=== PATIENT | female | born 1945 | race Caucasian/White ===

== ENCOUNTER 2019-08-29 17:40 | Inpatient (IN) | payer MEDICARE, MEDICAID ==
[2019-08-29] MEDS ORDERED: Morphine 10 MG/ML Syringe IVPUSH ONE (18:12)
[2019-08-29] MEDS ORDERED: Ondansetron 4 MG/2 ML SDV IVPUSH ONE (18:12)
--- NOTE | 2019-08-29 18:16 | EDM.PDOC ---
<EmeryPreetiashok - Last Filed: 08/29/19 19:15> ED HPI GENERAL MEDICAL PROBLEM - General Chief Complaint: Abdominal Pain Stated Complaint: SICK Time Seen by Provider: 08/29/19 18:14 Source of Information: Reports: Patient History Limitations: Reports: No Limitations - History of Present Illness INITIAL COMMENTS - FREE TEXT/NARRATIVE: Patient 73-year-old female no significant past medical history presenting with chief complaint of right lower quadrant abdominal pain. Per the patient, the pain started several days ago and was initially generalized. Pain is since localized to the right lower quadrant. The pain does not radiate. Patient has some associated chills but no fevers or vomiting. Patient denies any urinary symptoms. Nothing seems to make the pain better or worse. Patient does not take any medication prior to arrival. Pmhx: None Pshx: None Family Hx: noncontributory Smoking history? no Etoh use? none Drug use? none In addition to that documented in the HPI above, the additional ROS was obtained : Constitutional: Denies fevers or chills Eyes: Denies vision changes ENMT: Denies sore throat CV: Denies chest pain Resp: Denies SOB GI: Denies vomiting or diarrhea : Denies painful urination MSK: Denies recent trauma Skin: Denies new rashes Neuro: Denies new numbness or tingling or weakness Endocrine: Denies unexpected weight loss Heme: Denies bleeding disorders I have reviewed the triage vital signs Const: Well nourished, well developed, appears stated age Eyes: PERRL, no conjunctival injection HENT: NCAT, Neck supple without meningismus CV: RRR, Warm, well-perfused extremities RESP: CTAB, Unlabored respiratory effort GI: Tender palpation of the right lower quadrant with positive McBurney's point. Soft abdomen with no guarding, non-distended, no masses MSK: No gross deformities appreciated Skin: Warm, dry. No rashes Neuro: Alert, tar chaser II-XII grossly intact. Sensation and motor function of extremities grossly intact. Psych: Appropriate mood and affect Assessment and plan: Patient 74-year-old female presenting with a chief complaint of right lower quadrant abdominal pain. Patient is well-appearing and nontoxic. Differential diagnosis include appendicitis, colitis, urinary tract infection, kidney stone. Labs and CT scan were ordered to evaluate for each of these differentials. Patient given pain medications and antiemetics in the ER. BC demonstrated leukocytosis to 15,000. Patient had noticeable acute kidney injury with a GFR of 40. Patient given IV fluids before and after CT scan to reduce risk of further kidney damage. Patient will be signed out to overnight attending pending results for the CT scan. High concern for appendicitis at the time of signout. rlq Pain Score (Numeric/FACES): 5 - Related Data Allergies Allergy/AdvReac Type Severity Reaction Status Date / Time No Known Allergies Allergy Verified 08/29/19 18:09 ED ROS GENERAL - Review of Systems Review Of Systems: See Below ED EXAM, GI/ABD - Physical Exam Exam: See Below Course - Vital Signs Last Recorded V/S: Last Vital Signs Temp 36.6 C 08/29/19 20:45 Pulse 82 08/29/19 20:45 Resp 18 08/29/19 20:45 BP 119/54 L 08/29/19 20:45 Pulse Ox 97 08/29/19 20:45 - Orders/Labs/Meds Orders: Active Orders 24 hr Category Date Time Status Patient Status [ADT] Routine ADT 08/29/19 20:45 Active Antiembolic Devices [RC] PER UNIT ROUTINE Care 08/29/19 20:44 Active Insert Urinary Catheter [OM.PC] Timed Care 08/29/19 20:44 Ordered Oxygen Therapy [RC] ASDIRECTED Care 08/29/19 20:44 Active RT Incentive Spirometry [RC] Q1HWA Care 08/29/19 20:44 Active Skin Preparation [RC] .PREOP Care 08/29/19 20:44 Active Urinary Catheter Assessment [RC] ASDIRECTED Care 08/29/19 20:44 Active Urinary Catheter Assessment [RC] ASDIRECTED Care 08/29/19 20:44 Active Urinary Catheter Assessment [RC] ASDIRECTED Care 08/29/19 20:44 Active Vital Signs [RC] PER UNIT ROUTINE Care 08/29/19 20:44 Active Nothing Per Oral Diet [DIET] Diet 08/29/19 Dinner Active CULTURE BLOOD [BC] Stat Lab 08/29/19 19:10 Received CULTURE BLOOD [BC] Stat Lab 08/29/19 19:40 Received CULTURE URINE [RM] Stat Lab 08/29/19 18:05 Received Lactated Ringers [Ringers, Lactated] 1,000 ml Med 08/29/19 20:45 Active IV ASDIRECTED Sodium Chloride 0.9% [Saline Flush] Med 08/29/19 19:28 Active 10 ml FLUSH ASDIRECTED PRN Sodium Chloride 0.9% [Saline Flush] Med 08/29/19 19:28 Active 2.5 ml FLUSH ASDIRECTED PRN Antiembolic Hose [OM.PC] Routine Oth 08/29/19 20:44 Ordered Blood Culture x2 Reflex Set [OM.PC] Stat Oth 08/29/19 19:28 Ordered Saline Lock Insert [OM.PC] Stat Oth 08/29/19 19:28 Ordered Resuscitation Status Routine Resus Stat 08/29/19 20:44 Ordered Medication Orders Lactated Ringer's (Ringers, Lactated) 1,000 mls @ 125 mls/hr IV ASDIRECTED AURA Last Admin: 08/29/19 21:07 Dose: 125 mls/hr Sodium Chloride (Saline Flush) 10 ml FLUSH ASDIRECTED PRN PRN Reason: Keep Vein Open Sodium Chloride (Saline Flush) 2.5 ml FLUSH ASDIRECTED PRN PRN Reason: Keep Vein Open Labs: Laboratory Tests 08/29/19 08/29/19 08/29/19 Range/Units 18:05 18:10 18:10 WBC 15.25 H (4.0-11.0) K/uL RBC 4.64 (4.30-5.90) M/uL Hgb 12.5 (12.0-16.0) g/dL Hct 37.1 (36.0-46.0) % MCV 80.0 (80.0-98.0) fL MCH 26.9 L (27.0-32.0) pg MCHC 33.7 (31.0-37.0) g/dL RDW Std Deviation 44.4 (28.0-62.0) fl RDW Coeff of Gibran 15 (11.0-15.0) % Plt Count 397 (150-400) K/uL MPV 10.00 (7.40-12.00) fL Neut % (Auto) 81.4 H (48.0-80.0) % Lymph % (Auto) 9.0 L (16.0-40.0) % [place] % (Auto) 9.4 (0.0-15.0) % Eos % (Auto) 0.1 (0.0-7.0) % Baso % (Auto) 0.1 (0.0-1.5) % Neut # (Auto) 12.4 H (1.4-5.7) K/uL Lymph # (Auto) 1.4 (0.6-2.4) K/uL [place] # (Auto) 1.4 H (0.0-0.8) K/uL Eos # (Auto) 0.0 (0.0-0.7) K/uL Baso # (Auto) 0.0 (0.0-0.1) K/uL Nucleated RBC % 0.0 /100WBC Nucleated RBCs # 0 K/uL INR Lactate (0.20-2.00) mmol/L Sodium 130 L (136-145) mmol/L Potassium 3.7 (3.5-5.1) mmol/L Chloride 92 L (98-107) mmol/L Carbon Dioxide 23.5 (21.0-32.0) mmol/L BUN 58 H (7.0-18.0) mg/dL Creatinine 1.3 H (0.6-1.0) mg/dL Est Cr Clr Drug Dosing 30.48 mL/min Estimated GFR (MDRD) 40.2 ml/min Glucose 126 H (74-106) mg/dL Calcium 9.3 (8.5-10.1) mg/dL Total Bilirubin 0.6 (0.2-1.0) mg/dL AST 25 (15-37) IU/L ALT 18 (14-63) IU/L Alkaline Phosphatase 91 (46-116) U/L Troponin I (0.000-0.056) ng/mL Total Protein 8.5 H (6.4-8.2) g/dL Albumin 2.8 L (3.4-5.0) g/dL Globulin 5.7 H (2.6-4.0) g/dL Albumin/Globulin Ratio 0.5 L (0.9-1.6) Urine Color YELLOW Urine Appearance SLT CLOUDY Urine pH 6.0 (5.0-8.0) Ur Specific [place] 1.025 (1.001-1.035) Urine Protein 100 H (NEGATIVE) mg/dL Urine Glucose (UA) NEGATIVE (NEGATIVE) mg/dL Urine Ketones TRACE H (NEGATIVE) mg/dL Urine Occult Blood SMALL H (NEGATIVE) Urine Nitrite NEGATIVE (NEGATIVE) Urine Bilirubin MODERATE H (NEGATIVE) Urine Ictotest DOVETAILER Urine Urobilinogen 1.0 (<2.0) EU/dL Ur Leukocyte Esterase SMALL H (NEGATIVE) U Hyaline Cast (Auto) DOVETAILER Urine RBC 1-2 (0-2/HPF) Urine WBC 3-6 (0-5/HPF) Ur Epithelial Cells FEW (NONE-FEW) Ur Squamous Epith Cells DOVETAILER Ur Renal Epithelial Cell DOVETAILER Calcium Oxalate Crystal DOVETAILER Uric Acid Crystals DOVETAILER Triple Phos Crystals DOVETAILER Other Crystals DOVETAILER Amorphous Sediment FEW (NEGATIVE) Urine Bacteria 2+ H (NEGATIVE) Fine Granular Casts DOVETAILER Coarse Granular Casts DOVETAILER Waxy Casts DOVETAILER RBC Casts DOVETAILER WBC Casts DOVETAILER Urine Mucus FEW (NONE-MOD) Urine Other DOVETAILER Urine Trichomonas DOVETAILER Urine Yeast DOVETAILER Urine Sperm DOVETAILER Ur Oval Fat Bodies DOVETAILER Urinalysis Comment DOVETAILER SARS-CoV-2 RNA (RT-PCR) (NEGATIVE) 08/29/19 08/29/19 08/29/19 Range/Units 18:10 19:40 19:40 WBC (4.0-11.0) K/uL RBC (4.30-5.90) M/uL Hgb (12.0-16.0) g/dL Hct (36.0-46.0) % MCV (80.0-98.0) fL MCH (27.0-32.0) pg MCHC (31.0-37.0) g/dL RDW Std Deviation (28.0-62.0) fl RDW Coeff of Gibran (11.0-15.0) % Plt Count (150-400) K/uL MPV (7.40-12.00) fL Neut % (Auto) (48.0-80.0) % Lymph % (Auto) (16.0-40.0) % [place] % (Auto) (0.0-15.0) % Eos % (Auto) (0.0-7.0) % Baso % (Auto) (0.0-1.5) % Neut # (Auto) (1.4-5.7) K/uL Lymph # (Auto) (0.6-2.4) K/uL [place] # (Auto) (0.0-0.8) K/uL Eos # (Auto) (0.0-0.7) K/uL Baso # (Auto) (0.0-0.1) K/uL Nucleated RBC % /100WBC Nucleated RBCs # K/uL INR 1.04 Lactate 1.0 (0.20-2.00) mmol/L Sodium (136-145) mmol/L Potassium (3.5-5.1) mmol/L Chloride (98-107) mmol/L Carbon Dioxide (21.0-32.0) mmol/L BUN (7.0-18.0) mg/dL Creatinine (0.6-1.0) mg/dL Est Cr Clr Drug Dosing mL/min Estimated GFR (MDRD) ml/min Glucose (74-106) mg/dL Calcium (8.5-10.1) mg/dL Total Bilirubin (0.2-1.0) mg/dL AST (15-37) IU/L ALT (14-63) IU/L Alkaline Phosphatase (46-116) U/L Troponin I < 0.050 (0.000-0.056) ng/mL Total Protein (6.4-8.2) g/dL Albumin (3.4-5.0) g/dL Globulin (2.6-4.0) g/dL Albumin/Globulin Ratio (0.9-1.6) Urine Color Urine Appearance Urine pH (5.0-8.0) Ur Specific [place] (1.001-1.035) Urine Protein (NEGATIVE) mg/dL Urine Glucose (UA) (NEGATIVE) mg/dL Urine Ketones (NEGATIVE) mg/dL Urine Occult Blood (NEGATIVE) Urine Nitrite (NEGATIVE) Urine Bilirubin (NEGATIVE) Urine Ictotest Urine Urobilinogen (<2.0) EU/dL Ur Leukocyte Esterase (NEGATIVE) U Hyaline Cast (Auto) Urine RBC (0-2/HPF) Urine WBC (0-5/HPF) Ur Epithelial Cells (NONE-FEW) Ur Squamous Epith Cells Ur Renal Epithelial Cell Calcium Oxalate Crystal Uric Acid Crystals Triple Phos Crystals Other Crystals Amorphous Sediment (NEGATIVE) Urine Bacteria (NEGATIVE) Fine Granular Casts Coarse Granular Casts Waxy Casts RBC Casts WBC Casts Urine Mucus (NONE-MOD) Urine Other Urine Trichomonas Urine Yeast Urine Sperm Ur Oval Fat Bodies Urinalysis Comment SARS-CoV-2 RNA (RT-PCR) (NEGATIVE) 08/29/19 Range/Units 20:35 WBC (4.0-11.0) K/uL RBC (4.30-5.90) M/uL Hgb (12.0-16.0) g/dL Hct (36.0-46.0) % MCV (80.0-98.0) fL MCH (27.0-32.0) pg MCHC (31.0-37.0) g/dL RDW Std Deviation (28.0-62.0) fl RDW Coeff of Gibran (11.0-15.0) % Plt Count (150-400) K/uL MPV (7.40-12.00) fL Neut % (Auto) (48.0-80.0) % Lymph % (Auto) (16.0-40.0) % [place] % (Auto) (0.0-15.0) % Eos % (Auto) (0.0-7.0) % Baso % (Auto) (0.0-1.5) % Neut # (Auto) (1.4-5.7) K/uL Lymph # (Auto) (0.6-2.4) K/uL [place] # (Auto) (0.0-0.8) K/uL Eos # (Auto) (0.0-0.7) K/uL Baso # (Auto) (0.0-0.1) K/uL Nucleated RBC % /100WBC Nucleated RBCs # K/uL INR Lactate (0.20-2.00) mmol/L Sodium (136-145) mmol/L Potassium (3.5-5.1) mmol/L Chloride (98-107) mmol/L Carbon Dioxide (21.0-32.0) mmol/L BUN (7.0-18.0) mg/dL Creatinine (0.6-1.0) mg/dL Est Cr Clr Drug Dosing mL/min Estimated GFR (MDRD) ml/min Glucose (74-106) mg/dL Calcium (8.5-10.1) mg/dL Total Bilirubin (0.2-1.0) mg/dL AST (15-37) IU/L ALT (14-63) IU/L Alkaline Phosphatase (46-116) U/L Troponin I (0.000-0.056) ng/mL Total Protein (6.4-8.2) g/dL Albumin (3.4-5.0) g/dL Globulin (2.6-4.0) g/dL Albumin/Globulin Ratio (0.9-1.6) Urine Color Urine Appearance Urine pH (5.0-8.0) Ur Specific [place] (1.001-1.035) Urine Protein (NEGATIVE) mg/dL Urine Glucose (UA) (NEGATIVE) mg/dL Urine Ketones (NEGATIVE) mg/dL Urine Occult Blood (NEGATIVE) Urine Nitrite (NEGATIVE) Urine Bilirubin (NEGATIVE) Urine Ictotest Urine Urobilinogen (<2.0) EU/dL Ur Leukocyte Esterase (NEGATIVE) U Hyaline Cast (Auto) Urine RBC (0-2/HPF) Urine WBC (0-5/HPF) Ur Epithelial Cells (NONE-FEW) Ur Squamous Epith Cells Ur Renal Epithelial Cell Calcium Oxalate Crystal Uric Acid Crystals Triple Phos Crystals Other Crystals Amorphous Sediment (NEGATIVE) Urine Bacteria (NEGATIVE) Fine Granular Casts Coarse Granular Casts Waxy Casts RBC Casts WBC Casts Urine Mucus (NONE-MOD) Urine Other Urine Trichomonas Urine Yeast Urine Sperm Ur Oval Fat Bodies Urinalysis Comment SARS-CoV-2 RNA (RT-PCR) NEGATIVE (NEGATIVE) Meds: Medications Generic Name Dose Route Start Last Admin Trade Name Rashida PRN Reason Stop Dose Admin Lactated Ringer's 1,000 mls @ 125 mls/hr 08/29/19 20:45 08/29/19 21:07 Ringers, Lactated IV 125 mls/hr ASDIRECTED AURA Administration Sodium Chloride 10 ml 08/29/19 19:28 Saline Flush FLUSH ASDIRECTED PRN Keep Vein Open Sodium Chloride 2.5 ml 08/29/19 19:28 Saline Flush FLUSH ASDIRECTED PRN Keep Vein Open Discontinued Medications Generic Name Dose Route Start Last Admin Trade Name Frenayan PRN Reason Stop Dose Admin Bupivacaine HCl Confirm 08/29/19 21:10 Marcaine 0.5% Administered 08/29/19 21:11 Dose 30 ml .ROUTE .STK-MED ONE Cefazolin Sodium Confirm 08/29/19 21:10 Ancef Administered 08/29/19 21:11 Dose 1 gm .ROUTE .STK-MED ONE Fentanyl Confirm 08/29/19 21:08 Sublimaze Administered 08/29/19 21:09 Dose 250 mcg .ROUTE .STK-MED ONE Glycopyrrolate Confirm 08/29/19 21:09 Robinul Administered 08/29/19 21:10 Dose 0.2 mg .ROUTE .STK-MED ONE Sodium Chloride 1,000 mls @ 1,000 mls/hr 08/29/19 18:50 08/29/19 18:57 Normal Saline IV 08/29/19 19:49 1,000 mls/hr .Bolus ONE Administration Piperacillin Sod/Tazobactam 50 mls @ 100 mls/hr 08/29/19 18:56 08/29/19 19:04 Sod 3.375 gm/ Sodium Chloride IV 08/29/19 19:25 100 mls/hr ONETIME ONE Administration Iopamidol 100 ml 08/29/19 19:43 08/29/19 19:44 Isovue-370 (76%) IVPUSH 08/29/19 19:44 100 ml ONETIME STA Administration Ketorolac Tromethamine Confirm 08/29/19 21:09 Toradol Administered 08/29/19 21:10 Dose 30 mg .ROUTE .STK-MED ONE Lidocaine Confirm 08/29/19 21:09 Xylocaine-Mpf 2% Administered 08/29/19 21:10 Dose 5 ml .ROUTE .STK-MED ONE Midazolam HCl Confirm 08/29/19 21:08 Versed 1 Mg/Ml Administered 08/29/19 21:09 Dose 2 mg .ROUTE .STK-MED ONE Morphine Sulfate 6 mg 08/29/19 18:12 08/29/19 18:23 Morphine IVPUSH 08/29/19 18:13 6 mg ONETIME ONE Administration Ondansetron HCl 4 mg 08/29/19 18:12 08/29/19 18:21 Zofran IVPUSH 08/29/19 18:13 4 mg ONETIME ONE Administration Ondansetron HCl Confirm 08/29/19 21:09 Zofran Administered 08/29/19 21:10 Dose 4 mg .ROUTE .STK-MED ONE Propofol Confirm 08/29/19 21:08 Diprivan 20 Ml Administered 08/29/19 21:09 Dose 200 mg .ROUTE .STK-MED ONE Rocuronium [place] Confirm 08/29/19 21:09 Zemuron Administered 08/29/19 21:10 Dose 100 mg .ROUTE .STK-MED ONE Departure - Departure Disposition: Refer to Observation Clinical Impression: Acute appendicitis Qualifiers: Acute appendicitis type: unspecified acute appendicitis type Qualified Code(s) : K35.80 - Unspecified acute appendicitis - Discharge Information Sepsis Event Note - Evaluation Sepsis Screening Result: No Definite Risk - Focused Exam Vital Signs: Vital Signs Temp Pulse Resp BP Pulse Ox 08/29/19 20:45 36.6 C 82 18 119/54 L 97 08/29/19 20:00 37.1 C 88 18 107/55 L 97 08/29/19 19:45 86 18 110/49 L 08/29/19 19:00 37.4 C 88 18 110/57 L 08/29/19 18:06 36.6 C 106 H 16 120/76 94 L Date Exam was Performed: 08/29/19 Time Exam was Performed: 19:15 - My Orders Last 24 Hours: My Active Orders 08/29/19 19:10 CULTURE BLOOD [BC] Stat 08/29/19 19:28 Sodium Chloride 0.9% [Saline Flush] 10 ml FLUSH ASDIRECTED PRN Sodium Chloride 0.9% [Saline Flush] 2.5 ml FLUSH ASDIRECTED PRN Blood Culture x2 Reflex Set [OM.PC] Stat Saline Lock Insert [OM.PC] Stat 08/29/19 19:40 CULTURE BLOOD [BC] Stat - Assessment/Plan Last 24 Hours: My Active Orders 08/29/19 19:10 CULTURE BLOOD [BC] Stat 08/29/19 19:28 Sodium Chloride 0.9% [Saline Flush] 10 ml FLUSH ASDIRECTED PRN Sodium Chloride 0.9% [Saline Flush] 2.5 ml FLUSH ASDIRECTED PRN Blood Culture x2 Reflex Set [OM.PC] Stat Saline Lock Insert [OM.PC] Stat 08/29/19 19:40 CULTURE BLOOD [BC] Stat <Eduar Quiles - Last Filed: 08/29/19 21:47> Course - Vital Signs Text/Narrative:: I assumed care of this patient at [address] Tony Emery. In brief, patient is a 74-year-old female presenting with several days of abdominal pain. Found to be tachycardic and with leukocytosis on CBC, concerning for potential appendicitis or other source of intra-abdominal infection. Laboratory studies show mild hyponatremia, renal insufficiency with creatinine of 1.3. Urinalysis shows small leukocyte esterase with 2+ bacteria, reflex urine culture in progress. Patient has already received 1 L of NS along with IV Zosyn , 6 mg of IV morphine sulfate, and 4 mg of IV Zofran. Patient is currently undergoing CT imaging of the abdomen/pelvis and this is pending at time of shift change. 1930: I reevaluated the patient when she returned from CT. She is resting comfortably and does not need any additional analgesic or antiemetic medications. She continues to complain of some mild right lower quadrant abdominal pain. We have ordered 2 sets of blood cultures along with a reflex lactate. Awaiting CT read. Anticipate admission. CT abdomen/pelvis returned showing acute appendicitis with adjacent cecal ileus. Patient was made n.p.o. Blood cultures were drawn x2 and a lactate was drawn, which was within normal limits. No indication for 30 mL/kg sepsis bolus given normal lactate and lack of hypotension. Did not require vasopressor support. I paged the on-call general surgeon Dr. Lee Cavazos, who evaluated the patient in the emergency department. Will plan to admit the patient to the general surgery service where she will undergo appendectomy this evening. Her pain and nausea were well controlled and she did not require any additional symptomatic medication treatment. She was transferred to the operating room area in good condition. Departure - Departure Time of Disposition: 20:00 Condition: Good - Discharge Information *PRESCRIPTION DRUG MONITORING PROGRAM REVIEWED*: Not Applicable *COPY OF PRESCRIPTION DRUG MONITORING REPORT IN PATIENT MERLENE: Not Applicable Sepsis Event Note - Focused Exam Date Exam was Performed: 08/29/19 Time Exam was Performed: 21:45
[2019-08-29 18:45] LABS: CARBON DIOXIDE,CO2 23.5 mmol/L (21.0-32.0); POTASSIUM,K 3.7 mmol/L (3.5-5.1)
[2019-08-29] MEDS ORDERED: Sodium Chloride 0.9% 1,000 ML IV ONE (18:50)
[2019-08-29] MEDS ORDERED: Piperacillin/Tazobactam 3.375 GM in Sodium Chloride 0.9% 50 ML IV ONE (18:56)
[2019-08-29] MEDS ORDERED: Sodium Chloride 0.9% 10 ML Syringe FLUSH PRN (19:28)
[2019-08-29] MEDS ORDERED: Sodium Chloride 0.9% 2.5 ML Syringe FLUSH PRN (19:28)
[2019-08-29] MEDS ORDERED: Iopamidol 755 Mg/ML 100 ML Bottle IVPUSH STA (19:43)
--- NOTE | 2019-08-29 19:55 | CT ---
CT abdomen and pelvis Technique: Multiple axial sections were obtained from above the dome of the diaphragm inferiorly through the pubic symphysis. Intravenous contrast was utilized. No oral contrast has been given. Appendicolith Findings: Appendicolith is identified at the base of the appendix. Several additional appendicoliths are seen within the appendix. Appendix is mildly increased in size with mild surrounding inflammatory change. Findings are compatible with appendicitis. Fluid filled structure is seen next to the appendix which is most likely due to a fluid-filled cecum rather than appendiceal abscess. Other findings: Visualized lung bases show nothing acute. Low density lesion is noted within the right lobe of the liver which has indeterminate Hounsfield unit measurements but most likely represents a cyst measuring approximately 1.1 cm in size. No additional abnormality is appreciated within the liver. Spleen appears within normal limits. Moderate to large hiatal hernia is present. Adrenal glands show no nodule. Gallbladder contains no calcified gallstones. Kidneys show symmetric contrast enhancement without hydronephrosis or mass. Pancreas is within normal limits. Aorta shows atherosclerotic change without aneurysm. Atherosclerotic change continues into the iliac vessels. No free fluid is seen. Scoliosis noted within the spine with diffuse degenerative change within the lumbar spine. Several slightly prominent loops of air and fluid filled small bowel are noted within the left abdomen and mid abdomen which most likely represents an ileus. Impression: 1. Enlarged appendix containing appendicolith. Mild surrounding inflammatory change. Findings are felt compatible with appendicitis. 2. Fluid-filled structure next to the appendix most likely relating to fluid within a mildly distended cecum most likely on an ileus basis. Probable small bowel ileus also noted. 3. Other findings as noted above believed to be incidental and nonacute. Diagnostic code #5 This report was dictated in MDT
[2019-08-29] MEDS ORDERED: Lactated Ringers 1,000 ML IV SCH (20:45)
--- NOTE | 2019-08-29 20:52 | PCM.CONS ---
H&P History of Present Illness - General Date of Service: 08/29/19 Admit Problem/Dx: Admission Diagnosis/Problem Admission Diagnosis/Problem Acute appendicitis Source of Information: Patient History Limitations: Reports: No Limitations - History of Present Illness Initial Comments - Free Text/Narative: Patient is a 74-year-old female who presented to the emergency room this evening with complaints of abdominal pain that began this past Wednesday. She denies any fever or chills. No nausea or vomiting. Says her appetite has been poor. She has had some diarrhea. Doesn't remember when she last passed gas. She is quite thirsty. Has been keeping liquids down, as well as eating watermelon. No other significant oral intake. No prior history of abdominal pain. Symptom Onset Date: 08/25/19 Duration of Symptoms: Reports: Day(s):, Getting Worse Location: Reports: Abdomen Quality: Reports: Ache, Pressure, Throbbing Severity: Moderate Improves with: Reports: Rest Worsens with: Reports: Movement Associated Symptoms: Reports: Loss of Appetite. 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 Denies: Fever, Chills , Fatigue, Night Sweats, Diaphoresis, Weight Loss HEENT: Reports: No Symptoms Pulmonary: Denies: Shortness of Breath, Wheezing, Cough Cardiovascular: Denies: Chest Pain, Palpitations, Lightheadedness, Syncope Gastrointestinal: Reports: Abdominal Pain, Anorexia, Diarrhea, Decreased Appetite, Flatus. Denies: Black Stool, Bloody Stool, Constipation, Difficulty Swallowing, Distension, Hematemesis, Hematochezia, Melena, Nausea, Vomiting Genitourinary: Reports: No Symptoms Musculoskeletal: Reports: No Symptoms Skin: Denies: Cyanosis, Jaundice, Mottled, Pallor, Diaphoresis, Dryness, Bruising, Pruritis, Rash Psychiatric: Denies: Confusion, Depression, Anxiety Neurological: Reports: No Symptoms Hematologic/Lymphatic: Denies: Anemia, Easy Bleeding, Easy Bruising Immunologic: Reports: No Symptoms Exam - Exam Exam: See Below - Vital Signs Vital Signs: Last Vital Signs Temp 98.7 F 08/29/19 20:00 Pulse 88 08/29/19 20:00 Resp 18 08/29/19 20:00 BP 107/55 L 08/29/19 20:00 Pulse Ox 97 08/29/19 20:00 Weight: 220 lb - Exam Quality Assessment: No: Supplemental Oxygen, Central Line/PICC, Urinary Catheter General: Alert, Oriented, Cooperative, Moderate Distress HEENT: Conjunctiva Clear, EACs Clear, EOMI, Hearing Intact, Mucosa Moist & [place] , PERRLA. No: Scleral Icterus Neck: Supple, Trachea Midline, +2 Carotid Pulse wo Bruit Lungs: Clear to Auscultation, Normal Respiratory Effort. No: Decreased Breath Sounds, Crackles, Rales, Wheezing Cardiovascular: Regular Rate, Regular Rhythm, Normal S1, Normal S2. No: Tachycardia, Systolic Murmur, Diastolic Murmur GI/Abdominal Exam: Soft, No Mass, Tender, Abnormal Bowel Sounds (hypoactive). No: Guarding, Rigid, Rebound, Hernia (Female) Exam: Deferred Rectal (Female) Exam: Deferred Back Exam: Normal Inspection Extremities: Normal Inspection, Normal Range of Motion. No: Joint Swelling Peripheral Pulses: 4+: Posterior Tibial (L), Posterior Tibial (R), Dorsalis Pedis (L), Dorsalis Pedis (R) Skin: Warm, Dry, Intact Neurological: Cranial Nerves Intact Neuro Extensive - Mental Status: Alert, Oriented x3, Normal Mood/Affect, Normal Cognition Psychiatric: Alert, Normal Affect, Normal Mood - Patient Data Lab Results Last 24 hrs: Laboratory Results - last 24 hr 08/29/19 08/29/19 08/29/19 Range/Units 18:05 18:10 18:10 WBC 15.25 H (4.0-11.0) K/uL RBC 4.64 (4.30-5.90) M/uL Hgb 12.5 (12.0-16.0) g/dL Hct 37.1 (36.0-46.0) % MCV 80.0 (80.0-98.0) fL MCH 26.9 L (27.0-32.0) pg MCHC 33.7 (31.0-37.0) g/dL RDW Std Deviation 44.4 (28.0-62.0) fl RDW Coeff of Gibran 15 (11.0-15.0) % Plt Count 397 (150-400) K/uL MPV 10.00 (7.40-12.00) fL Neut % (Auto) 81.4 H (48.0-80.0) % Lymph % (Auto) 9.0 L (16.0-40.0) % Carver % (Auto) 9.4 (0.0-15.0) % Eos % (Auto) 0.1 (0.0-7.0) % Baso % (Auto) 0.1 (0.0-1.5) % Neut # (Auto) 12.4 H (1.4-5.7) K/uL Lymph # (Auto) 1.4 (0.6-2.4) K/uL Carver # (Auto) 1.4 H (0.0-0.8) K/uL Eos # (Auto) 0.0 (0.0-0.7) K/uL Baso # (Auto) 0.0 (0.0-0.1) K/uL Nucleated RBC % 0.0 /100WBC Nucleated RBCs # 0 K/uL INR Lactate (0.20-2.00) mmol/L Sodium 130 L (136-145) mmol/L Potassium 3.7 (3.5-5.1) mmol/L Chloride 92 L (98-107) mmol/L Carbon Dioxide 23.5 (21.0-32.0) mmol/L BUN 58 H (7.0-18.0) mg/dL Creatinine 1.3 H (0.6-1.0) mg/dL Est Cr Clr Drug Dosing 30.48 mL/min Estimated GFR (MDRD) 40.2 ml/min Glucose 126 H (74-106) mg/dL Calcium 9.3 (8.5-10.1) mg/dL Total Bilirubin 0.6 (0.2-1.0) mg/dL AST 25 (15-37) IU/L ALT 18 (14-63) IU/L Alkaline Phosphatase 91 (46-116) U/L Troponin I (0.000-0.056) ng/mL Total Protein 8.5 H (6.4-8.2) g/dL Albumin 2.8 L (3.4-5.0) g/dL Globulin 5.7 H (2.6-4.0) g/dL Albumin/Globulin Ratio 0.5 L (0.9-1.6) Urine Color YELLOW Urine Appearance SLT CLOUDY Urine pH 6.0 (5.0-8.0) Ur Specific Mallory 1.025 (1.001-1.035) Urine Protein 100 H (NEGATIVE) mg/dL Urine Glucose (UA) NEGATIVE (NEGATIVE) mg/dL Urine Ketones TRACE H (NEGATIVE) mg/dL Urine Occult Blood SMALL H (NEGATIVE) Urine Nitrite NEGATIVE (NEGATIVE) Urine Bilirubin MODERATE H (NEGATIVE) Urine Ictotest FAMILY SERVICE COUNSELOR Urine Urobilinogen 1.0 (<2.0) EU/dL Ur Leukocyte Esterase SMALL H (NEGATIVE) U Hyaline Cast (Auto) FAMILY SERVICE COUNSELOR Urine RBC 1-2 (0-2/HPF) Urine WBC 3-6 (0-5/HPF) Ur Epithelial Cells FEW (NONE-FEW) Ur Squamous Epith Cells FAMILY SERVICE COUNSELOR Ur Renal Epithelial Cell FAMILY SERVICE COUNSELOR Calcium Oxalate Crystal FAMILY SERVICE COUNSELOR Uric Acid Crystals FAMILY SERVICE COUNSELOR Triple Phos Crystals FAMILY SERVICE COUNSELOR Other Crystals FAMILY SERVICE COUNSELOR Amorphous Sediment FEW (NEGATIVE) Urine Bacteria 2+ H (NEGATIVE) Fine Granular Casts FAMILY SERVICE COUNSELOR Coarse Granular Casts FAMILY SERVICE COUNSELOR Waxy Casts FAMILY SERVICE COUNSELOR RBC Casts FAMILY SERVICE COUNSELOR WBC Casts FAMILY SERVICE COUNSELOR Urine Mucus FEW (NONE-MOD) Urine Other FAMILY SERVICE COUNSELOR Urine Trichomonas FAMILY SERVICE COUNSELOR Urine Yeast FAMILY SERVICE COUNSELOR Urine Sperm FAMILY SERVICE COUNSELOR Ur Oval Fat Bodies FAMILY SERVICE COUNSELOR Urinalysis Comment FAMILY SERVICE COUNSELOR 08/29/19 08/29/19 08/29/19 Range/Units 18:10 19:40 19:40 WBC (4.0-11.0) K/uL RBC (4.30-5.90) M/uL Hgb (12.0-16.0) g/dL Hct (36.0-46.0) % MCV (80.0-98.0) fL MCH (27.0-32.0) pg MCHC (31.0-37.0) g/dL RDW Std Deviation (28.0-62.0) fl RDW Coeff of Gibran (11.0-15.0) % Plt Count (150-400) K/uL MPV (7.40-12.00) fL Neut % (Auto) (48.0-80.0) % Lymph % (Auto) (16.0-40.0) % Carver % (Auto) (0.0-15.0) % Eos % (Auto) (0.0-7.0) % Baso % (Auto) (0.0-1.5) % Neut # (Auto) (1.4-5.7) K/uL Lymph # (Auto) (0.6-2.4) K/uL Carver # (Auto) (0.0-0.8) K/uL Eos # (Auto) (0.0-0.7) K/uL Baso # (Auto) (0.0-0.1) K/uL Nucleated RBC % /100WBC Nucleated RBCs # K/uL INR 1.04 Lactate 1.0 (0.20-2.00) mmol/L Sodium (136-145) mmol/L Potassium (3.5-5.1) mmol/L Chloride (98-107) mmol/L Carbon Dioxide (21.0-32.0) mmol/L BUN (7.0-18.0) mg/dL Creatinine (0.6-1.0) mg/dL Est Cr Clr Drug Dosing mL/min Estimated GFR (MDRD) ml/min Glucose (74-106) mg/dL Calcium (8.5-10.1) mg/dL Total Bilirubin (0.2-1.0) mg/dL AST (15-37) IU/L ALT (14-63) IU/L Alkaline Phosphatase (46-116) U/L Troponin I < 0.050 (0.000-0.056) ng/mL Total Protein (6.4-8.2) g/dL Albumin (3.4-5.0) g/dL Globulin (2.6-4.0) g/dL Albumin/Globulin Ratio (0.9-1.6) Urine Color Urine Appearance Urine pH (5.0-8.0) Ur Specific Mallory (1.001-1.035) Urine Protein (NEGATIVE) mg/dL Urine Glucose (UA) (NEGATIVE) mg/dL Urine Ketones (NEGATIVE) mg/dL Urine Occult Blood (NEGATIVE) Urine Nitrite (NEGATIVE) Urine Bilirubin (NEGATIVE) Urine Ictotest Urine Urobilinogen (<2.0) EU/dL Ur Leukocyte Esterase (NEGATIVE) U Hyaline Cast (Auto) Urine RBC (0-2/HPF) Urine WBC (0-5/HPF) Ur Epithelial Cells (NONE-FEW) Ur Squamous Epith Cells Ur Renal Epithelial Cell Calcium Oxalate Crystal Uric Acid Crystals Triple Phos Crystals Other Crystals Amorphous Sediment (NEGATIVE) Urine Bacteria (NEGATIVE) Fine Granular Casts Coarse Granular Casts Waxy Casts RBC Casts WBC Casts Urine Mucus (NONE-MOD) Urine Other Urine Trichomonas Urine Yeast Urine Sperm Ur Oval Fat Bodies Urinalysis Comment Result Diagrams: 08/29/19 18:10 08/29/19 18:10 Sepsis Event Note - Evaluation Sepsis Screening Result: No Definite Risk - Focused Exam Vital Signs: Vital Signs Temp Pulse Resp BP Pulse Ox 08/29/19 20:00 98.7 F 88 18 107/55 L 97 08/29/19 19:45 86 18 110/49 L 08/29/19 19:00 99.4 F 88 18 110/57 L 08/29/19 18:06 97.8 F 106 H 16 120/76 94 L Date Exam was Performed: 08/29/19 Time Exam was Performed: 20:54 Consult PN Assessment/Plan Procedures: Procedures ASSAY OF FREE THYROXINE (02/21/16) ASSAY THYROID STIM HORMONE (02/21/16) COMPLETE CBC W/AUTO DIFF WBC (02/21/16) COMPREHEN METABOLIC PANEL (02/21/16) IMMUNIZATION ADMIN (05/24/17) LIPID PANEL (02/21/16) OFFICE/OUTPATIENT VISIT NEW (05/24/17) ROUTINE VENIPUNCTURE (02/21/16) TD VACC NO PRESV 7 YRS+ IM (05/24/17) (1) Right lower quadrant abdominal pain SNOMED Code(s): 886733549 Code(s): R10.31 - RIGHT LOWER QUADRANT PAIN Priority: High Current Visit : Yes (2) Loss of appetite SNOMED Code(s): 71617458 Code(s): R63.0 - ANOREXIA Priority: High Current Visit: Yes (3) Appendicitis SNOMED Code(s): 16194368 Code(s): K37 - UNSPECIFIED APPENDICITIS Priority: High Current Visit: Yes Qualifiers: Appendicitis type: acute appendicitis Acute appendicitis type: unspecified acute appendicitis type Qualified Code(s): K35.80 - Unspecified acute appendicitis (4) Hypothyroidism SNOMED Code(s): 16689605 Code(s): E03.9 - HYPOTHYROIDISM, UNSPECIFIED Priority: Low Current Visit : Yes Qualifiers: Hypothyroidism type: unspecified Qualified Code(s): E03.9 - Hypothyroidism , unspecified (5) Depression SNOMED Code(s): 28214123 Code(s): F32.9 - MAJOR DEPRESSIVE DISORDER, SINGLE EPISODE, UNSPECIFIED Priority: Low Current Visit: Yes Qualifiers: Major depression recurrence: unspecified whether recurrent Active/ Remission status: remission status unspecified Problem List Initiated/Reviewed/Updated: Yes My Orders Last 24 Hours: My Active Orders 08/29/19 20:44 Antiembolic Devices [RC] PER UNIT ROUTINE Insert Urinary Catheter [OM.PC] Timed Oxygen Therapy [RC] ASDIRECTED RT Incentive Spirometry [RC] Q1HWA Skin Preparation [RC] .PREOP Urinary Catheter Assessment [RC] ASDIRECTED Urinary Catheter Assessment [RC] ASDIRECTED Urinary Catheter Assessment [RC] ASDIRECTED Vital Signs [RC] PER UNIT ROUTINE Antiembolic Hose [OM.PC] Routine Resuscitation Status Routine 08/29/19 20:45 Patient Status [ADT] Routine Lactated Ringers @ 125 MLS/HR(1000ml) Lactated Ringers [Ringers, Lactated] 1, 000 ml IV ASDIRECTED 08/29/19 Dinner Nothing Per Oral Diet [DIET] Plan: Laparoscopic appendectomy, possible open appendectomy, possible laparotomy. The operative procedures, along with the risks, including, but not limited to, bleeding, infection, pneumonia, deep venous thrombosis, pulmonary emboli, myocardial infarction, and adjacent organ injury have been reviewed with the patient who voices understanding, offers no questions and agrees to proceed.
[2019-08-29] MEDS ORDERED: Midazolam 1 MG/ML 2 ML SDV ONE (21:08)
[2019-08-29] MEDS ORDERED: fentaNYL 250 MCG/5 ML SDV ONE ×2 (21:08→22:52)
[2019-08-29] MEDS ORDERED: Propofol 200 MG/20 ML SDV ONE (21:08)
[2019-08-29] MEDS ORDERED: Lidocaine 2% 5 ML SDV ONE (21:09)
[2019-08-29] MEDS ORDERED: Ketorolac 30 MG/ML SDV ONE (21:09)
[2019-08-29] MEDS ORDERED: Glycopyrrolate 0.2 MG/ML SDV ONE (21:09)
[2019-08-29] MEDS ORDERED: Rocuronium 100 MG/10 ML Syringe ONE (21:09)
[2019-08-29] MEDS ORDERED: Ondansetron 4 MG/2 ML SDV ONE (21:09)
[2019-08-29] MEDS ORDERED: ceFAZolin 1 GM Vial ONE ×2 (21:10→22:46)
[2019-08-29] MEDS ORDERED: Bupivacaine 0.5% 30 ML SDV ONE (21:10)
[2019-08-29] MEDS ORDERED: fentaNYL 100 MCG/2 ML SDV IVPUSH PRN (22:09)
--- NOTE | 2019-08-29 22:09 | PCM.PREANE ---
Preanesthetic Assessment - Anesthesia/Transfusion/Family Hx Anesthesia History: Prior Anesthesia Without Reaction - Review of Systems Gastrointestinal: Abdominal Pain - Physical Assessment NPO Status Date: 08/29/19 NPO Status Time: 00:05 Vital Signs: Last Vital Signs Temp 36.6 C 08/29/19 20:45 Pulse 82 08/29/19 20:45 Resp 18 08/29/19 20:45 BP 119/54 L 08/29/19 20:45 Pulse Ox 97 08/29/19 20:45 Height: 1.57 m Weight: 99.79 kg ASA Class: 2E - Lab Values: Laboratory Last Values WBC 15.25 K/uL (4.0-11.0) H 08/29/19 18:10 RBC 4.64 M/uL (4.30-5.90) 08/29/19 18:10 Hgb 12.5 g/dL (12.0-16.0) 08/29/19 18:10 Hct 37.1 % (36.0-46.0) 08/29/19 18:10 MCV 80.0 fL (80.0-98.0) 08/29/19 18:10 MCH 26.9 pg (27.0-32.0) L 08/29/19 18:10 MCHC 33.7 g/dL (31.0-37.0) 08/29/19 18:10 RDW Std Deviation 44.4 fl (28.0-62.0) 08/29/19 18:10 RDW Coeff of Gibran 15 % (11.0-15.0) 08/29/19 18:10 Plt Count 397 K/uL (150-400) 08/29/19 18:10 MPV 10.00 fL (7.40-12.00) 08/29/19 18:10 Neut % (Auto) 81.4 % (48.0-80.0) H 08/29/19 18:10 Lymph % (Auto) 9.0 % (16.0-40.0) L 08/29/19 18:10 [place] % (Auto) 9.4 % (0.0-15.0) 08/29/19 18:10 Eos % (Auto) 0.1 % (0.0-7.0) 08/29/19 18:10 Baso % (Auto) 0.1 % (0.0-1.5) 08/29/19 18:10 Neut # (Auto) 12.4 K/uL (1.4-5.7) H 08/29/19 18:10 Lymph # (Auto) 1.4 K/uL (0.6-2.4) 08/29/19 18:10 [place] # (Auto) 1.4 K/uL (0.0-0.8) H 08/29/19 18:10 Eos # (Auto) 0.0 K/uL (0.0-0.7) 08/29/19 18:10 Baso # (Auto) 0.0 K/uL (0.0-0.1) 08/29/19 18:10 Nucleated RBC % 0.0 /100WBC 08/29/19 18:10 Nucleated RBCs # 0 K/uL 08/29/19 18:10 INR 1.04 08/29/19 18:10 Lactate 1.0 mmol/L (0.20-2.00) 08/29/19 19:40 Sodium 130 mmol/L (136-145) L 08/29/19 18:10 Potassium 3.7 mmol/L (3.5-5.1) 08/29/19 18:10 Chloride 92 mmol/L (98-107) L 08/29/19 18:10 Carbon Dioxide 23.5 mmol/L (21.0-32.0) 08/29/19 18:10 BUN 58 mg/dL (7.0-18.0) H 08/29/19 18:10 Creatinine 1.3 mg/dL (0.6-1.0) H 08/29/19 18:10 Est Cr Clr Drug Dosing 30.48 mL/min 08/29/19 18:10 Estimated GFR (MDRD) 40.2 ml/min 08/29/19 18:10 Glucose 126 mg/dL (74-106) H 08/29/19 18:10 Calcium 9.3 mg/dL (8.5-10.1) 08/29/19 18:10 Total Bilirubin 0.6 mg/dL (0.2-1.0) 08/29/19 18:10 AST 25 IU/L (15-37) 08/29/19 18:10 ALT 18 IU/L (14-63) 08/29/19 18:10 Alkaline Phosphatase 91 U/L (46-116) 08/29/19 18:10 Troponin I < 0.050 ng/mL (0.000-0.056) 08/29/19 19:40 Total Protein 8.5 g/dL (6.4-8.2) H 08/29/19 18:10 Albumin 2.8 g/dL (3.4-5.0) L 08/29/19 18:10 Globulin 5.7 g/dL (2.6-4.0) H 08/29/19 18:10 Albumin/Globulin Ratio 0.5 (0.9-1.6) L 08/29/19 18:10 Urine Color YELLOW 08/29/19 18:05 Urine Appearance SLT CLOUDY 08/29/19 18:05 Urine pH 6.0 (5.0-8.0) 08/29/19 18:05 Ur Specific Pease 1.025 (1.001-1.035) 08/29/19 18:05 Urine Protein 100 mg/dL (NEGATIVE) H 08/29/19 18:05 Urine Glucose (UA) NEGATIVE mg/dL (NEGATIVE) 08/29/19 18:05 Urine Ketones TRACE mg/dL (NEGATIVE) H 08/29/19 18:05 Urine Occult Blood SMALL (NEGATIVE) H 08/29/19 18:05 Urine Nitrite NEGATIVE (NEGATIVE) 08/29/19 18:05 Urine Bilirubin MODERATE (NEGATIVE) H 08/29/19 18:05 Urine Ictotest TRANSPORTATION ECONOMICS TEACHER 08/29/19 18:05 Urine Urobilinogen 1.0 EU/dL (<2.0) 08/29/19 18:05 Ur Leukocyte Esterase SMALL (NEGATIVE) H 08/29/19 18:05 U Hyaline Cast (Auto) TRANSPORTATION ECONOMICS TEACHER 08/29/19 18:05 Urine RBC 1-2 (0-2/HPF) 08/29/19 18:05 Urine WBC 3-6 (0-5/HPF) 08/29/19 18:05 Ur Epithelial Cells FEW (NONE-FEW) 08/29/19 18:05 Ur Squamous Epith Cells TRANSPORTATION ECONOMICS TEACHER 08/29/19 18:05 Ur Renal Epithelial Cell TRANSPORTATION ECONOMICS TEACHER 08/29/19 18:05 Calcium Oxalate Crystal TRANSPORTATION ECONOMICS TEACHER 08/29/19 18:05 Uric Acid Crystals TRANSPORTATION ECONOMICS TEACHER 08/29/19 18:05 Triple Phos Crystals TRANSPORTATION ECONOMICS TEACHER 08/29/19 18:05 Other Crystals TRANSPORTATION ECONOMICS TEACHER 08/29/19 18:05 Amorphous Sediment FEW (NEGATIVE) 08/29/19 18:05 Urine Bacteria 2+ (NEGATIVE) H 08/29/19 18:05 Fine Granular Casts TRANSPORTATION ECONOMICS TEACHER 08/29/19 18:05 Coarse Granular Casts TRANSPORTATION ECONOMICS TEACHER 08/29/19 18:05 Waxy Casts TRANSPORTATION ECONOMICS TEACHER 08/29/19 18:05 RBC Casts TRANSPORTATION ECONOMICS TEACHER 08/29/19 18:05 WBC Casts TRANSPORTATION ECONOMICS TEACHER 08/29/19 18:05 Urine Mucus FEW (NONE-MOD) 08/29/19 18:05 Urine Other TRANSPORTATION ECONOMICS TEACHER 08/29/19 18:05 Urine Trichomonas TRANSPORTATION ECONOMICS TEACHER 08/29/19 18:05 Urine Yeast TRANSPORTATION ECONOMICS TEACHER 08/29/19 18:05 Urine Sperm TRANSPORTATION ECONOMICS TEACHER 08/29/19 18:05 Ur Oval Fat Bodies TRANSPORTATION ECONOMICS TEACHER 08/29/19 18:05 Urinalysis Comment TRANSPORTATION ECONOMICS TEACHER 08/29/19 18:05 SARS-CoV-2 RNA (RT-PCR) NEGATIVE (NEGATIVE) 08/29/19 20:35 - Allergies Allergies/Adverse Reactions: Allergies Allergy/AdvReac Type Severity Reaction Status Date / Time No Known Allergies Allergy Verified 08/29/19 18:09 - Acknowledgements Anesthesia Type Planned: General Anesthesia Pt an Appropriate Candidate for the Planned Anesthesia: Yes Alternatives and Risks of Anesthesia Discussed w Pt/Guardian: Yes Pt/Guardian Understands and Agrees with Anesthesia Plan: Yes PreAnesthesia Questionnaire Gastrointestinal History: Reports: GERD Genitourinary History: Reports: Other (See Below) Other Genitourinary History: MULTIPLE BLADDER SURGERIES WITH SLING PLACEMENT 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: Endocrine/Metabolic History: Reports: Hypothyroidism - SUBSTANCE USE Smoking Status *Q: Unknown Ever Smoked - CURRENT (IN HOUSE) MEDS Current Meds: Current Medications Lactated Ringer's (Ringers, Lactated) 1,000 mls @ 125 mls/hr IV ASDIRECTED [facility] Last Admin: 08/29/19 21:07 Dose: 125 mls/hr Sodium Chloride (Saline Flush) 10 ml FLUSH ASDIRECTED PRN PRN Reason: Keep Vein Open Sodium Chloride (Saline Flush) 2.5 ml FLUSH ASDIRECTED PRN PRN Reason: Keep Vein Open Discontinued Medications Bupivacaine HCl (Marcaine 0.5%) Confirm Administered Dose 30 ml .ROUTE .STK-MED ONE Stop: 08/29/19 21:11 Cefazolin Sodium (Ancef) Confirm Administered Dose 1 gm .ROUTE .STK-MED ONE Stop: 08/29/19 21:11 Fentanyl (Sublimaze) Confirm Administered Dose 250 mcg .ROUTE .STK-MED ONE Stop: 08/29/19 21:09 Glycopyrrolate (Robinul) Confirm Administered Dose 0.2 mg .ROUTE .STK-MED ONE Stop: 08/29/19 21:10 Sodium Chloride (Normal Saline) 1,000 mls @ 1,000 mls/hr IV .Bolus ONE Stop: 08/29/19 19:49 Last Admin: 08/29/19 18:57 Dose: 1,000 mls/hr Piperacillin Sod/Tazobactam (Sod 3.375 gm/ Sodium Chloride) 50 mls @ 100 mls/ hr IV ONETIME ONE Stop: 08/29/19 19:25 Last Admin: 08/29/19 19:04 Dose: 100 mls/hr Iopamidol (Isovue-370 (76%)) 100 ml IVPUSH ONETIME STA Stop: 08/29/19 19:44 Last Admin: 08/29/19 19:44 Dose: 100 ml Ketorolac Tromethamine (Toradol) Confirm Administered Dose 30 mg .ROUTE .STK- MED ONE Stop: 08/29/19 21:10 Lidocaine (Xylocaine-Mpf 2%) Confirm Administered Dose 5 ml .ROUTE .STK-MED ONE Stop: 08/29/19 21:10 Midazolam HCl (Versed 1 Mg/Ml) Confirm Administered Dose 2 mg .ROUTE .STK-MED ONE Stop: 08/29/19 21:09 Morphine Sulfate (Morphine) 6 mg IVPUSH ONETIME ONE Stop: 08/29/19 18:13 Last Admin: 08/29/19 18:23 Dose: 6 mg Ondansetron HCl (Zofran) 4 mg IVPUSH ONETIME ONE Stop: 08/29/19 18:13 Last Admin: 08/29/19 18:21 Dose: 4 mg Ondansetron HCl (Zofran) Confirm Administered Dose 4 mg .ROUTE .STK-MED ONE Stop: 08/29/19 21:10 Propofol (Diprivan 20 Ml) Confirm Administered Dose 200 mg .ROUTE .STK-MED ONE Stop: 08/29/19 21:09 Rocuronium [place] (Zemuron) Confirm Administered Dose 100 mg .ROUTE .STK-MED ONE Stop: 08/29/19 21:10
[2019-08-29] MEDS ORDERED: Acetaminophen 1,000 MG in Premix Bag 1 BAG IV PRN (22:10)
[2019-08-29] MEDS ORDERED: Sugammadex Sodium 200 MG/2 ML VIAL ONE (22:11)
[2019-08-29] MEDS ORDERED: metroNIDAZOLE/Normal Saline 500 MG in Premix Bag 1 BAG IV ONE ×2 (23:22→23:25)
[2019-08-29] MEDS ORDERED: metroNIDAZOLE/Normal Saline 200 ML ONE (23:25)
[2019-08-30] MEDS ORDERED: Ondansetron 4 MG/2 ML SDV IVPUSH PRN ×2 (00:09→00:11)
[2019-08-30] MEDS ORDERED: Acetaminophen 325 MG Tab PO PRN (00:09)
[2019-08-30] MEDS ORDERED: Naloxone 0.4 MG/ML Syringe IVPUSH PRN (00:11)
[2019-08-30] MEDS ORDERED: diphenhydrAMINE 50 MG/ML SDV IVPUSH PRN (00:11)
[2019-08-30] MEDS ORDERED: diphenhydrAMINE 25 MG Cap PO PRN (00:11)
[2019-08-30] MEDS ORDERED: Morphine PF 30 MG/30 ML PCA Vial IV SCH (00:15)
--- NOTE | 2019-08-30 00:20 | PCM.OPNOTE ---
- General Post-Op/Procedure Note Date of Surgery/Procedure: 08/29/19 Operative Procedure(s): Attempted laparoscopic appendectomy with conversion to open appendectomy Pre Op Diagnosis: Acute appendicitis Post-Op Diagnosis: Acute ruptured appendicitis with intra-abdominal abscess and generalized peritonitis Anesthesia Technique: General ET Tube (ASA IIE) Primary Surgeon: Lee Cavazos Plant Operations Engineer: Tabatha Mackenzie Reason Plant Operations Engineer Was Necessary: Exposure and manipulation of cecum Fluid Replacement, Intraop: 1,500 Output, Urine Amount: 350 EBL in mLs: 50 Surgical Drain/Tube Type: Scott Drain Drain/Tube Comments:: Drain is placed along the right paracolic gutter Condition: Fair Free Text/Narrative:: DICTATION [id number] CPT CODE 99011
--- NOTE | 2019-08-30 00:35 | PCM.POSTAN ---
POST ANESTHESIA ASSESSMENT - MENTAL STATUS Mental Status: Alert - VITAL SIGNS Vital Signs: Last Vital Signs Temp 36.6 C 08/29/19 20:45 Pulse 82 08/29/19 20:45 Resp 18 08/29/19 20:45 BP 119/54 L 08/29/19 20:45 Pulse Ox 97 08/29/19 20:45 - RESPIRATORY Respiratory Status: Respiratory Rate WNL - CARDIOVASCULAR CV Status: Pulse Rate WNL - GASTROINTESTINAL GI Status: No Symptoms - POST OP HYDRATION Hydration Status: Adequate & Stable
[2019-08-30] MEDS: Metoclopramide 10 MG/2 ML SDV IV SCH ×5 (01:38→23:57)
[2019-08-30] MEDS: Lactated Ringers 1,000 ML IV SCH ×6 (01:40→19:38)
[2019-08-30] MEDS: Piperacillin/Tazobactam 3.375 GM in Sodium Chloride 0.9% 50 ML IV SCH ×4 (01:56→18:39)
--- NOTE | 2019-08-30 02:55 | OR ---
SURGEON: Lee Cavazos M.D. DATE OF PROCEDURE: 08/29/2019 OPERATION PERFORMED: Attempted laparoscopic appendectomy with conversion to open appendectomy. PRIMARY SURGEON: Lee Cavazos M.D.. REFUND CLERK: public services assistant: Dr. Mackenzie. ANESTHESIA: General endotracheal. ASA CLASSIFICATION: II. PREOPERATIVE DIAGNOSIS: Acute appendicitis. POSTOPERATIVE DIAGNOSIS: Acute ruptured appendicitis with intraabdominal abscess. ESTIMATED BLOOD LOSS: 50 mL. INTRAOPERATIVE FLUID REPLACEMENT: 1500 mL of crystalloid. INTRAOPERATIVE URINE OUTPUT: 350 mL. DESCRIPTION OF PROCEDURE: The patient was taken to the operating room and placed on the operating table in the supine position. A time-out was called for appropriate identification of the patient and procedure. Sequential compression boots were placed. Following satisfactory attainment of general endotracheal anesthesia, a Santiago catheter was placed in the patient's urinary bladder. The abdomen was then prepped with Betadine solution and sterile drapes were applied. The skin just above the umbilicus was infiltrated with 0.5% Marcaine solution. A skin incision was made and deepened through the subcutaneous tissue obtaining hemostasis with the use of electrocautery. A Veress needle was introduced into the peritoneal cavity. Saline drop test was positive. Carbon dioxide pneumoperitoneum was established with the release set at 13 cm of water. Once a satisfactory pneumoperitoneum was established, 5 mm camera and port were placed through the supraumbilical incision. The patient was now positioned with her head down and rolled to the left. Under camera vision, 12 mm suprapubic and 5 mm left lower quadrant ports were placed. It should be noted that prior to prepping the abdomen, a mass could be palpated in the right lower quadrant. Nevertheless, with all our ports in, we did attempt to mobilize the small bowel with multiple adhesions. An abscess cavity was entered and all fluid was aspirated. Dissection was continued, however, we were never able to adequately visualize the appendix, and it was felt that an open procedure was safest with the patient. With that in mind, the laparoscopic instruments were removed and the open instruments brought to the operating table. Dr. Mackenzie was able to join me in the operating room to assist with the open portion. A right lower quadrant McBurney incision was made. The incision was carried out laterally and deepened through generous subcutaneous tissue. The external oblique fascia was divided. The rectus muscle was divided. The peritoneum was grasped between hemostats and incised, and the peritoneal cavity was entered. Again, a large phlegmonous mass was noted in the right lower quadrant. With blunt dissection, we were eventually able to mobilize the cecum. It was apparent that the appendix had perforated approximately 1 to 1.5 cm distal to the cecum, and the distal portion of the appendix did contain what appeared to be a mucocele. The base of the appendix was stapled with the ILS stapler, and the residual appendix removed. The distal appendix and mesoappendix were taken down with the Harmonic Scalpel and removed. There did appear to be a mucocele in the distal portion of the appendix, and care was taken not to disturb this or open it. The specimen was then removed and the wound inspected for hemostasis. No significant bleeding was noted. The abdominal cavity was irrigated with a total of 4 L of 1% Ancef solution. No bleeding was noted. There was a tremendous amount of raw surface and rind present, and it was not possible to remove this. A 24-German Scott drain was placed through the suprapubic incision and placed along the right pericolic gutter. This was secured to the skin with a 2-0 silk suture. Once that was accomplished, the attention was again turned to the McBurney incision. The peritoneum was closed with interrupted 0 Vicryl. The muscle layers were anatomically reapproximated with interrupted 0 Vicryl. The subcutaneous tissues were packed open with 3 inch Michelle. The suprapubic, left lower quadrant, and supraumbilical incisions were reapproximated with skin clips. Sterile dressings were applied and taped securely in place. Sponge, needle, and instrument counts were all correct. The patient tolerated the procedure well and was taken to recovery room in stable condition. She will be maintained in the intensive care unit tonight. The Santiago catheter will remain in place tonight. KRYSTIN / LLUVIA /[id number]
--- NOTE | 2019-08-30 05:43 | PN ---
THC Physician - Brief Progress [id number]/20/2020 05:32[facility] Aide [place], [place] - [facility] - ADELE CERDADate of Service 08/30/2019 05:32HPI/Events of Note Case discussed with RN. 74 year old F admitted with acute appendicitis. Went for ex-lap/appene dectomy/washout/GERMAN, wound is open. Treated with fluids and abx. Extubated and hypotensive and with active pain treated with morphine WIRE BENDER HAND. Surgey notified of hypotension and has given fluids. 8 6 99%wound open and GERMAN with minimal drainagealb 2.8Recs include: hemodynamic monitoring, consider e cho when available, trial of albumin, may need pressors if becomes hypotensive, supplemental O2 PRN, GI and DVT prophylaxis, abx, follow cultures, monitor wound and GERMAN, surgery following, follow CBC an d coags, trend LA and Cr, follow I+Os, replace lytes as needed, glycemic monitoring, pain control.Int erventions Minor-Communication with other healthcare providers and/or family
[2019-08-30] MEDS ORDERED: Albumin 5% 250 ML IV SCH (05:45)
[2019-08-30] MEDS: metroNIDAZOLE/Normal Saline 500 MG in Premix Bag 1 BAG IV SCH ×4 (05:54→23:59)
[2019-08-30] MEDS ORDERED: Albumin 5% 250 ML IV ONE (06:15)
--- NOTE | 2019-08-30 07:38 | PCM.SN.2 ---
- Free Text/Narrative Note: Increasing hypotension through the night. Albumin and Levophed started within the last two hours via eICU. Pt lethargic, pain moderately controlled. CXR., CMP, Mag, and Phos pending. Will re-evaluate later this AM. Arterial Line and CVL may be helpful.
--- NOTE | 2019-08-30 07:43 | PN ---
THC Physician - Brief Progress [id number]/20/2020 06:38[facility] [place], [place] - [facility] - ADELE CERDADate of Service 08/30/2019 06:38HPI/Events of Note Discussed with RN: Pt hypotensive to the 70s despite crystalloid/colloid fluids.Will add levo f or improved hemodynamic support.Interventions Minor-Communication with other healthcare providers and /or family
[2019-08-30 07:51] LABS: CARBON DIOXIDE,CO2 23.3 mmol/L (21.0-32.0); POTASSIUM,K 3.5 mmol/L (3.5-5.1)
--- NOTE | 2019-08-30 08:09 | CR ---
Chest: Portable view of the chest was obtained. Comparison: No prior chest imaging is available. Increased density is identified within the right and left lung bases which are most likely due to atelectasis. Hiatal hernia is noted behind the left side of the heart. Lungs otherwise are clear. Heart size and mediastinum are within normal limits for portable technique. Impression: 1. Mild bibasilar atelectasis. Hiatal hernia is noted. 2. Nothing acute is otherwise is seen on portable chest x-ray. Diagnostic code #2 This report was dictated in MDT
--- NOTE | 2019-08-30 08:49 | PCM.SURGPN ---
- General Info Date of Service: 08/30/19 Date of Surgery/Procedure: 08/29/19 POD#: 1 Post-Op Diagnosis: Ruptured appendicitis w/ abscess Admission Diagnosis/Problem: Acute appendicitis with appendiceal abscess Functional Status: Reports: Pain Controlled, Tolerating Diet, Ambulating, Urinating (russell catheter), Incentive Spirometry. Denies: New Symptoms - Review of Systems General: Reports: Weakness, Fatigue, Malaise, Appetite. Denies: Fever, Chills, Night Sweats HEENT: Reports: No Symptoms Pulmonary: Denies: Shortness of Breath, Pleuritic Chest Pain, Cough Cardiovascular: Denies: Chest Pain, Palpitations Gastrointestinal: Reports: Abdominal Pain (incisional), Flatus. Denies: Diarrhea, Difficulty Swallowing, Nausea, Vomiting Genitourinary: Reports: Other (Russell) Musculoskeletal: Reports: No Symptoms Skin: Denies: Cyanosis, Jaundice, Mottled, Pallor, Diaphoresis Neurological: Denies: Confusion, Dizziness, Headache Psychiatric: Denies: Confusion, Depression, Mood Lability, Anxiety - Patient Data Vitals - Most Recent: Last Vital Signs Temp 97.6 F 08/30/19 08:00 Pulse 90 08/30/19 07:00 Resp 20 08/30/19 08:00 BP 89/38 L 08/30/19 08:00 Pulse Ox 93 L 08/30/19 08:00 Weight - Most Recent: 192 lb 10.944 oz I&O - Last 24 Hours: Intake & Output 08/29/19 08/30/19 08/30/19 19:59 03:59 11:59 Intake Total 1500 Output Total 350 210 Balance 1150 -210 Lab Results Last 24 Hrs: Laboratory Results - last 24 hr 08/29/19 08/29/19 08/29/19 Range/Units 18:05 18:10 18:10 WBC 15.25 H (4.0-11.0) K/uL RBC 4.64 (4.30-5.90) M/uL Hgb 12.5 (12.0-16.0) g/dL Hct 37.1 (36.0-46.0) % MCV 80.0 (80.0-98.0) fL MCH 26.9 L (27.0-32.0) pg MCHC 33.7 (31.0-37.0) g/dL RDW Std Deviation 44.4 (28.0-62.0) fl RDW Coeff of Gibran 15 (11.0-15.0) % Plt Count 397 (150-400) K/uL MPV 10.00 (7.40-12.00) fL Neut % (Auto) 81.4 H (48.0-80.0) % Lymph % (Auto) 9.0 L (16.0-40.0) % [place] % (Auto) 9.4 (0.0-15.0) % Eos % (Auto) 0.1 (0.0-7.0) % Baso % (Auto) 0.1 (0.0-1.5) % Neut # (Auto) 12.4 H (1.4-5.7) K/uL Lymph # (Auto) 1.4 (0.6-2.4) K/uL [place] # (Auto) 1.4 H (0.0-0.8) K/uL Eos # (Auto) 0.0 (0.0-0.7) K/uL Baso # (Auto) 0.0 (0.0-0.1) K/uL Neutrophils % (Manual) (48.0-80.0) % Band Neutrophils % % Lymphocytes % (Manual) (16.0-40.0) % Monocytes % (Manual) (0.0-15.0) % Metamyelocytes % % Nucleated RBC % 0.0 /100WBC Absolute Seg Neuts (1.4-5.7) Band Neutrophils # Lymphocytes # (Manual) (0.6-2.4) Monocytes # (Manual) (0.0-0.8) Absolute Metamyelocyte Nucleated RBCs # 0 K/uL INR Lactate (0.20-2.00) mmol/L Sodium 130 L (136-145) mmol/L Potassium 3.7 (3.5-5.1) mmol/L Chloride 92 L (98-107) mmol/L Carbon Dioxide 23.5 (21.0-32.0) mmol/L BUN 58 H (7.0-18.0) mg/dL Creatinine 1.3 H (0.6-1.0) mg/dL Est Cr Clr Drug Dosing 30.48 mL/min Estimated GFR (MDRD) 40.2 ml/min Glucose 126 H (74-106) mg/dL Calcium 9.3 (8.5-10.1) mg/dL Phosphorus (2.6-4.7) mg/dL Magnesium (1.8-2.4) mg/dL Total Bilirubin 0.6 (0.2-1.0) mg/dL AST 25 (15-37) IU/L ALT 18 (14-63) IU/L Alkaline Phosphatase 91 (46-116) U/L Troponin I (0.000-0.056) ng/mL Total Protein 8.5 H (6.4-8.2) g/dL Albumin 2.8 L (3.4-5.0) g/dL Globulin 5.7 H (2.6-4.0) g/dL Albumin/Globulin Ratio 0.5 L (0.9-1.6) Urine Color YELLOW Urine Appearance SLT CLOUDY Urine pH 6.0 (5.0-8.0) Ur Specific [place] 1.025 (1.001-1.035) Urine Protein 100 H (NEGATIVE) mg/dL Urine Glucose (UA) NEGATIVE (NEGATIVE) mg/dL Urine Ketones TRACE H (NEGATIVE) mg/dL Urine Occult Blood SMALL H (NEGATIVE) Urine Nitrite NEGATIVE (NEGATIVE) Urine Bilirubin MODERATE H (NEGATIVE) Urine Ictotest [employer] Urine Urobilinogen 1.0 (<2.0) EU/dL Ur Leukocyte Esterase SMALL H (NEGATIVE) U Hyaline Cast (Auto) [employer] Urine RBC 1-2 (0-2/HPF) Urine WBC 3-6 (0-5/HPF) Ur Epithelial Cells FEW (NONE-FEW) Ur Squamous Epith Cells [employer] Ur Renal Epithelial Cell [employer] Calcium Oxalate Crystal [employer] Uric Acid Crystals [employer] Triple Phos Crystals [employer] Other Crystals [employer] Amorphous Sediment FEW (NEGATIVE) Urine Bacteria 2+ H (NEGATIVE) Fine Granular Casts [employer] Coarse Granular Casts [employer] Waxy Casts [employer] RBC Casts [employer] WBC Casts [employer] Urine Mucus FEW (NONE-MOD) Urine Other [employer] Urine Trichomonas [employer] Urine Yeast [employer] Urine Sperm [employer] Ur Oval Fat Bodies [employer] Urinalysis Comment [employer] SARS-CoV-2 RNA (RT-PCR) (NEGATIVE) 08/29/19 08/29/19 08/29/19 Range/Units 18:10 19:40 19:40 WBC (4.0-11.0) K/uL RBC (4.30-5.90) M/uL Hgb (12.0-16.0) g/dL Hct (36.0-46.0) % MCV (80.0-98.0) fL MCH (27.0-32.0) pg MCHC (31.0-37.0) g/dL RDW Std Deviation (28.0-62.0) fl RDW Coeff of Gibran (11.0-15.0) % Plt Count (150-400) K/uL MPV (7.40-12.00) fL Neut % (Auto) (48.0-80.0) % Lymph % (Auto) (16.0-40.0) % [place] % (Auto) (0.0-15.0) % Eos % (Auto) (0.0-7.0) % Baso % (Auto) (0.0-1.5) % Neut # (Auto) (1.4-5.7) K/uL Lymph # (Auto) (0.6-2.4) K/uL [place] # (Auto) (0.0-0.8) K/uL Eos # (Auto) (0.0-0.7) K/uL Baso # (Auto) (0.0-0.1) K/uL Neutrophils % (Manual) (48.0-80.0) % Band Neutrophils % % Lymphocytes % (Manual) (16.0-40.0) % Monocytes % (Manual) (0.0-15.0) % Metamyelocytes % % Nucleated RBC % /100WBC Absolute Seg Neuts (1.4-5.7) Band Neutrophils # Lymphocytes # (Manual) (0.6-2.4) Monocytes # (Manual) (0.0-0.8) Absolute Metamyelocyte Nucleated RBCs # K/uL INR 1.04 Lactate 1.0 (0.20-2.00) mmol/L Sodium (136-145) mmol/L Potassium (3.5-5.1) mmol/L Chloride (98-107) mmol/L Carbon Dioxide (21.0-32.0) mmol/L BUN (7.0-18.0) mg/dL Creatinine (0.6-1.0) mg/dL Est Cr Clr Drug Dosing mL/min Estimated GFR (MDRD) ml/min Glucose (74-106) mg/dL Calcium (8.5-10.1) mg/dL Phosphorus (2.6-4.7) mg/dL Magnesium (1.8-2.4) mg/dL Total Bilirubin (0.2-1.0) mg/dL AST (15-37) IU/L ALT (14-63) IU/L Alkaline Phosphatase (46-116) U/L Troponin I < 0.050 (0.000-0.056) ng/mL Total Protein (6.4-8.2) g/dL Albumin (3.4-5.0) g/dL Globulin (2.6-4.0) g/dL Albumin/Globulin Ratio (0.9-1.6) Urine Color Urine Appearance Urine pH (5.0-8.0) Ur Specific [place] (1.001-1.035) Urine Protein (NEGATIVE) mg/dL Urine Glucose (UA) (NEGATIVE) mg/dL Urine Ketones (NEGATIVE) mg/dL Urine Occult Blood (NEGATIVE) Urine Nitrite (NEGATIVE) Urine Bilirubin (NEGATIVE) Urine Ictotest Urine Urobilinogen (<2.0) EU/dL Ur Leukocyte Esterase (NEGATIVE) U Hyaline Cast (Auto) Urine RBC (0-2/HPF) Urine WBC (0-5/HPF) Ur Epithelial Cells (NONE-FEW) Ur Squamous Epith Cells Ur Renal Epithelial Cell Calcium Oxalate Crystal Uric Acid Crystals Triple Phos Crystals Other Crystals Amorphous Sediment (NEGATIVE) Urine Bacteria (NEGATIVE) Fine Granular Casts Coarse Granular Casts Waxy Casts RBC Casts WBC Casts Urine Mucus (NONE-MOD) Urine Other Urine Trichomonas Urine Yeast Urine Sperm Ur Oval Fat Bodies Urinalysis Comment SARS-CoV-2 RNA (RT-PCR) (NEGATIVE) 08/29/19 08/30/19 08/30/19 Range/Units 20:35 05:22 06:28 WBC 3.31 L (4.0-11.0) K/uL RBC 3.83 L (4.30-5.90) M/uL Hgb 10.4 L (12.0-16.0) g/dL Hct 31.2 L (36.0-46.0) % MCV 81.5 (80.0-98.0) fL MCH 27.2 (27.0-32.0) pg MCHC 33.3 (31.0-37.0) g/dL RDW Std Deviation 45.6 (28.0-62.0) fl RDW Coeff of [place] 15 (11.0-15.0) % Plt Count 293 (150-400) K/uL MPV 9.60 (7.40-12.00) fL Neut % (Auto) (48.0-80.0) % Lymph % (Auto) (16.0-40.0) % [place] % (Auto) (0.0-15.0) % Eos % (Auto) (0.0-7.0) % Baso % (Auto) (0.0-1.5) % Neut # (Auto) (1.4-5.7) K/uL Lymph # (Auto) (0.6-2.4) K/uL [place] # (Auto) (0.0-0.8) K/uL Eos # (Auto) (0.0-0.7) K/uL Baso # (Auto) (0.0-0.1) K/uL Neutrophils % (Manual) 40 L (48.0-80.0) % Band Neutrophils % 21 % Lymphocytes % (Manual) 26 (16.0-40.0) % Monocytes % (Manual) 10 (0.0-15.0) % Metamyelocytes % 3 % Nucleated RBC % 0.0 /100WBC Absolute Seg Neuts 1.3 L (1.4-5.7) Band Neutrophils # 0.7 Lymphocytes # (Manual) 0.9 (0.6-2.4) Monocytes # (Manual) 0.3 (0.0-0.8) Absolute Metamyelocyte 0.1 Nucleated RBCs # K/uL INR Lactate 1.4 (0.20-2.00) mmol/L Sodium (136-145) mmol/L Potassium (3.5-5.1) mmol/L Chloride (98-107) mmol/L Carbon Dioxide (21.0-32.0) mmol/L BUN (7.0-18.0) mg/dL Creatinine (0.6-1.0) mg/dL Est Cr Clr Drug Dosing mL/min Estimated GFR (MDRD) ml/min Glucose (74-106) mg/dL Calcium (8.5-10.1) mg/dL Phosphorus (2.6-4.7) mg/dL Magnesium (1.8-2.4) mg/dL Total Bilirubin (0.2-1.0) mg/dL AST (15-37) IU/L ALT (14-63) IU/L Alkaline Phosphatase (46-116) U/L Troponin I (0.000-0.056) ng/mL Total Protein (6.4-8.2) g/dL Albumin (3.4-5.0) g/dL Globulin (2.6-4.0) g/dL Albumin/Globulin Ratio (0.9-1.6) Urine Color Urine Appearance Urine pH (5.0-8.0) Ur Specific [place] (1.001-1.035) Urine Protein (NEGATIVE) mg/dL Urine Glucose (UA) (NEGATIVE) mg/dL Urine Ketones (NEGATIVE) mg/dL Urine Occult Blood (NEGATIVE) Urine Nitrite (NEGATIVE) Urine Bilirubin (NEGATIVE) Urine Ictotest Urine Urobilinogen (<2.0) EU/dL Ur Leukocyte Esterase (NEGATIVE) U Hyaline Cast (Auto) Urine RBC (0-2/HPF) Urine WBC (0-5/HPF) Ur Epithelial Cells (NONE-FEW) Ur Squamous Epith Cells Ur Renal Epithelial Cell Calcium Oxalate Crystal Uric Acid Crystals Triple Phos Crystals Other Crystals Amorphous Sediment (NEGATIVE) Urine Bacteria (NEGATIVE) Fine Granular Casts Coarse Granular Casts Waxy Casts RBC Casts WBC Casts Urine Mucus (NONE-MOD) Urine Other Urine Trichomonas Urine Yeast Urine Sperm Ur Oval Fat Bodies Urinalysis Comment SARS-CoV-2 RNA (RT-PCR) NEGATIVE (NEGATIVE) 08/30/19 Range/Units 06:28 WBC (4.0-11.0) K/uL RBC (4.30-5.90) M/uL Hgb (12.0-16.0) g/dL Hct (36.0-46.0) % MCV (80.0-98.0) fL MCH (27.0-32.0) pg MCHC (31.0-37.0) g/dL RDW Std Deviation (28.0-62.0) fl RDW Coeff of Gibran (11.0-15.0) % Plt Count (150-400) K/uL MPV (7.40-12.00) fL Neut % (Auto) (48.0-80.0) % Lymph % (Auto) (16.0-40.0) % [place] % (Auto) (0.0-15.0) % Eos % (Auto) (0.0-7.0) % Baso % (Auto) (0.0-1.5) % Neut # (Auto) (1.4-5.7) K/uL Lymph # (Auto) (0.6-2.4) K/uL [place] # (Auto) (0.0-0.8) K/uL Eos # (Auto) (0.0-0.7) K/uL Baso # (Auto) (0.0-0.1) K/uL Neutrophils % (Manual) (48.0-80.0) % Band Neutrophils % % Lymphocytes % (Manual) (16.0-40.0) % Monocytes % (Manual) (0.0-15.0) % Metamyelocytes % % Nucleated RBC % /100WBC Absolute Seg Neuts (1.4-5.7) Band Neutrophils # Lymphocytes # (Manual) (0.6-2.4) Monocytes # (Manual) (0.0-0.8) Absolute Metamyelocyte Nucleated RBCs # K/uL INR Lactate (0.20-2.00) mmol/L Sodium 135 L (136-145) mmol/L Potassium 3.5 (3.5-5.1) mmol/L Chloride 102 (98-107) mmol/L Carbon Dioxide 23.3 (21.0-32.0) mmol/L BUN 40 H (7.0-18.0) mg/dL Creatinine 1.3 H (0.6-1.0) mg/dL Est Cr Clr Drug Dosing 30.48 mL/min Estimated GFR (MDRD) 40.2 ml/min Glucose 127 H (74-106) mg/dL Calcium 7.6 L (8.5-10.1) mg/dL Phosphorus 5.2 H (2.6-4.7) mg/dL Magnesium 1.6 L (1.8-2.4) mg/dL Total Bilirubin 1.0 (0.2-1.0) mg/dL AST 26 (15-37) IU/L ALT 18 (14-63) IU/L Alkaline Phosphatase 53 (46-116) U/L Troponin I (0.000-0.056) ng/mL Total Protein 5.5 L (6.4-8.2) g/dL Albumin 1.7 L (3.4-5.0) g/dL Globulin 3.8 (2.6-4.0) g/dL Albumin/Globulin Ratio 0.5 L (0.9-1.6) Urine Color Urine Appearance Urine pH (5.0-8.0) Ur Specific [place] (1.001-1.035) Urine Protein (NEGATIVE) mg/dL Urine Glucose (UA) (NEGATIVE) mg/dL Urine Ketones (NEGATIVE) mg/dL Urine Occult Blood (NEGATIVE) Urine Nitrite (NEGATIVE) Urine Bilirubin (NEGATIVE) Urine Ictotest Urine Urobilinogen (<2.0) EU/dL Ur Leukocyte Esterase (NEGATIVE) U Hyaline Cast (Auto) Urine RBC (0-2/HPF) Urine WBC (0-5/HPF) Ur Epithelial Cells (NONE-FEW) Ur Squamous Epith Cells Ur Renal Epithelial Cell Calcium Oxalate Crystal Uric Acid Crystals Triple Phos Crystals Other Crystals Amorphous Sediment (NEGATIVE) Urine Bacteria (NEGATIVE) Fine Granular Casts Coarse Granular Casts Waxy Casts RBC Casts WBC Casts Urine Mucus (NONE-MOD) Urine Other Urine Trichomonas Urine Yeast Urine Sperm Ur Oval Fat Bodies Urinalysis Comment SARS-CoV-2 RNA (RT-PCR) (NEGATIVE) Med Orders - Current: Current Medications Acetaminophen (Tylenol) 325 mg PO Q4H PRN PRN Reason: Fever Greater Than 101 Hydrocodone Bitart/Acetaminophen ([place] 325-5 Mg) 1 - 2 tab PO Q4H PRN PRN Reason: Pain (moderate 4-6) Diphenhydramine HCl (Benadryl) 25 mg IVPUSH Q6H PRN PRN Reason: Itching Diphenhydramine HCl (Benadryl) 25 mg PO Q6H PRN PRN Reason: Itching Enoxaparin Sodium (Lovenox) 85 mg 1 mg/kg (85 mg) SUBCUT DAILY [facility] Fentanyl (Sublimaze) 50 mcg IVPUSH Q5M PRN PRN Reason: Pain Lactated Ringer's (Ringers, Lactated) 1,000 mls @ 125 mls/hr IV ASDIRECTED [facility] Last Admin: 08/30/19 08:33 Dose: 175 mls/hr Piperacillin Sod/Tazobactam (Sod 3.375 gm/ Sodium Chloride) 50 mls @ 100 mls/ hr IV Q6H [facility] Last Admin: 08/30/19 07:09 Dose: 100 mls/hr Metronidazole 500 mg/ Premix 100 mls @ 100 mls/hr IV QID [facility] Last Admin: 08/30/19 05:54 Dose: 100 mls/hr Lactated Ringer's (Ringers, Lactated) 1,000 mls @ 999 mls/hr IV BOLUS [facility] Last Admin: 08/30/19 04:06 Dose: 999 mls/hr Norepinephrine Bitartrate (Norepinephr-0.9% Nacl 4 Mg/250) 4 mg in 250 mls @ 7.5 mls/hr IV TITRATE [facility]; Protocol Last Titration: 08/30/19 08:14 Dose: 3 mcg/min, 11.25 mls/hr Levothyroxine Sodium (Synthroid) 88 mcg PO ACBREAKFAST [facility] Metoclopramide HCl (Reglan) 10 mg IV Q6H [facility] Last Admin: 08/30/19 06:02 Dose: 10 mg Morphine Sulfate (Morphine Arm Rest Builder 30 Mg In 30 Ml) 0 mg IV ASDIRECTED [facility]; Protocol Last Admin: 08/30/19 01:35 Dose: 30 mg Naloxone HCl (Narcan) 0.04 mg IVPUSH Q3M PRN PRN Reason: Respiratory Depression Ondansetron HCl (Zofran) 4 mg IVPUSH Q6H PRN PRN Reason: Nausea/Vomiting Sertraline HCl (Zoloft) 100 mg PO DAILY [facility] Sodium Chloride (Saline Flush) 10 ml FLUSH ASDIRECTED PRN PRN Reason: Keep Vein Open Sodium Chloride (Saline Flush) 2.5 ml FLUSH ASDIRECTED PRN PRN Reason: Keep Vein Open Discontinued Medications Bupivacaine HCl (Marcaine 0.5%) Confirm Administered Dose 30 ml .ROUTE .STK-MED ONE Stop: 08/29/19 21:11 Cefazolin Sodium (Ancef) Confirm Administered Dose 1 gm .ROUTE .STK-MED ONE Stop: 08/29/19 21:11 Cefazolin Sodium (Ancef) Confirm Administered Dose 1 gm .ROUTE .STK-MED ONE Stop: 08/29/19 22:47 Fentanyl (Sublimaze) Confirm Administered Dose 250 mcg .ROUTE .STK-MED ONE Stop: 08/29/19 21:09 Fentanyl (Sublimaze) Confirm Administered Dose 250 mcg .ROUTE .STK-MED ONE Stop: 08/29/19 22:53 Glycopyrrolate (Robinul) Confirm Administered Dose 0.2 mg .ROUTE .STK-MED ONE Stop: 08/29/19 21:10 Sodium Chloride (Normal Saline) 1,000 mls @ 1,000 mls/hr IV .Bolus ONE Stop: 08/29/19 19:49 Last Admin: 08/29/19 18:57 Dose: 1,000 mls/hr Piperacillin Sod/Tazobactam (Sod 3.375 gm/ Sodium Chloride) 50 mls @ 100 mls/ hr IV ONETIME ONE Stop: 08/29/19 19:25 Last Admin: 08/29/19 19:04 Dose: 100 mls/hr Lactated Ringer's (Ringers, Lactated) 1,000 mls @ 125 mls/hr IV ASDIRECTED [facility] Last Admin: 08/29/19 21:07 Dose: 125 mls/hr Acetaminophen 1,000 mg/ Premix 100 mls @ 400 mls/hr IV Q6H PRN PRN Reason: Pain Metronidazole 500 mg/ Premix 100 mls @ 100 mls/hr IV ONETIME ONE Stop: 08/30/19 00:21 Last Admin: 08/30/19 01:08 Dose: Not Given Metronidazole 500 mg/ Premix 100 mls @ 100 mls/hr IV ONETIME ONE Stop: 08/30/19 00:24 Metronidazole (Flagyl 500 Mg In Ns 100 Ml) Confirm Administered Dose 200 mls @ as directed .ROUTE .STK-MED ONE Stop: 08/29/19 23:26 Last Admin: 08/30/19 01:08 Dose: Not Given Acetaminophen (Ofirmev) Confirm Administered Dose 100 mls @ as directed .ROUTE .STK-MED ONE Stop: 08/30/19 00:25 Albumin Human (Buminate 5%) 250 mls @ 500 mls/hr IV ASDIRECTED [facility] Albumin Human (Buminate 5%) 250 mls @ 500 mls/hr IV ONETIME ONE Stop: 08/30/19 06:44 Last Admin: 08/30/19 06:18 Dose: 500 mls/hr Iopamidol (Isovue-370 (76%)) 100 ml IVPUSH ONETIME STA Stop: 08/29/19 19:44 Last Admin: 08/29/19 19:44 Dose: 100 ml Ketorolac Tromethamine (Toradol) Confirm Administered Dose 30 mg .ROUTE .STK- MED ONE Stop: 08/29/19 21:10 Lidocaine (Xylocaine-Mpf 2%) Confirm Administered Dose 5 ml .ROUTE .STK-MED ONE Stop: 08/29/19 21:10 Midazolam HCl (Versed 1 Mg/Ml) Confirm Administered Dose 2 mg .ROUTE .STK-MED ONE Stop: 08/29/19 21:09 Morphine Sulfate (Morphine) 6 mg IVPUSH ONETIME ONE Stop: 08/29/19 18:13 Last Admin: 08/29/19 18:23 Dose: 6 mg Ondansetron HCl (Zofran) 4 mg IVPUSH ONETIME ONE Stop: 08/29/19 18:13 Last Admin: 08/29/19 18:21 Dose: 4 mg Ondansetron HCl (Zofran) Confirm Administered Dose 4 mg .ROUTE .STK-MED ONE Stop: 08/29/19 21:10 Ondansetron HCl (Zofran) 4 mg IVPUSH Q6H PRN PRN Reason: Nausea/Vomiting Propofol (Diprivan 20 Ml) Confirm Administered Dose 200 mg .ROUTE .STK-MED ONE Stop: 08/29/19 21:09 Rocuronium [place] (Zemuron) Confirm Administered Dose 100 mg .ROUTE .STK-MED ONE Stop: 08/29/19 21:10 Sugammadex Sodium ([place]) Confirm Administered Dose 200 mg .ROUTE .STK-MED ONE Stop: 08/29/19 22:12 - Exam Wound/Incisions: Drainage (wound packed open, Scott drain) Quality Assessment: Supplemental Oxygen, Urine Catheter, DVT Prophylaxis General: Alert, Oriented, Cooperative, Mild Distress HEENT: Pupils Equal, Pupils Reactive. No: Scleral Icterus Neck: Supple Lungs: Clear to Auscultation, Normal Respiratory Effort. No: Rales, Wheezing Cardiovascular: Regular Rate, Regular Rhythm. No: Tachycardia, Murmurs GI/Abdominal Exam: Soft, No Distention, Tender, Abnormal Bowel Sounds ( hypoactive). No: Guarding, Rigid, Rebound Extremities: Normal Inspection, Non-Tender. No: Gustavo's Sign Skin: Warm, Dry, Intact Neurological: No New Focal Deficit Psy/Mental Status: Alert, Normal Affect, Normal Mood Sepsis Event Note - Evaluation Sepsis Screening Result: Sepsis Risk - Focused Exam Vital Signs: Vital Signs Temp Pulse Resp BP Pulse Ox 08/30/19 08:00 97.6 F 20 89/38 L 93 L 08/30/19 07:00 96.9 F 90 16 80/36 L 94 L 08/30/19 06:00 96.9 F 89 18 80/35 L 96 08/30/19 05:00 97 F 84 18 76/42 L 94 L 08/30/19 04:40 97 F 88 25 H 80/35 L 93 L 08/30/19 04:22 96.9 F 88 21 H 83/39 L 95 08/30/19 04:00 97.2 F 92 25 H 83/39 L 96 08/30/19 03:42 97 F 90 16 90/42 L 96 08/30/19 03:00 97 F 87 19 79/41 L 95 08/30/19 02:53 94 L 08/30/19 02:30 97.8 F 91 21 H 91/35 L 93 L 08/30/19 02:00 97.8 F 93 29 H 88/34 L 95 08/30/19 01:45 96 24 H 97/31 L 92 L 08/30/19 01:30 97 20 101/36 L 93 L 08/30/19 01:15 97.2 F 97 29 H 95/39 L 92 L 08/30/19 01:00 97.2 F 105 H 26 H 109/48 L 92 L 08/29/19 20:45 98 F 82 18 119/54 L 97 Date Exam was Performed: 08/30/19 Time Exam was Performed: 08:42 - Problem List & Annotations (1) Right lower quadrant abdominal pain SNOMED Code(s): 333201338 Code(s): R10.31 - RIGHT LOWER QUADRANT PAIN Status: Acute Priority: High Current Visit: Yes (2) Loss of appetite SNOMED Code(s): 16228311 Code(s): R63.0 - ANOREXIA Status: Acute Priority: High Current Visit: Yes (3) Appendicitis SNOMED Code(s): 87006032 Code(s): K37 - UNSPECIFIED APPENDICITIS Status: Acute Priority: High Current Visit: Yes Qualifiers: Appendicitis type: acute appendicitis Acute appendicitis type: with generalized peritonitis Appendicitis gangrene presence: without gangrene Appendicitis perforation presence: with perforation Appendicitis abscess presence: with abscess Qualified Code(s): K35.21 - Acute appendicitis with generalized peritonitis, with abscess (4) Hypothyroidism SNOMED Code(s): 84670445 Code(s): E03.9 - HYPOTHYROIDISM, UNSPECIFIED Status: Acute Priority: Low Current Visit: Yes Qualifiers: Hypothyroidism type: unspecified Qualified Code(s): E03.9 - Hypothyroidism , unspecified (5) Depression SNOMED Code(s): 99370639 Code(s): F32.9 - MAJOR DEPRESSIVE DISORDER, SINGLE EPISODE, UNSPECIFIED Status: Acute Priority: Low Current Visit: Yes Qualifiers: Major depression recurrence: unspecified whether recurrent Active/ Remission status: remission status unspecified - Problem List Review Problem List Initiated/Reviewed/Updated: Yes - My Orders Last 24 Hours: Active Orders 24 hr Category Date Time Status Patient Status [ADT] Routine ADT 08/29/19 20:45 Active Patient Status [ADT] Routine ADT 08/30/19 00:21 Active Antiembolic Devices [RC] PER UNIT ROUTINE Care 08/29/19 20:44 Active Communication Order [RC] Q12H Care 08/30/19 00:11 Active Insert Urinary Catheter [OM.PC] Timed Care 08/29/19 20:44 Ordered Notify Provider Consults [RC] ASDIRECTED Care 08/30/19 08:40 Ordered Oxygen Therapy [RC] PRN Care 08/30/19 00:09 Active HOSPITAL CNA Record [RC] Q4H Care 08/30/19 00:11 Active Pulse Oximetry [RC] ASDIRECTED Care 08/30/19 00:09 Active RT Incentive Spirometry [RC] Q1HWA Care 08/30/19 00:09 Active Up ad Mickei [RC] ASDIRECTED Care 08/30/19 08:26 Ordered Up ad Mickie [RC] PER UNIT ROUTINE Care 08/30/19 00:09 Active Urinary Catheter Assessment [RC] Q6H Care 08/29/19 20:44 Active Vital Signs [RC] Q1H Care 08/30/19 00:11 Active Consult to Physician [CONS] Routine Cons 08/30/19 08:39 Ordered Advance Diet Instructions [DIET] Diet 08/31/19 Breakfast Active Nothing Per Oral Diet [DIET] Diet 08/29/19 Dinner Active BASIC METABOLIC PANEL,BMP [CHEM] AM Lab 08/31/19 05:11 Ordered CBC WITH MANUAL DIFF [HEME] AM Lab 08/31/19 05:11 Ordered CULTURE BLOOD [BC] Stat Lab 08/29/19 19:10 Received CULTURE BLOOD [BC] Stat Lab 08/29/19 19:40 Received CULTURE URINE [RM] Stat Lab 08/29/19 18:05 Received Acetaminophen [Tylenol] Med 08/30/19 00:09 Active 325 mg PO Q4H PRN Acetaminophen/HYDROcodone [[place] 325-5 MG] Med 08/30/19 08:27 Ordered 1 - 2 tab PO Q4H PRN Enoxaparin [Lovenox] Med 08/30/19 09:00 Ordered 85 mg SUBCUT DAILY Lactated Ringers [Ringers, Lactated] 1,000 ml Med 08/30/19 00:15 Active IV ASDIRECTED Lactated Ringers [Ringers, Lactated] 1,000 ml Med 08/30/19 03:15 Active IV BOLUS Levothyroxine [Synthroid] Med 08/31/19 07:30 Ordered 88 mcg PO ACBREAKFAST Metoclopramide [Reglan] Med 08/30/19 00:15 Active 10 mg IV Q6H Morphine PF [Morphine HOSPITAL CNA 30 MG in 30 ML] Med 08/30/19 00:15 Active See Protocol IV ASDIRECTED Naloxone [Narcan] Med 08/30/19 00:11 Active 0.04 mg IVPUSH Q3M PRN Norepinephrine Bit/0.9 % NaCl [Norepinephr-0.9% NaCl 4 Med 08/30/19 06:45 Active mg/250] 4 mg in 250 ml IV TITRATE Ondansetron [Zofran] Med 08/30/19 00:09 Active 4 mg IVPUSH Q6H PRN Piperacillin/Tazobactam [Piperacil-Tazobact] 3.375 gm Med 08/30/19 00:15 Active Sodium Chloride 0.9% [Normal Saline] 50 ml IV Q6H Sertraline [Zoloft] Med 08/30/19 09:00 Ordered 100 mg PO DAILY Sodium Chloride 0.9% [Saline Flush] Med 08/29/19 19:28 Active 10 ml FLUSH ASDIRECTED PRN Sodium Chloride 0.9% [Saline Flush] Med 08/29/19 19:28 Active 2.5 ml FLUSH ASDIRECTED PRN diphenhydrAMINE [Benadryl] Med 08/30/19 00:11 Active 25 mg IVPUSH Q6H PRN diphenhydrAMINE [Benadryl] Med 08/30/19 00:11 Active 25 mg PO Q6H PRN fentaNYL [Sublimaze] Med 08/29/19 22:09 Active 50 mcg IVPUSH Q5M PRN metroNIDAZOLE/Normal Saline [Flagyl 500 MG in NS 100 ML Med 08/30/19 06:00 Active ] 500 mg Premix Bag 1 bag IV QID Antiembolic Hose [OM.PC] Routine Oth 08/29/19 20:44 Ordered Blood Culture x2 Reflex Set [OM.PC] Stat Oth 08/29/19 19:28 Ordered Pulse Oximetry Continuous Monitoring [OM.PC] Routine Oth 08/30/19 00:11 Ordered Saline Lock Insert [OM.PC] Stat Oth 08/29/19 19:28 Ordered Resuscitation Status Routine Resus Stat 08/29/19 20:44 Ordered Medication Orders Acetaminophen (Tylenol) 325 mg PO Q4H PRN PRN Reason: Fever Greater Than 101 Hydrocodone Bitart/Acetaminophen ([place] 325-5 Mg) 1 - 2 tab PO Q4H PRN PRN Reason: Pain (moderate 4-6) Diphenhydramine HCl (Benadryl) 25 mg IVPUSH Q6H PRN PRN Reason: Itching Diphenhydramine HCl (Benadryl) 25 mg PO Q6H PRN PRN Reason: Itching Enoxaparin Sodium (Lovenox) 85 mg 1 mg/kg (85 mg) SUBCUT DAILY [facility] Fentanyl (Sublimaze) 50 mcg IVPUSH Q5M PRN PRN Reason: Pain Lactated Ringer's (Ringers, Lactated) 1,000 mls @ 125 mls/hr IV ASDIRECTED [facility] Last Admin: 08/30/19 08:33 Dose: 175 mls/hr Infusion: 08/30/19 08:18 Dose: 175 mls/hr Infusion: 08/30/19 04:50 Dose: 175 mls/hr Admin: 08/30/19 01:40 Dose: 125 mls/hr Piperacillin Sod/Tazobactam (Sod 3.375 gm/ Sodium Chloride) 50 mls @ 100 mls/ hr IV Q6H [facility] Last Admin: 08/30/19 07:09 Dose: 100 mls/hr Infusion: 08/30/19 02:26 Dose: 100 mls/hr Admin: 08/30/19 01:56 Dose: 100 mls/hr Metronidazole 500 mg/ Premix 100 mls @ 100 mls/hr IV QID [facility] Last Admin: 08/30/19 05:54 Dose: 100 mls/hr Lactated Ringer's (Ringers, Lactated) 1,000 mls @ 999 mls/hr IV BOLUS [facility] Last Admin: 08/30/19 04:06 Dose: 999 mls/hr Infusion: 08/30/19 04:06 Dose: 999 mls/hr Admin: 08/30/19 03:39 Dose: 999 mls/hr Norepinephrine Bitartrate (Norepinephr-0.9% Nacl 4 Mg/250) 4 mg in 250 mls @ 7.5 mls/hr IV TITRATE [facility]; Protocol Last Titration: 08/30/19 08:14 Dose: 3 mcg/min, 11.25 mls/hr Admin: 08/30/19 06:57 Dose: 2 mcg/min, 7.5 mls/hr Levothyroxine Sodium (Synthroid) 88 mcg PO ACBREAKFAST [facility] Metoclopramide HCl (Reglan) 10 mg IV Q6H [facility] Last Admin: 08/30/19 06:02 Dose: 10 mg Admin: 08/30/19 01:38 Dose: 10 mg Morphine Sulfate (Morphine Arm Rest Builder 30 Mg In 30 Ml) 0 mg IV ASDIRECTED [facility]; Protocol Last Admin: 08/30/19 01:35 Dose: 30 mg Naloxone HCl (Narcan) 0.04 mg IVPUSH Q3M PRN PRN Reason: Respiratory Depression Ondansetron HCl (Zofran) 4 mg IVPUSH Q6H PRN PRN Reason: Nausea/Vomiting Sertraline HCl (Zoloft) 100 mg PO DAILY [facility] Sodium Chloride (Saline Flush) 10 ml FLUSH ASDIRECTED PRN PRN Reason: Keep Vein Open Sodium Chloride (Saline Flush) 2.5 ml FLUSH ASDIRECTED PRN PRN Reason: Keep Vein Open - Assessment Assessment (Free Text/Narrative):: Patient is stable today. BP is in the high 80's which she says is normal for her. She is on a Levophed drip to help support hemodynamics. UO improving. Note WBC 3K with 21% bands. Plt normal. Hb 10Gms--dilutional. Blade drain showing serosanguineous drainage, no purulence. - Plan Plan (Free Text/Narrative):: Continue Levophed. Hospitalist Consult. Start Enoxeparin. Up in chair and ambulate. Clear liquid diet. Labs in am.
--- NOTE | 2019-08-30 08:58 | PCM.CONS ---
H&P History of Present Illness - General Date of Service: 08/30/19 Admit Problem/Dx: Admission Diagnosis/Problem Admission Diagnosis/Problem Acute appendicitis Source of Information: Patient, Old Records History Limitations: Reports: No Limitations - History of Present Illness Initial Comments - Free Text/Narative: This 74 year old female with pmh of hypothyroidism presented to the ED last evening with complaints of RLQ pain, which had been there for several days. She was taken to the OR by Dr Cavazos for appendicitis and subsequently found to have ruptured appendix with intra-abdominal abscess. She was transitioned to ICU on Levophed drip due to sepsis. Hospitalist service consulted for medical management. Kayley is alert and oriented this morning, reports abdominal pain. No chest pain or SOB. Sleepy from pain medications. Otherwise she feels ok. Reports her BP are normally runs lower. Though review of records show BP usualy 120-130/80. No history of heart disease, COPD or DM. rlq Pain Score (Numeric/FACES): 5 - Related Data Allergies/Adverse Reactions: Allergies Allergy/AdvReac Type Severity Reaction Status Date / Time No Known Allergies Allergy Verified 08/29/19 18:09 Home Medications: Home Meds Levothyroxine [Synthroid] 08/30/19 [History] Omeprazole 08/30/19 [History] Oxybutynin 08/30/19 [History] Sertraline HCl 08/30/19 [History] Past Medical History Cardiovascular History: Reports: None. Denies: Afib, Blood Clots/VTE/DVT, CAD, High Cholesterol, [place] Respiratory History: Reports: None. 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 Denies: Fever, Chills HEENT: Reports: No Symptoms. Denies: Headaches, Sinus Congestion Pulmonary: Reports: No Symptoms. Denies: Shortness of Breath Cardiovascular: Reports: No Symptoms. Denies: Chest Pain, Orthopnea, Edema Gastrointestinal: Reports: Abdominal Pain, Nausea. Denies: Black Stool, Bloody Stool, Vomiting Genitourinary: Reports: No Symptoms. Denies: Dysuria, Frequency, Burning Musculoskeletal: Reports: No Symptoms. Denies: Back Pain Skin: Reports: No Symptoms Neurological: Reports: No Symptoms Hematologic/Lymphatic: Reports: No Symptoms Immunologic: Reports: No Symptoms Exam - Exam Exam: See Below - Vital Signs Vital Signs: Last Vital Signs Temp 97.6 F 08/30/19 08:00 Pulse 90 08/30/19 07:00 Resp 20 08/30/19 08:00 BP 89/38 L 08/30/19 08:00 Pulse Ox 93 L 08/30/19 08:00 Weight: 87.4 kg - Exam General: Alert, Oriented, Cooperative Neck: Supple, Trachea Midline Lungs: Clear to Auscultation, Normal Respiratory Effort Cardiovascular: Regular Rate, Regular Rhythm, Normal S1, Normal S2 GI/Abdominal Exam: Soft, Tender. No: Normal Bowel Sounds (hypoactive) Extremities: Normal Inspection, Normal Range of Motion, Non-Tender, No Pedal Edema Skin: Warm, Dry, Incision (abdominal with GERMAN drain) Neuro Extensive - Mental Status: Alert, Oriented x3 Neuro Extensive - Motor, Sensory, Reflexes: CN II-XII Intact Psychiatric: Alert, Normal Affect, Normal Mood - Patient Data Lab Results Last 24 hrs: Laboratory Results - last 24 hr 08/29/19 08/29/19 08/29/19 Range/Units 18:05 18:10 18:10 WBC 15.25 H (4.0-11.0) K/uL RBC 4.64 (4.30-5.90) M/uL Hgb 12.5 (12.0-16.0) g/dL Hct 37.1 (36.0-46.0) % MCV 80.0 (80.0-98.0) fL MCH 26.9 L (27.0-32.0) pg MCHC 33.7 (31.0-37.0) g/dL RDW Std Deviation 44.4 (28.0-62.0) fl RDW Coeff of Gibran 15 (11.0-15.0) % Plt Count 397 (150-400) K/uL MPV 10.00 (7.40-12.00) fL Neut % (Auto) 81.4 H (48.0-80.0) % Lymph % (Auto) 9.0 L (16.0-40.0) % [place] % (Auto) 9.4 (0.0-15.0) % Eos % (Auto) 0.1 (0.0-7.0) % Baso % (Auto) 0.1 (0.0-1.5) % Neut # (Auto) 12.4 H (1.4-5.7) K/uL Lymph # (Auto) 1.4 (0.6-2.4) K/uL [place] # (Auto) 1.4 H (0.0-0.8) K/uL Eos # (Auto) 0.0 (0.0-0.7) K/uL Baso # (Auto) 0.0 (0.0-0.1) K/uL Neutrophils % (Manual) (48.0-80.0) % Band Neutrophils % % Lymphocytes % (Manual) (16.0-40.0) % Monocytes % (Manual) (0.0-15.0) % Metamyelocytes % % Nucleated RBC % 0.0 /100WBC Absolute Seg Neuts (1.4-5.7) Band Neutrophils # Lymphocytes # (Manual) (0.6-2.4) Monocytes # (Manual) (0.0-0.8) Absolute Metamyelocyte Nucleated RBCs # 0 K/uL INR Lactate (0.20-2.00) mmol/L Sodium 130 L (136-145) mmol/L Potassium 3.7 (3.5-5.1) mmol/L Chloride 92 L (98-107) mmol/L Carbon Dioxide 23.5 (21.0-32.0) mmol/L BUN 58 H (7.0-18.0) mg/dL Creatinine 1.3 H (0.6-1.0) mg/dL Est Cr Clr Drug Dosing 30.48 mL/min Estimated GFR (MDRD) 40.2 ml/min Glucose 126 H (74-106) mg/dL Calcium 9.3 (8.5-10.1) mg/dL Phosphorus (2.6-4.7) mg/dL Magnesium (1.8-2.4) mg/dL Total Bilirubin 0.6 (0.2-1.0) mg/dL AST 25 (15-37) IU/L ALT 18 (14-63) IU/L Alkaline Phosphatase 91 (46-116) U/L Troponin I (0.000-0.056) ng/mL Total Protein 8.5 H (6.4-8.2) g/dL Albumin 2.8 L (3.4-5.0) g/dL Globulin 5.7 H (2.6-4.0) g/dL Albumin/Globulin Ratio 0.5 L (0.9-1.6) Urine Color YELLOW Urine Appearance SLT CLOUDY Urine pH 6.0 (5.0-8.0) Ur Specific Reading 1.025 (1.001-1.035) Urine Protein 100 H (NEGATIVE) mg/dL Urine Glucose (UA) NEGATIVE (NEGATIVE) mg/dL Urine Ketones TRACE H (NEGATIVE) mg/dL Urine Occult Blood SMALL H (NEGATIVE) Urine Nitrite NEGATIVE (NEGATIVE) Urine Bilirubin MODERATE H (NEGATIVE) Urine Ictotest DRIVER EXAMINER Urine Urobilinogen 1.0 (<2.0) EU/dL Ur Leukocyte Esterase SMALL H (NEGATIVE) U Hyaline Cast (Auto) DRIVER EXAMINER Urine RBC 1-2 (0-2/HPF) Urine WBC 3-6 (0-5/HPF) Ur Epithelial Cells FEW (NONE-FEW) Ur Squamous Epith Cells DRIVER EXAMINER Ur Renal Epithelial Cell DRIVER EXAMINER Calcium Oxalate Crystal DRIVER EXAMINER Uric Acid Crystals DRIVER EXAMINER Triple Phos Crystals DRIVER EXAMINER Other Crystals DRIVER EXAMINER Amorphous Sediment FEW (NEGATIVE) Urine Bacteria 2+ H (NEGATIVE) Fine Granular Casts DRIVER EXAMINER Coarse Granular Casts DRIVER EXAMINER Waxy Casts DRIVER EXAMINER RBC Casts DRIVER EXAMINER WBC Casts DRIVER EXAMINER Urine Mucus FEW (NONE-MOD) Urine Other DRIVER EXAMINER Urine Trichomonas DRIVER EXAMINER Urine Yeast DRIVER EXAMINER Urine Sperm DRIVER EXAMINER Ur Oval Fat Bodies DRIVER EXAMINER Urinalysis Comment DRIVER EXAMINER SARS-CoV-2 RNA (RT-PCR) (NEGATIVE) 08/29/19 08/29/19 08/29/19 Range/Units 18:10 19:40 19:40 WBC (4.0-11.0) K/uL RBC (4.30-5.90) M/uL Hgb (12.0-16.0) g/dL Hct (36.0-46.0) % MCV (80.0-98.0) fL MCH (27.0-32.0) pg MCHC (31.0-37.0) g/dL RDW Std Deviation (28.0-62.0) fl RDW Coeff of Gibran (11.0-15.0) % Plt Count (150-400) K/uL MPV (7.40-12.00) fL Neut % (Auto) (48.0-80.0) % Lymph % (Auto) (16.0-40.0) % [place] % (Auto) (0.0-15.0) % Eos % (Auto) (0.0-7.0) % Baso % (Auto) (0.0-1.5) % Neut # (Auto) (1.4-5.7) K/uL Lymph # (Auto) (0.6-2.4) K/uL [place] # (Auto) (0.0-0.8) K/uL Eos # (Auto) (0.0-0.7) K/uL Baso # (Auto) (0.0-0.1) K/uL Neutrophils % (Manual) (48.0-80.0) % Band Neutrophils % % Lymphocytes % (Manual) (16.0-40.0) % Monocytes % (Manual) (0.0-15.0) % Metamyelocytes % % Nucleated RBC % /100WBC Absolute Seg Neuts (1.4-5.7) Band Neutrophils # Lymphocytes # (Manual) (0.6-2.4) Monocytes # (Manual) (0.0-0.8) Absolute Metamyelocyte Nucleated RBCs # K/uL INR 1.04 Lactate 1.0 (0.20-2.00) mmol/L Sodium (136-145) mmol/L Potassium (3.5-5.1) mmol/L Chloride (98-107) mmol/L Carbon Dioxide (21.0-32.0) mmol/L BUN (7.0-18.0) mg/dL Creatinine (0.6-1.0) mg/dL Est Cr Clr Drug Dosing mL/min Estimated GFR (MDRD) ml/min Glucose (74-106) mg/dL Calcium (8.5-10.1) mg/dL Phosphorus (2.6-4.7) mg/dL Magnesium (1.8-2.4) mg/dL Total Bilirubin (0.2-1.0) mg/dL AST (15-37) IU/L ALT (14-63) IU/L Alkaline Phosphatase (46-116) U/L Troponin I < 0.050 (0.000-0.056) ng/mL Total Protein (6.4-8.2) g/dL Albumin (3.4-5.0) g/dL Globulin (2.6-4.0) g/dL Albumin/Globulin Ratio (0.9-1.6) Urine Color Urine Appearance Urine pH (5.0-8.0) Ur Specific Reading (1.001-1.035) Urine Protein (NEGATIVE) mg/dL Urine Glucose (UA) (NEGATIVE) mg/dL Urine Ketones (NEGATIVE) mg/dL Urine Occult Blood (NEGATIVE) Urine Nitrite (NEGATIVE) Urine Bilirubin (NEGATIVE) Urine Ictotest Urine Urobilinogen (<2.0) EU/dL Ur Leukocyte Esterase (NEGATIVE) U Hyaline Cast (Auto) Urine RBC (0-2/HPF) Urine WBC (0-5/HPF) Ur Epithelial Cells (NONE-FEW) Ur Squamous Epith Cells Ur Renal Epithelial Cell Calcium Oxalate Crystal Uric Acid Crystals Triple Phos Crystals Other Crystals Amorphous Sediment (NEGATIVE) Urine Bacteria (NEGATIVE) Fine Granular Casts Coarse Granular Casts Waxy Casts RBC Casts WBC Casts Urine Mucus (NONE-MOD) Urine Other Urine Trichomonas Urine Yeast Urine Sperm Ur Oval Fat Bodies Urinalysis Comment SARS-CoV-2 RNA (RT-PCR) (NEGATIVE) 08/29/19 08/30/19 08/30/19 Range/Units 20:35 05:22 06:28 WBC 3.31 L (4.0-11.0) K/uL RBC 3.83 L (4.30-5.90) M/uL Hgb 10.4 L (12.0-16.0) g/dL Hct 31.2 L (36.0-46.0) % MCV 81.5 (80.0-98.0) fL MCH 27.2 (27.0-32.0) pg MCHC 33.3 (31.0-37.0) g/dL RDW Std Deviation 45.6 (28.0-62.0) fl RDW Coeff of Gibran 15 (11.0-15.0) % Plt Count 293 (150-400) K/uL MPV 9.60 (7.40-12.00) fL Neut % (Auto) (48.0-80.0) % Lymph % (Auto) (16.0-40.0) % [place] % (Auto) (0.0-15.0) % Eos % (Auto) (0.0-7.0) % Baso % (Auto) (0.0-1.5) % Neut # (Auto) (1.4-5.7) K/uL Lymph # (Auto) (0.6-2.4) K/uL [place] # (Auto) (0.0-0.8) K/uL Eos # (Auto) (0.0-0.7) K/uL Baso # (Auto) (0.0-0.1) K/uL Neutrophils % (Manual) 40 L (48.0-80.0) % Band Neutrophils % 21 % Lymphocytes % (Manual) 26 (16.0-40.0) % Monocytes % (Manual) 10 (0.0-15.0) % Metamyelocytes % 3 % Nucleated RBC % 0.0 /100WBC Absolute Seg Neuts 1.3 L (1.4-5.7) Band Neutrophils # 0.7 Lymphocytes # (Manual) 0.9 (0.6-2.4) Monocytes # (Manual) 0.3 (0.0-0.8) Absolute Metamyelocyte 0.1 Nucleated RBCs # K/uL INR Lactate 1.4 (0.20-2.00) mmol/L Sodium (136-145) mmol/L Potassium (3.5-5.1) mmol/L Chloride (98-107) mmol/L Carbon Dioxide (21.0-32.0) mmol/L BUN (7.0-18.0) mg/dL Creatinine (0.6-1.0) mg/dL Est Cr Clr Drug Dosing mL/min Estimated GFR (MDRD) ml/min Glucose (74-106) mg/dL Calcium (8.5-10.1) mg/dL Phosphorus (2.6-4.7) mg/dL Magnesium (1.8-2.4) mg/dL Total Bilirubin (0.2-1.0) mg/dL AST (15-37) IU/L ALT (14-63) IU/L Alkaline Phosphatase (46-116) U/L Troponin I (0.000-0.056) ng/mL Total Protein (6.4-8.2) g/dL Albumin (3.4-5.0) g/dL Globulin (2.6-4.0) g/dL Albumin/Globulin Ratio (0.9-1.6) Urine Color Urine Appearance Urine pH (5.0-8.0) Ur Specific Reading (1.001-1.035) Urine Protein (NEGATIVE) mg/dL Urine Glucose (UA) (NEGATIVE) mg/dL Urine Ketones (NEGATIVE) mg/dL Urine Occult Blood (NEGATIVE) Urine Nitrite (NEGATIVE) Urine Bilirubin (NEGATIVE) Urine Ictotest Urine Urobilinogen (<2.0) EU/dL Ur Leukocyte Esterase (NEGATIVE) U Hyaline Cast (Auto) Urine RBC (0-2/HPF) Urine WBC (0-5/HPF) Ur Epithelial Cells (NONE-FEW) Ur Squamous Epith Cells Ur Renal Epithelial Cell Calcium Oxalate Crystal Uric Acid Crystals Triple Phos Crystals Other Crystals Amorphous Sediment (NEGATIVE) Urine Bacteria (NEGATIVE) Fine Granular Casts Coarse Granular Casts Waxy Casts RBC Casts WBC Casts Urine Mucus (NONE-MOD) Urine Other Urine Trichomonas Urine Yeast Urine Sperm Ur Oval Fat Bodies Urinalysis Comment SARS-CoV-2 RNA (RT-PCR) NEGATIVE (NEGATIVE) 08/30/19 Range/Units 06:28 WBC (4.0-11.0) K/uL RBC (4.30-5.90) M/uL Hgb (12.0-16.0) g/dL Hct (36.0-46.0) % MCV (80.0-98.0) fL MCH (27.0-32.0) pg MCHC (31.0-37.0) g/dL RDW Std Deviation (28.0-62.0) fl RDW Coeff of Gibran (11.0-15.0) % Plt Count (150-400) K/uL MPV (7.40-12.00) fL Neut % (Auto) (48.0-80.0) % Lymph % (Auto) (16.0-40.0) % [place] % (Auto) (0.0-15.0) % Eos % (Auto) (0.0-7.0) % Baso % (Auto) (0.0-1.5) % Neut # (Auto) (1.4-5.7) K/uL Lymph # (Auto) (0.6-2.4) K/uL [place] # (Auto) (0.0-0.8) K/uL Eos # (Auto) (0.0-0.7) K/uL Baso # (Auto) (0.0-0.1) K/uL Neutrophils % (Manual) (48.0-80.0) % Band Neutrophils % % Lymphocytes % (Manual) (16.0-40.0) % Monocytes % (Manual) (0.0-15.0) % Metamyelocytes % % Nucleated RBC % /100WBC Absolute Seg Neuts (1.4-5.7) Band Neutrophils # Lymphocytes # (Manual) (0.6-2.4) Monocytes # (Manual) (0.0-0.8) Absolute Metamyelocyte Nucleated RBCs # K/uL INR Lactate (0.20-2.00) mmol/L Sodium 135 L (136-145) mmol/L Potassium 3.5 (3.5-5.1) mmol/L Chloride 102 (98-107) mmol/L Carbon Dioxide 23.3 (21.0-32.0) mmol/L BUN 40 H (7.0-18.0) mg/dL Creatinine 1.3 H (0.6-1.0) mg/dL Est Cr Clr Drug Dosing 30.48 mL/min Estimated GFR (MDRD) 40.2 ml/min Glucose 127 H (74-106) mg/dL Calcium 7.6 L (8.5-10.1) mg/dL Phosphorus 5.2 H (2.6-4.7) mg/dL Magnesium 1.6 L (1.8-2.4) mg/dL Total Bilirubin 1.0 (0.2-1.0) mg/dL AST 26 (15-37) IU/L ALT 18 (14-63) IU/L Alkaline Phosphatase 53 (46-116) U/L Troponin I (0.000-0.056) ng/mL Total Protein 5.5 L (6.4-8.2) g/dL Albumin 1.7 L (3.4-5.0) g/dL Globulin 3.8 (2.6-4.0) g/dL Albumin/Globulin Ratio 0.5 L (0.9-1.6) Urine Color Urine Appearance Urine pH (5.0-8.0) Ur Specific Reading (1.001-1.035) Urine Protein (NEGATIVE) mg/dL Urine Glucose (UA) (NEGATIVE) mg/dL Urine Ketones (NEGATIVE) mg/dL Urine Occult Blood (NEGATIVE) Urine Nitrite (NEGATIVE) Urine Bilirubin (NEGATIVE) Urine Ictotest Urine Urobilinogen (<2.0) EU/dL Ur Leukocyte Esterase (NEGATIVE) U Hyaline Cast (Auto) Urine RBC (0-2/HPF) Urine WBC (0-5/HPF) Ur Epithelial Cells (NONE-FEW) Ur Squamous Epith Cells Ur Renal Epithelial Cell Calcium Oxalate Crystal Uric Acid Crystals Triple Phos Crystals Other Crystals Amorphous Sediment (NEGATIVE) Urine Bacteria (NEGATIVE) Fine Granular Casts Coarse Granular Casts Waxy Casts RBC Casts WBC Casts Urine Mucus (NONE-MOD) Urine Other Urine Trichomonas Urine Yeast Urine Sperm Ur Oval Fat Bodies Urinalysis Comment SARS-CoV-2 RNA (RT-PCR) (NEGATIVE) Result Diagrams: 08/30/19 05:22 08/30/19 06:28 Sepsis Event Note - Evaluation Sepsis Screening Result: Sepsis Risk - Focused Exam Vital Signs: Vital Signs Temp Pulse Resp BP Pulse Ox 08/30/19 08:00 97.6 F 20 89/38 L 93 L 08/30/19 07:00 96.9 F 90 16 80/36 L 94 L 08/30/19 06:00 96.9 F 89 18 80/35 L 96 08/30/19 05:00 97 F 84 18 76/42 L 94 L 08/30/19 04:40 97 F 88 25 H 80/35 L 93 L 08/30/19 04:22 96.9 F 88 21 H 83/39 L 95 08/30/19 04:00 97.2 F 92 25 H 83/39 L 96 08/30/19 03:42 97 F 90 16 90/42 L 96 08/30/19 03:00 97 F 87 19 79/41 L 95 08/30/19 02:53 94 L 08/30/19 02:30 97.8 F 91 21 H 91/35 L 93 L 08/30/19 02:00 97.8 F 93 29 H 88/34 L 95 08/30/19 01:45 96 24 H 97/31 L 92 L 08/30/19 01:30 97 20 101/36 L 93 L 08/30/19 01:15 97.2 F 97 29 H 95/39 L 92 L 08/30/19 01:00 97.2 F 105 H 26 H 109/48 L 92 L Date Exam was Performed: 08/30/19 Time Exam was Performed: 13:25 Consult PN Assessment/Plan POD#: 0 Procedures: Procedures ASSAY OF FREE THYROXINE (02/21/16) ASSAY THYROID STIM HORMONE (02/21/16) COMPLETE CBC W/AUTO DIFF WBC (02/21/16) COMPREHEN METABOLIC PANEL (02/21/16) IMMUNIZATION ADMIN (05/24/17) LIPID PANEL (02/21/16) OFFICE/OUTPATIENT VISIT NEW (05/24/17) ROUTINE VENIPUNCTURE (02/21/16) TD VACC NO PRESV 7 YRS+ IM (05/24/17) Problem List Initiated/Reviewed/Updated: Yes Plan: This 74 year old admitted with sepsis, rupture appendicitis with intraabdominal abscess 1. Sepsis, rupture appendicitis with intraabdominal abscess - Continue Norepinephrine gtt, BP stable keep maps 65 or greater. If needing for longer period of time, may need to consider central line. - Continue LR at 175 for now, monitor urine outpatient. - Continue Zosyn and Flagyl, could consider discontinuing Flagyl - BC pending - Monitor closely in ICU, cardiac monitoring - Pain control per surgery, CAPTION WRITER in place currently. pain controlled. 2. CARLOS A - Likely secondary to sepsis, monitor in am - Continue Fluids - Avoid nephrotoxic medications. 3. Hypomagnesemia: - replace and monitor in am. 4. Hypothyroidism - Continue Synthroid VTE prophylaxis: Heparin subcut Treatment plan discussed with Dr Mckay and she is in agreement.
[2019-08-30] MEDS ORDERED: Enoxaparin 100 MG/1 ML Syringe SUBCUT SCH (09:00)
[2019-08-30] MEDS: Heparin Sodium 5,000 Units/ML Vial SUBCUT SCH ×2 (09:42→17:38)
[2019-08-30] MEDS: Sertraline 100 MG Tab PO SCH (09:43)
[2019-08-30] MEDS ORDERED: Sodium Chloride 0.9% 1,000 ML IV ONE (13:14)
[2019-08-30] MEDS ORDERED: Magnesium Sulfate/Water 2 GM in Premix Bag 1 BAG IV ONE (13:43)
[2019-08-31] MEDS: Piperacillin/Tazobactam 3.375 GM in Sodium Chloride 0.9% 50 ML IV SCH ×4 (01:03→17:49)
[2019-08-31] MEDS: Heparin Sodium 5,000 Units/ML Vial SUBCUT SCH ×3 (01:13→17:07)
[2019-08-31] MEDS: Lactated Ringers 1,000 ML IV SCH ×3 (01:46→21:52)
[2019-08-31] MEDS ORDERED: Lactated Ringers 1,000 ML IV SCH (05:30)
[2019-08-31] MEDS: Metoclopramide 10 MG/2 ML SDV IV SCH ×3 (05:48→17:50)
[2019-08-31] MEDS: metroNIDAZOLE/Normal Saline 500 MG in Premix Bag 1 BAG IV SCH ×3 (05:48→17:49)
[2019-08-31] MEDS: Levothyroxine 88 MCG Tab PO SCH (06:29)
[2019-08-31 07:25] LABS: BLOOD UREA NITROGEN,BUN 22 mg/dL (7.0-18.0); CARBON DIOXIDE,CO2 25.1 mmol/L (21.0-32.0); CHLORIDE,CL 101 mmol/L (98-107); GLUCOSE RANDOM 125 mg/dL (74-106); POTASSIUM,K 3.8 mmol/L (3.5-5.1); SODIUM,NA 135 mmol/L (136-145)
--- NOTE | 2019-08-31 08:06 | PCM.CONS ---
H&P History of Present Illness - General Date of Service: 08/31/19 Admit Problem/Dx: Admission Diagnosis/Problem Admission Diagnosis/Problem Acute appendicitis Source of Information: Patient History Limitations: Reports: No Limitations - History of Present Illness Initial Comments - Free Text/Narative: Feeling improved today, abdominal pain continues. Passing gas. No chest pain or SOB. No concerns this morning. Very sleepy from narcotics still, but easily arousable. rlq Pain Score (Numeric/FACES): 5 - Related Data Allergies/Adverse Reactions: Allergies Allergy/AdvReac Type Severity Reaction Status Date / Time No Known Allergies Allergy Verified 08/29/19 18:09 Home Medications: Home Meds Levothyroxine [Synthroid] 08/30/19 [History] Omeprazole 08/30/19 [History] Oxybutynin 08/30/19 [History] Sertraline HCl 08/30/19 [History] Past Medical History Cardiovascular History: Reports: None. Denies: Afib, Blood Clots/VTE/DVT, CAD, High Cholesterol, HI Respiratory History: Reports: None. 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 Denies: Fever, Chills HEENT: Reports: No Symptoms. Denies: Headaches, Sinus Congestion, Sore Throat Pulmonary: Reports: No Symptoms. Denies: Shortness of Breath, Cough Cardiovascular: Reports: No Symptoms. Denies: Chest Pain, Edema Gastrointestinal: Reports: Abdominal Pain, Flatus. Denies: Black Stool, Bloody Stool, Constipation, Diarrhea, Nausea Genitourinary: Reports: No Symptoms. Denies: Dysuria, Frequency, Burning Psychiatric: Reports: No Symptoms, Confusion, Depression Neurological: Reports: No Symptoms, Confusion, Dizziness Hematologic/Lymphatic: Reports: No Symptoms Immunologic: Reports: No Symptoms Exam - Exam Exam: See Below - Vital Signs Vital Signs: Last Vital Signs Temp 96.8 F L 08/31/19 04:00 Pulse 89 08/30/19 10:00 Resp 22 H 08/31/19 07:00 BP 101/41 L 08/31/19 07:00 Pulse Ox 93 L 08/31/19 07:00 Weight: 93.894 kg - Exam General: Alert, Oriented, Cooperative HEENT: Conjunctiva Clear, Mucosa Moist & [place], Posterior Pharynx Clear Lungs: Clear to Auscultation, Normal Respiratory Effort Cardiovascular: Regular Rate, Regular Rhythm GI/Abdominal Exam: Soft, Tender. No: Normal Bowel Sounds (hypoactive) Extremities: Normal Inspection, Normal Range of Motion, Pedal Edema (+1 edema, non pitting) Skin: Incision (abdominal with packing and GERMAN drain) Neuro Extensive - Mental Status: Alert, Oriented x3 Neuro Extensive - Motor, Sensory, Reflexes: CN II-XII Intact Psychiatric: Alert, Normal Affect, Normal Mood - Patient Data Lab Results Last 24 hrs: Laboratory Results - last 24 hr 08/31/19 08/31/19 Range/Units 06:41 06:41 WBC 8.38 (4.0-11.0) K/uL RBC 3.77 L (4.30-5.90) M/uL Hgb 9.9 L (12.0-16.0) g/dL Hct 30.8 L (36.0-46.0) % MCV 81.7 (80.0-98.0) fL MCH 26.3 L (27.0-32.0) pg MCHC 32.1 (31.0-37.0) g/dL RDW Std Deviation 47.4 (28.0-62.0) fl RDW Coeff of Gibran 16 H (11.0-15.0) % Plt Count 342 (150-400) K/uL MPV 9.50 (7.40-12.00) fL Neutrophils % (Manual) 51 (48.0-80.0) % Band Neutrophils % 26 % Lymphocytes % (Manual) 17 (16.0-40.0) % Monocytes % (Manual) 5 (0.0-15.0) % Eosinophils % (Manual) 1 (0.0-7.0) % Nucleated RBC % 0.0 /100WBC Absolute Seg Neuts 4.3 (1.4-5.7) Band Neutrophils # 2.2 Lymphocytes # (Manual) 1.4 (0.6-2.4) Monocytes # (Manual) 0.4 (0.0-0.8) Eosinophils # (Manual) 0.1 (0.0-0.7) Sodium 135 L (136-145) mmol/L Potassium 3.8 (3.5-5.1) mmol/L Chloride 101 (98-107) mmol/L Carbon Dioxide 25.1 (21.0-32.0) mmol/L BUN 22 H (7.0-18.0) mg/dL Creatinine 1.0 (0.6-1.0) mg/dL Est Cr Clr Drug Dosing TNP Estimated GFR (MDRD) 54.3 ml/min Glucose 125 H (74-106) mg/dL Calcium 8.0 L (8.5-10.1) mg/dL Magnesium 2.3 (1.8-2.4) mg/dL Result Diagrams: 08/31/19 06:41 08/31/19 06:41 Gianfranco Results Last 24 hrs: Microbiology 08/29/19 18:05 Urine Culture - Final Urine, Clean Catch Escherichia Coli 08/29/19 19:10 Aerobic Blood Culture - Preliminary Blood - Venous - Lab Draw NO GROWTH AFTER 1 DAY Anaerobic Blood Culture - Preliminary NO GROWTH AFTER 1 DAY 08/29/19 19:40 Aerobic Blood Culture - Preliminary Blood - Venous NO GROWTH AFTER 1 DAY Anaerobic Blood Culture - Preliminary NO GROWTH AFTER 1 DAY Sepsis Event Note - Evaluation Sepsis Screening Result: Sepsis Risk - Focused Exam Vital Signs: Vital Signs Temp Resp BP Pulse Ox 08/31/19 07:00 22 H 101/41 L 93 L 08/31/19 06:00 19 131/59 L 93 L 08/31/19 05:00 20 125/63 93 L 08/31/19 04:00 96.8 F L 23 H 122/54 L 93 L 08/31/19 03:00 17 114/58 L 93 L 08/31/19 02:00 17 104/56 L 91 L 08/31/19 01:00 16 106/57 L 92 L 08/31/19 00:00 97 F 22 H 113/72 92 L 08/30/19 23:00 16 92/59 L 95 08/30/19 22:00 96.3 F L 25 H 97/52 L 94 L 08/30/19 21:00 21 H 94/60 94 L Date Exam was Performed: 08/31/19 Time Exam was Performed: 13:01 Consult PN Assessment/Plan POD#: 2 Procedures: Procedures ASSAY OF FREE THYROXINE (02/21/16) ASSAY THYROID STIM HORMONE (02/21/16) COMPLETE CBC W/AUTO DIFF WBC (02/21/16) COMPREHEN METABOLIC PANEL (02/21/16) IMMUNIZATION ADMIN (05/24/17) LIPID PANEL (02/21/16) OFFICE/OUTPATIENT VISIT NEW (05/24/17) ROUTINE VENIPUNCTURE (02/21/16) TD VACC NO PRESV 7 YRS+ IM (05/24/17) (1) Acute appendicitis SNOMED Code(s): 54484970 Code(s): K35.80 - UNSPECIFIED ACUTE APPENDICITIS Current Visit: Yes Qualifiers: Acute appendicitis type: unspecified acute appendicitis type Qualified Code (s): K35.80 - Unspecified acute appendicitis (2) Hypothyroidism SNOMED Code(s): 26094230 Code(s): E03.9 - HYPOTHYROIDISM, UNSPECIFIED Priority: Low Current Visit : Yes Qualifiers: Hypothyroidism type: unspecified Qualified Code(s): E03.9 - Hypothyroidism , unspecified Problem List Initiated/Reviewed/Updated: Yes My Orders Last 24 Hours: My Active Orders 09/01/19 05:11 MAGNESIUM [CHEM] AM 09/02/19 05:11 MAGNESIUM [CHEM] AM Plan: This 74 year old admitted with sepsis, rupture appendicitis with intraabdominal abscess 1. Sepsis, rupture appendicitis with intraabdominal abscess - Norepinephrine gtt, weaned off this am. BP still softer, restart Norepi if MAP drops below 65. - Continue LR at 100 for now, monitor urine outpatient. 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 pain controlled. - UC returns E coli, merrill sensitive, Zosyn covers well. 2. CARLOS A - Improved. - Continue Fluids - Avoid nephrotoxic medications. 3. Hypomagnesemia: - Resolved. Monitor daily. 4. Hypothyroidism - Continue Synthroid VTE prophylaxis: Heparin subcut Treatment plan discussed with Dr Mckay and she is in agreement.
[2019-08-31] MEDS ORDERED: Lactated Ringers 1,000 ML IV ONE ×2 (08:22→14:52)
[2019-08-31] MEDS: Sertraline 100 MG Tab PO SCH (08:46)
--- NOTE | 2019-08-31 11:24 | PN ---
TH[facility] Physician - Brief Progress [id number]/21/2020 11:23[facility] Aide Lea, PABLO - [facility] - MWN LUISADELE BritDate of Service 08/31/2019 11:23HPI/Events of Note eICU Progress [id number] admitted for appendicitis and septic shock. History obtained primarily fr om review of EMR.Camera exam: Patient sitting up in chair. Vitals monitor reviewed.Labs: reviewedRadi ology: reviewedeICU Impression and Recommendations:Septic shock differential including appendicitis, E. coli UTIAgree with use of norepinephrine for vasopressor support as needed to maintain MAP target of >65mmHgContinue antibiotic therapySuggest intermittent determination of volume status/fluid respon sive state (ie bedside ultrasound of IVC, NICOM, ETCO2 monitoring with passive leg raise, CVP monitor ing, VBG from central line for calculation of ScVO2) if relevant modalities availableDVT and GI proph ylaxis as appropriate.We are available to assist in further clarification, or implementation of any o f the above recommendations if desired by primary service.Thank you for allowing us to participate in the care of this patient.The above note transcribed with the assistance of dictation software. Pleas e excuse any errors.Interventions Major-Sepsis - evaluation and management, Shock - evaluation and ma nagement
[2019-08-31] MEDS: Acetaminophen/HYDROcodone 325-5 MG Tab PO PRN ×2 (11:55→17:50)
--- NOTE | 2019-08-31 12:07 | PCM.SURGPN ---
- General Info Date of Service: 08/31/19 POD#: 2 Post-Op Diagnosis: Ruptured appendicitis with abscess Functional Status: Reports: Pain Controlled, Tolerating Diet, Incentive Spirometry. Denies: New Symptoms - Review of Systems General: Reports: Weakness, Fatigue, Appetite. Denies: Fever, Malaise, Chills, Night Sweats HEENT: Reports: No Symptoms Pulmonary: Denies: Shortness of Breath, Pleuritic Chest Pain, Cough Cardiovascular: Denies: Chest Pain Gastrointestinal: Reports: Abdominal Pain (Incisional), Flatus. Denies: Nausea , Vomiting Genitourinary: Denies: Dysuria, Frequency, Burning, Pain, Urgency, Incontinence Musculoskeletal: Reports: No Symptoms Skin: Denies: Cyanosis, Jaundice, Mottled Neurological: Denies: Confusion, Dizziness, Headache Psychiatric: Denies: Confusion, Depression, Mood Lability, Anxiety - Patient Data Vitals - Most Recent: Last Vital Signs Temp 98.7 F 08/31/19 08:00 Pulse 89 08/30/19 10:00 Resp 24 H 08/31/19 11:00 BP 108/51 L 08/31/19 11:00 Pulse Ox 89 L 08/31/19 11:00 Weight - Most Recent: 207 lb I&O - Last 24 Hours: Intake & Output 08/31/19 08/31/19 08/31/19 03:59 11:59 19:59 Intake Total 4563 Output Total 755 Balance 3808 Lab Results Last 24 Hrs: Laboratory Results - last 24 hr 08/31/19 08/31/19 Range/Units 06:41 06:41 WBC 8.38 (4.0-11.0) K/uL RBC 3.77 L (4.30-5.90) M/uL Hgb 9.9 L (12.0-16.0) g/dL Hct 30.8 L (36.0-46.0) % MCV 81.7 (80.0-98.0) fL MCH 26.3 L (27.0-32.0) pg MCHC 32.1 (31.0-37.0) g/dL RDW Std Deviation 47.4 (28.0-62.0) fl RDW Coeff of Gibran 16 H (11.0-15.0) % Plt Count 342 (150-400) K/uL MPV 9.50 (7.40-12.00) fL Neutrophils % (Manual) 51 (48.0-80.0) % Band Neutrophils % 26 % Lymphocytes % (Manual) 17 (16.0-40.0) % Monocytes % (Manual) 5 (0.0-15.0) % Eosinophils % (Manual) 1 (0.0-7.0) % Nucleated RBC % 0.0 /100WBC Absolute Seg Neuts 4.3 (1.4-5.7) Band Neutrophils # 2.2 Lymphocytes # (Manual) 1.4 (0.6-2.4) Monocytes # (Manual) 0.4 (0.0-0.8) Eosinophils # (Manual) 0.1 (0.0-0.7) Sodium 135 L (136-145) mmol/L Potassium 3.8 (3.5-5.1) mmol/L Chloride 101 (98-107) mmol/L Carbon Dioxide 25.1 (21.0-32.0) mmol/L BUN 22 H (7.0-18.0) mg/dL Creatinine 1.0 (0.6-1.0) mg/dL Est Cr Clr Drug Dosing TNP Estimated GFR (MDRD) 54.3 ml/min Glucose 125 H (74-106) mg/dL Calcium 8.0 L (8.5-10.1) mg/dL Magnesium 2.3 (1.8-2.4) mg/dL Gianfranco Results Last 24 Hrs: Microbiology 08/29/19 18:05 Urine Culture - Final Urine, Clean Catch Escherichia Coli 08/29/19 19:10 Aerobic Blood Culture - Preliminary Blood - Venous - Lab Draw NO GROWTH AFTER 1 DAY Anaerobic Blood Culture - Preliminary NO GROWTH AFTER 1 DAY 08/29/19 19:40 Aerobic Blood Culture - Preliminary Blood - Venous NO GROWTH AFTER 1 DAY Anaerobic Blood Culture - Preliminary NO GROWTH AFTER 1 DAY Med Orders - Current: Current Medications Acetaminophen (Tylenol) 325 mg PO Q4H PRN PRN Reason: Fever Greater Than 101 Hydrocodone Bitart/Acetaminophen (Percy 325-5 Mg) 1 - 2 tab PO Q4H PRN PRN Reason: Pain (moderate 4-6) Last Admin: 08/31/19 11:55 Dose: 1 tab Diphenhydramine HCl (Benadryl) 25 mg IVPUSH Q6H PRN PRN Reason: Itching Diphenhydramine HCl (Benadryl) 25 mg PO Q6H PRN PRN Reason: Itching Fentanyl (Sublimaze) 50 mcg IVPUSH Q5M PRN PRN Reason: Pain Heparin Sodium (Porcine) (Heparin Sodium) 5,000 units SUBCUT Q8H [facility] Last Admin: 08/31/19 08:46 Dose: 5,000 units Piperacillin Sod/Tazobactam (Sod 3.375 gm/ Sodium Chloride) 50 mls @ 100 mls/ hr IV Q6H [facility] Last Admin: 08/31/19 05:49 Dose: 100 mls/hr Metronidazole 500 mg/ Premix 100 mls @ 100 mls/hr IV QID [facility] Last Admin: 08/31/19 05:48 Dose: 100 mls/hr Lactated Ringer's (Ringers, Lactated) 1,000 mls @ 999 mls/hr IV BOLUS [facility] Last Admin: 08/30/19 04:06 Dose: 999 mls/hr Norepinephrine Bitartrate (Norepinephr-0.9% Nacl 4 Mg/250) 4 mg in 250 mls @ 7.5 mls/hr IV TITRATE [facility]; Protocol Last Titration: 08/31/19 04:00 Dose: 0 mcg/min, 0 mls/hr Lactated Ringer's (Ringers, Lactated) 1,000 mls @ 100 mls/hr IV ASDIRECTED [facility] Last Admin: 08/31/19 11:44 Dose: 100 mls/hr Levothyroxine Sodium (Synthroid) 88 mcg PO ACBREAKFAST [facility] Last Admin: 08/31/19 06:29 Dose: 88 mcg Metoclopramide HCl (Reglan) 10 mg IV Q6H [facility] Last Admin: 08/31/19 05:48 Dose: 10 mg Morphine Sulfate (Morphine [employer] Adviser 30 Mg In 30 Ml) 0 mg IV ASDIRECTED [facility]; Protocol Last Admin: 08/30/19 01:35 Dose: 30 mg Naloxone HCl (Narcan) 0.04 mg IVPUSH Q3M PRN PRN Reason: Respiratory Depression Ondansetron HCl (Zofran) 4 mg IVPUSH Q6H PRN PRN Reason: Nausea/Vomiting Sertraline HCl (Zoloft) 100 mg PO DAILY [facility] Last Admin: 08/31/19 08:46 Dose: 100 mg Sodium Chloride (Saline Flush) 10 ml FLUSH ASDIRECTED PRN PRN Reason: Keep Vein Open Sodium Chloride (Saline Flush) 2.5 ml FLUSH ASDIRECTED PRN PRN Reason: Keep Vein Open Discontinued Medications Bupivacaine HCl (Marcaine 0.5%) Confirm Administered Dose 30 ml .ROUTE .STK-MED ONE Stop: 08/29/19 21:11 Cefazolin Sodium (Ancef) Confirm Administered Dose 1 gm .ROUTE .STK-MED ONE Stop: 08/29/19 21:11 Cefazolin Sodium (Ancef) Confirm Administered Dose 1 gm .ROUTE .STK-MED ONE Stop: 08/29/19 22:47 Enoxaparin Sodium (Lovenox) 85 mg 1 mg/kg (85 mg) SUBCUT DAILY [facility] Fentanyl (Sublimaze) Confirm Administered Dose 250 mcg .ROUTE .STK-MED ONE Stop: 08/29/19 21:09 Fentanyl (Sublimaze) Confirm Administered Dose 250 mcg .ROUTE .STK-MED ONE Stop: 08/29/19 22:53 Glycopyrrolate (Robinul) Confirm Administered Dose 0.2 mg .ROUTE .STK-MED ONE Stop: 08/29/19 21:10 Sodium Chloride (Normal Saline) 1,000 mls @ 1,000 mls/hr IV .Bolus ONE Stop: 08/29/19 19:49 Last Admin: 08/29/19 18:57 Dose: 1,000 mls/hr Piperacillin Sod/Tazobactam (Sod 3.375 gm/ Sodium Chloride) 50 mls @ 100 mls/ hr IV ONETIME ONE Stop: 08/29/19 19:25 Last Admin: 08/29/19 19:04 Dose: 100 mls/hr Lactated Ringer's (Ringers, Lactated) 1,000 mls @ 125 mls/hr IV ASDIRECTED [facility] Last Admin: 08/29/19 21:07 Dose: 125 mls/hr Acetaminophen 1,000 mg/ Premix 100 mls @ 400 mls/hr IV Q6H PRN PRN Reason: Pain Metronidazole 500 mg/ Premix 100 mls @ 100 mls/hr IV ONETIME ONE Stop: 08/30/19 00:21 Last Admin: 08/30/19 01:08 Dose: Not Given Metronidazole 500 mg/ Premix 100 mls @ 100 mls/hr IV ONETIME ONE Stop: 08/30/19 00:24 Last Admin: 08/30/19 12:38 Dose: Not Given Metronidazole (Flagyl 500 Mg In Ns 100 Ml) Confirm Administered Dose 200 mls @ as directed .ROUTE .STK-MED ONE Stop: 08/29/19 23:26 Last Admin: 08/30/19 01:08 Dose: Not Given Lactated Ringer's (Ringers, Lactated) 1,000 mls @ 125 mls/hr IV ASDIRECTED [facility] Last Admin: 08/31/19 01:46 Dose: 175 mls/hr Acetaminophen (Ofirmev) Confirm Administered Dose 100 mls @ as directed .ROUTE .STK-MED ONE Stop: 08/30/19 00:25 Albumin Human (Buminate 5%) 250 mls @ 500 mls/hr IV ASDIRECTED [facility] Albumin Human (Buminate 5%) 250 mls @ 500 mls/hr IV ONETIME ONE Stop: 08/30/19 06:44 Last Admin: 08/30/19 06:18 Dose: 500 mls/hr Sodium Chloride (Normal Saline) 1,000 mls @ 999 mls/hr IV .Bolus ONE Stop: 08/30/19 14:14 Last Admin: 08/30/19 13:27 Dose: 999 mls/hr Magnesium Sulfate 2 gm/ Premix 50 mls @ 50 mls/hr IV ONETIME ONE Stop: 08/30/19 14:42 Last Admin: 08/30/19 13:59 Dose: 50 mls/hr Lactated Ringer's (Ringers, Lactated) 1,000 mls @ 999 mls/hr IV ONETIME ONE Stop: 08/31/19 09:22 Last Admin: 08/31/19 08:29 Dose: 999 mls/hr Iopamidol (Isovue-370 (76%)) 100 ml IVPUSH ONETIME STA Stop: 08/29/19 19:44 Last Admin: 08/29/19 19:44 Dose: 100 ml Ketorolac Tromethamine (Toradol) Confirm Administered Dose 30 mg .ROUTE .STK- MED ONE Stop: 08/29/19 21:10 Lidocaine (Xylocaine-Mpf 2%) Confirm Administered Dose 5 ml .ROUTE .STK-MED ONE Stop: 08/29/19 21:10 Midazolam HCl (Versed 1 Mg/Ml) Confirm Administered Dose 2 mg .ROUTE .STK-MED ONE Stop: 08/29/19 21:09 Morphine Sulfate (Morphine) 6 mg IVPUSH ONETIME ONE Stop: 08/29/19 18:13 Last Admin: 08/29/19 18:23 Dose: 6 mg Ondansetron HCl (Zofran) 4 mg IVPUSH ONETIME ONE Stop: 08/29/19 18:13 Last Admin: 08/29/19 18:21 Dose: 4 mg Ondansetron HCl (Zofran) Confirm Administered Dose 4 mg .ROUTE .STK-MED ONE Stop: 08/29/19 21:10 Ondansetron HCl (Zofran) 4 mg IVPUSH Q6H PRN PRN Reason: Nausea/Vomiting Propofol (Diprivan 20 Ml) Confirm Administered Dose 200 mg .ROUTE .STK-MED ONE Stop: 08/29/19 21:09 Rocuronium [place] (Zemuron) Confirm Administered Dose 100 mg .ROUTE .STK-MED ONE Stop: 08/29/19 21:10 Sugammadex Sodium (Bridion) Confirm Administered Dose 200 mg .ROUTE .STK-MED ONE Stop: 08/29/19 22:12 - Exam Wound/Incisions: Dressing Dry and Intact, Drainage (Scott drain is draining serous fluid.) Quality Assessment: Supplemental Oxygen, DVT Prophylaxis. No: Urine Catheter, Skin Breakdown General: Alert, Oriented, Cooperative, No Acute Distress HEENT: Pupils Equal, Pupils Reactive Neck: Supple, Trachea Midline Lungs: Clear to Auscultation, Normal Respiratory Effort Cardiovascular: Regular Rate, Regular Rhythm, No Murmurs GI/Abdominal Exam: Soft, Non-Tender, No Distention, Abnormal Bowel Sounds ( Hypoactive). No: Guarding, Rigid, Rebound Extremities: Normal Inspection Skin: Warm, Dry, Intact Neurological: No New Focal Deficit Psy/Mental Status: Alert, Normal Affect Sepsis Event Note - Evaluation Sepsis Screening Result: Sepsis Risk - Focused Exam Vital Signs: Vital Signs Temp Resp BP Pulse Ox 08/31/19 11:00 24 H 108/51 L 89 L 08/31/19 10:44 18 98/49 L 92 L 08/31/19 08:33 12 96/45 L 94 L 08/31/19 08:00 98.7 F 20 89/42 L 92 L 08/31/19 07:00 22 H 101/41 L 93 L 08/31/19 06:00 19 131/59 L 93 L 08/31/19 05:00 20 125/63 93 L 08/31/19 04:00 96.8 F L 23 H 122/54 L 93 L 08/31/19 03:00 17 114/58 L 93 L 08/31/19 02:00 17 104/56 L 91 L 08/31/19 01:00 16 106/57 L 92 L Date Exam was Performed: 08/31/19 Time Exam was Performed: 12:02 - Problem List & Annotations (1) Right lower quadrant abdominal pain SNOMED Code(s): 267078167 Code(s): R10.31 - RIGHT LOWER QUADRANT PAIN Status: Acute Priority: High Current Visit: Yes (2) Loss of appetite SNOMED Code(s): 29061497 Code(s): R63.0 - ANOREXIA Status: Acute Priority: High Current Visit: Yes (3) Appendicitis SNOMED Code(s): 44377951 Code(s): K37 - UNSPECIFIED APPENDICITIS Status: Acute Priority: High Current Visit: Yes Qualifiers: Appendicitis type: acute appendicitis Acute appendicitis type: with generalized peritonitis Appendicitis gangrene presence: without gangrene Appendicitis perforation presence: with perforation Appendicitis abscess presence: with abscess Qualified Code(s): K35.21 - Acute appendicitis with generalized peritonitis, with abscess (4) Hypothyroidism SNOMED Code(s): 07711498 Code(s): E03.9 - HYPOTHYROIDISM, UNSPECIFIED Status: Acute Priority: Low Current Visit: Yes Qualifiers: Hypothyroidism type: unspecified Qualified Code(s): E03.9 - Hypothyroidism , unspecified (5) Depression SNOMED Code(s): 87534027 Code(s): F32.9 - MAJOR DEPRESSIVE DISORDER, SINGLE EPISODE, UNSPECIFIED Status: Acute Priority: Low Current Visit: Yes Qualifiers: Major depression recurrence: unspecified whether recurrent Active/ Remission status: remission status unspecified - Problem List Review Problem List Initiated/Reviewed/Updated: Yes - My Orders Last 24 Hours: Active Orders 24 hr Category Date Time Status DC Santiago Catheter [Urinary Catheter Removal] [RC] Per Care 08/31/19 08:36 Active Unit Routine Full Liquid Diet [DIET] Diet 08/31/19 Lunch Active BASIC METABOLIC PANEL,BMP [CHEM] AM Lab 09/01/19 05:11 Ordered CBC WITH MANUAL DIFF [HEME] AM Lab 09/01/19 05:11 Ordered MAGNESIUM [CHEM] AM Lab 09/01/19 05:11 Ordered MAGNESIUM [CHEM] AM Lab 09/02/19 05:11 Ordered Lactated Ringers [Ringers, Lactated] 1,000 ml Med 08/31/19 05:30 Active IV ASDIRECTED Levothyroxine [Synthroid] Med 08/31/19 07:30 Active 88 mcg PO ACBREAKFAST Medication Orders Acetaminophen (Tylenol) 325 mg PO Q4H PRN PRN Reason: Fever Greater Than 101 Hydrocodone Bitart/Acetaminophen (Percy 325-5 Mg) 1 - 2 tab PO Q4H PRN PRN Reason: Pain (moderate 4-6) Last Admin: 08/31/19 11:55 Dose: 1 tab Diphenhydramine HCl (Benadryl) 25 mg IVPUSH Q6H PRN PRN Reason: Itching Diphenhydramine HCl (Benadryl) 25 mg PO Q6H PRN PRN Reason: Itching Fentanyl (Sublimaze) 50 mcg IVPUSH Q5M PRN PRN Reason: Pain Heparin Sodium (Porcine) (Heparin Sodium) 5,000 units SUBCUT Q8H [facility] Last Admin: 08/31/19 08:46 Dose: 5,000 units Admin: 08/31/19 01:13 Dose: 5,000 units Admin: 08/30/19 17:38 Dose: 5,000 units Admin: 08/30/19 09:42 Dose: 5,000 units Piperacillin Sod/Tazobactam (Sod 3.375 gm/ Sodium Chloride) 50 mls @ 100 mls/ hr IV Q6H [facility] Last Admin: 08/31/19 05:49 Dose: 100 mls/hr Infusion: 08/31/19 01:33 Dose: 100 mls/hr Admin: 08/31/19 01:03 Dose: 100 mls/hr Infusion: 08/30/19 19:09 Dose: 100 mls/hr Admin: 08/30/19 18:39 Dose: 100 mls/hr Infusion: 08/30/19 13:28 Dose: 100 mls/hr Admin: 08/30/19 12:58 Dose: 100 mls/hr Infusion: 08/30/19 07:39 Dose: 100 mls/hr Admin: 08/30/19 07:09 Dose: 100 mls/hr Infusion: 08/30/19 02:26 Dose: 100 mls/hr Admin: 08/30/19 01:56 Dose: 100 mls/hr Metronidazole 500 mg/ Premix 100 mls @ 100 mls/hr IV QID [facility] Last Admin: 08/31/19 05:48 Dose: 100 mls/hr Infusion: 08/31/19 00:59 Dose: 100 mls/hr Admin: 08/30/19 23:59 Dose: 100 mls/hr Infusion: 08/30/19 18:41 Dose: 100 mls/hr Admin: 08/30/19 17:41 Dose: 100 mls/hr Infusion: 08/30/19 12:45 Dose: 100 mls/hr Admin: 08/30/19 11:45 Dose: 100 mls/hr Infusion: 08/30/19 06:54 Dose: 100 mls/hr Admin: 08/30/19 05:54 Dose: 100 mls/hr Lactated Ringer's (Ringers, Lactated) 1,000 mls @ 999 mls/hr IV BOLUS [facility] Last Admin: 08/30/19 04:06 Dose: 999 mls/hr Infusion: 08/30/19 04:06 Dose: 999 mls/hr Admin: 08/30/19 03:39 Dose: 999 mls/hr Norepinephrine Bitartrate (Norepinephr-0.9% Nacl 4 Mg/250) 4 mg in 250 mls @ 7.5 mls/hr IV TITRATE [facility]; Protocol Last Titration: 08/31/19 04:00 Dose: 0 mcg/min, 0 mls/hr Titration: 08/31/19 02:45 Dose: 1 mcg/min, 3.75 mls/hr Titration: 08/31/19 00:35 Dose: 2 mcg/min, 7.5 mls/hr Titration: 08/30/19 08:14 Dose: 3 mcg/min, 11.25 mls/hr Admin: 08/30/19 06:57 Dose: 2 mcg/min, 7.5 mls/hr Lactated Ringer's (Ringers, Lactated) 1,000 mls @ 100 mls/hr IV ASDIRECTED [facility] Last Admin: 08/31/19 11:44 Dose: 100 mls/hr Levothyroxine Sodium (Synthroid) 88 mcg PO ACBREAKFAST [facility] Last Admin: 08/31/19 06:29 Dose: 88 mcg Metoclopramide HCl (Reglan) 10 mg IV Q6H [facility] Last Admin: 08/31/19 05:48 Dose: 10 mg Admin: 08/30/19 23:57 Dose: 10 mg Admin: 08/30/19 18:33 Dose: 10 mg Admin: 08/30/19 11:51 Dose: 10 mg Admin: 08/30/19 06:02 Dose: 10 mg Admin: 08/30/19 01:38 Dose: 10 mg Morphine Sulfate (Morphine Race [employer] Adviser 30 Mg In 30 Ml) 0 mg IV ASDIRECTED [facility]; Protocol Last Admin: 08/30/19 01:35 Dose: 30 mg Naloxone HCl (Narcan) 0.04 mg IVPUSH Q3M PRN PRN Reason: Respiratory Depression Ondansetron HCl (Zofran) 4 mg IVPUSH Q6H PRN PRN Reason: Nausea/Vomiting Sertraline HCl (Zoloft) 100 mg PO DAILY [facility] Last Admin: 08/31/19 08:46 Dose: 100 mg Admin: 08/30/19 09:43 Dose: 100 mg Sodium Chloride (Saline Flush) 10 ml FLUSH ASDIRECTED PRN PRN Reason: Keep Vein Open Sodium Chloride (Saline Flush) 2.5 ml FLUSH ASDIRECTED PRN PRN Reason: Keep Vein Open - Assessment Assessment (Free Text/Narrative):: Patient remains hemodynamically stable, although does require mild pressor support with Levophed. She has tolerated her clear liquid diet now for approximately 36 hours. She again remains afebrile and shows no signs of tachycardia. The Scott drain is draining serous fluid. No obvious purulent material was noted and the amount is decreasing daily. Here an output has been okay with 375 mL the last 12 hours. Patient still demonstrates a significant bandemia on her white count. - Plan Plan (Free Text/Narrative):: Patient will continue to be monitored in the intensive care unit as long as she requires mild pressor support. Discontinue the Santiago catheter. Full liquid diet. Continue antibiotics. Labs ordered for morning.
[2019-08-31] MEDS ORDERED: Morphine 4 MG/ML Syringe IVPUSH PRN (13:58)
[2019-09-01] MEDS: Metoclopramide 10 MG/2 ML SDV IV SCH ×4 (00:40→18:41)
[2019-09-01] MEDS: metroNIDAZOLE/Normal Saline 500 MG in Premix Bag 1 BAG IV SCH ×4 (01:07→17:29)
[2019-09-01] MEDS: Heparin Sodium 5,000 Units/ML Vial SUBCUT SCH ×3 (01:09→16:38)
[2019-09-01] MEDS: Lactated Ringers 1,000 ML IV SCH (03:21)
--- NOTE | 2019-09-01 05:14 | PN ---
THC Physician - Brief Progress [id number]/22/2020 05:12[facility] medinaAidePABLO - ZAIRE ([facility]) - ADELE CERDADate of Service 09/01/2019 05:12HPI/Events of Note eICU Event NoteRN reports patient sounds wheezy requesting to turn off IVFOn CameraNAD RR 22 Sa ts 93% supine no accessory musclesBP 90-123/57-71Will stop IVF for now and cont to monitorThank you f or allowing us to participate in the care of your patient.Interventions Intermediate-Medication jamison e / dose adjustment
[2019-09-01] MEDS: Acetaminophen/HYDROcodone 325-5 MG Tab PO PRN ×2 (05:24→16:35)
[2019-09-01] MEDS: Piperacillin/Tazobactam 3.375 GM in Sodium Chloride 0.9% 50 ML IV SCH ×5 (06:37→18:48)
[2019-09-01] MEDS: Levothyroxine 88 MCG Tab PO SCH (06:41)
[2019-09-01 07:24] LABS: BLOOD UREA NITROGEN,BUN 12 mg/dL (7.0-18.0); CARBON DIOXIDE,CO2 25.6 mmol/L (21.0-32.0); CHLORIDE,CL 102 mmol/L (98-107); GLUCOSE RANDOM 125 mg/dL (74-106); POTASSIUM,K 3.2 mmol/L (3.5-5.1); SODIUM,NA 134 mmol/L (136-145)
--- NOTE | 2019-09-01 07:47 | PCM.CONSN ---
- General Info Date of Service: 09/01/19 Admission Dx/Problem (Free Text): Admission Diagnosis/Problem Admission Diagnosis/Problem Acute appendicitis, septic shock, UTI Subjective Update: Doing better today, no chest pain. Reports some dyspnea. Abdominal pain is tolerable. No other concerns this morning. - Review of Systems General: Reports: Fatigue, Malaise Pulmonary: Reports: Shortness of Breath. Denies: Cough, Sputum Cardiovascular: Reports: No Symptoms. Denies: Chest Pain, Edema Gastrointestinal: Reports: Abdominal Pain, Flatus. Denies: Nausea, Vomiting Genitourinary: Reports: No Symptoms. Denies: Dysuria, Frequency, Burning Musculoskeletal: Reports: No Symptoms Skin: Reports: No Symptoms Neurological: Reports: No Symptoms Psychiatric: Reports: No Symptoms - Patient Data Vitals - Most Recent: Last Vital Signs Temp 98.2 F 09/01/19 04:00 Pulse 89 08/30/19 10:00 Resp 21 H 09/01/19 07:00 BP 112/57 L 09/01/19 07:00 Pulse Ox 93 L 09/01/19 07:00 Weight - Most Recent: 97.9 kg I&O - Last 24 Hours: Intake & Output 08/31/19 09/01/19 09/01/19 22:59 06:59 14:59 Intake Total 2900 2232 50 Output Total 170 1000 Balance 2730 1232 50 Lab Results Last 24 Hours: Laboratory Results - last 24 hr 08/31/19 09/01/19 09/01/19 Range/Units 14:13 06:24 06:24 WBC 12.42 H (4.0-11.0) K/uL RBC 3.58 L (4.30-5.90) M/uL Hgb 9.5 L (12.0-16.0) g/dL Hct 29.2 L (36.0-46.0) % MCV 81.6 (80.0-98.0) fL MCH 26.5 L (27.0-32.0) pg MCHC 32.5 (31.0-37.0) g/dL RDW Std Deviation 46.7 (28.0-62.0) fl RDW Coeff of Gibran 16 H (11.0-15.0) % Plt Count 404 H (150-400) K/uL MPV 9.70 (7.40-12.00) fL Neutrophils % (Manual) 82 H (48.0-80.0) % Lymphocytes % (Manual) 13 L (16.0-40.0) % Monocytes % (Manual) 4 (0.0-15.0) % Eosinophils % (Manual) 1 (0.0-7.0) % Nucleated RBC % 0.0 /100WBC Absolute Seg Neuts 10.2 H (1.4-5.7) Lymphocytes # (Manual) 1.6 (0.6-2.4) Monocytes # (Manual) 0.5 (0.0-0.8) Eosinophils # (Manual) 0.1 (0.0-0.7) Lactate 0.7 (0.20-2.00) mmol/L Sodium 134 L (136-145) mmol/L Potassium 3.2 L (3.5-5.1) mmol/L Chloride 102 (98-107) mmol/L Carbon Dioxide 25.6 (21.0-32.0) mmol/L BUN 12 (7.0-18.0) mg/dL Creatinine 0.7 (0.6-1.0) mg/dL Est Cr Clr Drug Dosing 56.12 mL/min Estimated GFR (MDRD) > 60.0 ml/min Glucose 125 H (74-106) mg/dL Calcium 7.9 L (8.5-10.1) mg/dL Magnesium 1.8 (1.8-2.4) mg/dL Gianfranco Results Last 24 Hours: Microbiology 08/29/19 19:10 Aerobic Blood Culture - Preliminary Blood - Venous - Lab Draw NO GROWTH AFTER 2 DAYS Anaerobic Blood Culture - Preliminary NO GROWTH AFTER 2 DAYS 08/29/19 19:40 Aerobic Blood Culture - Preliminary Blood - Venous NO GROWTH AFTER 2 DAYS Anaerobic Blood Culture - Preliminary NO GROWTH AFTER 2 DAYS 08/29/19 18:05 Urine Culture - Final Urine, Clean Catch Escherichia Coli Med Orders - Current: Current Medications Acetaminophen (Tylenol) 325 mg PO Q4H PRN PRN Reason: Fever Greater Than 101 Hydrocodone Bitart/Acetaminophen ([place] 325-5 Mg) 1 - 2 tab PO Q4H PRN PRN Reason: Pain (moderate 4-6) Last Admin: 09/01/19 05:24 Dose: 1 tab Diphenhydramine HCl (Benadryl) 25 mg IVPUSH Q6H PRN PRN Reason: Itching Diphenhydramine HCl (Benadryl) 25 mg PO Q6H PRN PRN Reason: Itching Heparin Sodium (Porcine) (Heparin Sodium) 5,000 units SUBCUT Q8H [facility] Last Admin: 09/01/19 01:09 Dose: 5,000 units Piperacillin Sod/Tazobactam (Sod 3.375 gm/ Sodium Chloride) 50 mls @ 100 mls/ hr IV Q6H [facility] Last Admin: 09/01/19 06:37 Dose: 100 mls/hr Metronidazole 500 mg/ Premix 100 mls @ 100 mls/hr IV QID [facility] Last Admin: 09/01/19 05:19 Dose: 100 mls/hr Lactated Ringer's (Ringers, Lactated) 1,000 mls @ 999 mls/hr IV BOLUS [facility] Last Admin: 08/30/19 04:06 Dose: 999 mls/hr Norepinephrine Bitartrate (Norepinephr-0.9% Nacl 4 Mg/250) 4 mg in 250 mls @ 7.5 mls/hr IV TITRATE [facility]; Protocol Last Titration: 09/01/19 03:30 Dose: 0 mcg/min, 0 mls/hr Levothyroxine Sodium (Synthroid) 88 mcg PO ACBREAKFAST [facility] Last Admin: 09/01/19 06:41 Dose: 88 mcg Metoclopramide HCl (Reglan) 10 mg IV Q6H [facility] Last Admin: 09/01/19 06:37 Dose: 10 mg Morphine Sulfate (Morphine) 3 mg IVPUSH Q4H PRN PRN Reason: Pain Naloxone HCl (Narcan) 0.04 mg IVPUSH Q3M PRN PRN Reason: Respiratory Depression Ondansetron HCl (Zofran) 4 mg IVPUSH Q6H PRN PRN Reason: Nausea/Vomiting Sertraline HCl (Zoloft) 100 mg PO DAILY [facility] Last Admin: 08/31/19 08:46 Dose: 100 mg Sodium Chloride (Saline Flush) 10 ml FLUSH ASDIRECTED PRN PRN Reason: Keep Vein Open Sodium Chloride (Saline Flush) 2.5 ml FLUSH ASDIRECTED PRN PRN Reason: Keep Vein Open Discontinued Medications Bupivacaine HCl (Marcaine 0.5%) Confirm Administered Dose 30 ml .ROUTE .K-MED ONE Stop: 08/29/19 21:11 Cefazolin Sodium (Ancef) Confirm Administered Dose 1 gm .ROUTE .STK-MED ONE Stop: 08/29/19 21:11 Cefazolin Sodium (Ancef) Confirm Administered Dose 1 gm .ROUTE .STK-MED ONE Stop: 08/29/19 22:47 Enoxaparin Sodium (Lovenox) 85 mg 1 mg/kg (85 mg) SUBCUT DAILY [facility] Fentanyl (Sublimaze) Confirm Administered Dose 250 mcg .ROUTE .STK-MED ONE Stop: 08/29/19 21:09 Fentanyl (Sublimaze) 50 mcg IVPUSH Q5M PRN PRN Reason: Pain Fentanyl (Sublimaze) Confirm Administered Dose 250 mcg .ROUTE .STK-MED ONE Stop: 08/29/19 22:53 Glycopyrrolate (Robinul) Confirm Administered Dose 0.2 mg .ROUTE .STK-MED ONE Stop: 08/29/19 21:10 Sodium Chloride (Normal Saline) 1,000 mls @ 1,000 mls/hr IV .Bolus ONE Stop: 08/29/19 19:49 Last Admin: 08/29/19 18:57 Dose: 1,000 mls/hr Piperacillin Sod/Tazobactam (Sod 3.375 gm/ Sodium Chloride) 50 mls @ 100 mls/ hr IV ONETIME ONE Stop: 08/29/19 19:25 Last Admin: 08/29/19 19:04 Dose: 100 mls/hr Lactated Ringer's (Ringers, Lactated) 1,000 mls @ 125 mls/hr IV ASDIRECTED [facility] Last Admin: 08/29/19 21:07 Dose: 125 mls/hr Acetaminophen 1,000 mg/ Premix 100 mls @ 400 mls/hr IV Q6H PRN PRN Reason: Pain Metronidazole 500 mg/ Premix 100 mls @ 100 mls/hr IV ONETIME ONE Stop: 08/30/19 00:21 Last Admin: 08/30/19 01:08 Dose: Not Given Metronidazole 500 mg/ Premix 100 mls @ 100 mls/hr IV ONETIME ONE Stop: 08/30/19 00:24 Last Admin: 08/30/19 12:38 Dose: Not Given Metronidazole (Flagyl 500 Mg In Ns 100 Ml) Confirm Administered Dose 200 mls @ as directed .ROUTE .STK-MED ONE Stop: 08/29/19 23:26 Last Admin: 08/30/19 01:08 Dose: Not Given Lactated Ringer's (Ringers, Lactated) 1,000 mls @ 125 mls/hr IV ASDIRECTED [facility] Last Admin: 08/31/19 01:46 Dose: 175 mls/hr Acetaminophen (Ofirmev) Confirm Administered Dose 100 mls @ as directed .ROUTE .K-MED ONE Stop: 08/30/19 00:25 Albumin Human (Buminate 5%) 250 mls @ 500 mls/hr IV ASDIRECTED [facility] Albumin Human (Buminate 5%) 250 mls @ 500 mls/hr IV ONETIME ONE Stop: 08/30/19 06:44 Last Admin: 08/30/19 06:18 Dose: 500 mls/hr Sodium Chloride (Normal Saline) 1,000 mls @ 999 mls/hr IV .Bolus ONE Stop: 08/30/19 14:14 Last Admin: 08/30/19 13:27 Dose: 999 mls/hr Magnesium Sulfate 2 gm/ Premix 50 mls @ 50 mls/hr IV ONETIME ONE Stop: 08/30/19 14:42 Last Admin: 08/30/19 13:59 Dose: 50 mls/hr Lactated Ringer's (Ringers, Lactated) 1,000 mls @ 100 mls/hr IV ASDIRECTED [facility] Last Admin: 08/31/19 11:44 Dose: 100 mls/hr Lactated Ringer's (Ringers, Lactated) 1,000 mls @ 999 mls/hr IV ONETIME ONE Stop: 08/31/19 09:22 Last Admin: 08/31/19 08:29 Dose: 999 mls/hr Lactated Ringer's (Ringers, Lactated) 1,000 mls @ 999 mls/hr IV .BOLUS ONE Stop: 08/31/19 15:52 Last Admin: 08/31/19 14:55 Dose: 999 mls/hr Lactated Ringer's (Ringers, Lactated) 1,000 mls @ 150 mls/hr IV Q6H [facility] Last Admin: 09/01/19 03:21 Dose: 150 mls/hr Iopamidol (Isovue-370 (76%)) 100 ml IVPUSH ONETIME STA Stop: 08/29/19 19:44 Last Admin: 08/29/19 19:44 Dose: 100 ml Ketorolac Tromethamine (Toradol) Confirm Administered Dose 30 mg .ROUTE .STK- MED ONE Stop: 08/29/19 21:10 Lidocaine (Xylocaine-Mpf 2%) Confirm Administered Dose 5 ml .ROUTE .STK-MED ONE Stop: 08/29/19 21:10 Midazolam HCl (Versed 1 Mg/Ml) Confirm Administered Dose 2 mg .ROUTE .STK-MED ONE Stop: 08/29/19 21:09 Morphine Sulfate (Morphine) 6 mg IVPUSH ONETIME ONE Stop: 08/29/19 18:13 Last Admin: 08/29/19 18:23 Dose: 6 mg Morphine Sulfate (Morphine Systems Project Manager 30 Mg In 30 Ml) 0 mg IV ASDIRECTED [facility]; Protocol Last Admin: 08/30/19 01:35 Dose: 30 mg Ondansetron HCl (Zofran) 4 mg IVPUSH ONETIME ONE Stop: 08/29/19 18:13 Last Admin: 08/29/19 18:21 Dose: 4 mg Ondansetron HCl (Zofran) Confirm Administered Dose 4 mg .ROUTE .STK-MED ONE Stop: 08/29/19 21:10 Ondansetron HCl (Zofran) 4 mg IVPUSH Q6H PRN PRN Reason: Nausea/Vomiting Propofol (Diprivan 20 Ml) Confirm Administered Dose 200 mg .ROUTE .STK-MED ONE Stop: 08/29/19 21:09 Rocuronium [place] (Zemuron) Confirm Administered Dose 100 mg .ROUTE .STK-MED ONE Stop: 08/29/19 21:10 Sugammadex Sodium (Bridion) Confirm Administered Dose 200 mg .ROUTE .STK-MED ONE Stop: 08/29/19 22:12 - Exam General: Alert, Oriented, Cooperative, No Acute Distress Lungs: Decreased Breath Sounds (diminished to the bases, though inspiratory effort is poor), Wheezing (scant upper wheezes heard) Cardiovascular: Regular Rate, Regular Rhythm, No Murmurs GI/Abdominal Exam: Soft, Tender. No: Normal Bowel Sounds (hypoactive) Extremities: Normal Inspection, Normal Range of Motion, Pedal Edema (+1 edema) Wound/Incisions: Dressing Dry and Intact, Other (GERMAN drain in place) Psy/Mental Status: Alert, Normal Affect, Normal Mood Sepsis Event Note - Evaluation Sepsis Screening Result: Sepsis Risk - Focused Exam Vital Signs: Vital Signs Temp Resp BP Pulse Ox Pulse Ox 09/01/19 07:00 21 H 112/57 L 93 L 09/01/19 06:00 26 H 120/63 94 L 09/01/19 05:00 30 H 127/57 L 93 L 93 L 09/01/19 04:00 98.2 F 26 H 123/65 94 L 09/01/19 03:00 22 H 109/54 L 95 09/01/19 02:00 26 H 101/52 L 94 L 09/01/19 01:00 26 H 108/52 L 95 09/01/19 00:00 98.5 F 25 H 113/47 L 95 08/31/19 23:00 25 H 99/51 L 95 08/31/19 22:00 25 H 110/63 100 08/31/19 21:00 21 H 105/49 L 93 L 08/31/19 20:00 98 F 21 H 103/60 93 L Date Exam was Performed: 09/01/19 Time Exam was Performed: 12:05 Consult PN Assessment/Plan POD#: 4 Procedures: Procedures ASSAY OF FREE THYROXINE (02/21/16) ASSAY THYROID STIM HORMONE (02/21/16) COMPLETE CBC W/AUTO DIFF WBC (02/21/16) COMPREHEN METABOLIC PANEL (02/21/16) IMMUNIZATION ADMIN (05/24/17) LIPID PANEL (02/21/16) OFFICE/OUTPATIENT VISIT NEW (05/24/17) ROUTINE VENIPUNCTURE (02/21/16) TD VACC NO PRESV 7 YRS+ IM (05/24/17) (1) Acute appendicitis SNOMED Code(s): 90852365 Code(s): K35.80 - UNSPECIFIED ACUTE APPENDICITIS Current Visit: Yes Qualifiers: Acute appendicitis type: unspecified acute appendicitis type Qualified Code (s): K35.80 - Unspecified acute appendicitis (2) Hypothyroidism SNOMED Code(s): 42272907 Code(s): E03.9 - HYPOTHYROIDISM, UNSPECIFIED Priority: Low Current Visit : Yes Qualifiers: Hypothyroidism type: unspecified Qualified Code(s): E03.9 - Hypothyroidism , unspecified (3) UTI (urinary tract infection) SNOMED Code(s): 97692969 Code(s): N39.0 - URINARY TRACT INFECTION, SITE NOT SPECIFIED Current Visit : Yes (4) Septic shock SNOMED Code(s): 42317814 Code(s): A41.9 - SEPSIS, UNSPECIFIED ORGANISM; R65.21 - SEVERE SEPSIS WITH SEPTIC SHOCK Current Visit: Yes Problem List Initiated/Reviewed/Updated: Yes My Orders Last 24 Hours: My Active Orders 08/31/19 13:58 Morphine 3 mg IVPUSH Q4H PRN 09/02/19 05:11 MAGNESIUM [CHEM] AM Plan: This 74 year old admitted with sepsis, rupture appendicitis with intraabdominal abscess 1. Sepsis, rupture appendicitis with intraabdominal abscess, sepsis resolved. - Norepinephrine gtt, weaned off again this am. BP improved. Monitor closely. - Saline lock for now. Monitor - CXR obtained due to dyspnea. Atelectasis noted, encourage hourly IS and CDB. Teach splinting to improve compliance. - Continue Zosyn and Flagyl - BC negative x2 days - PO narcotics, BUILDING ATTENDANT discontinued. - Pain control per surgery, BUILDING ATTENDANT in place currently. pain controlled. 2. UTI - E coli, pansensitive - Continue Zosyn 3. Hypothyroidism - Continue Synthroid VTE prophylaxis: Heparin subcut Treatment plan discussed with Dr Merino and he is in agreement.
--- NOTE | 2019-09-01 08:35 | CR ---
Chest: Portable view of the chest was obtained. Comparison: Prior chest x-ray of 08/30/19. Hiatal hernia is noted behind the heart. Slight atelectasis is noted within both lung bases. Lungs otherwise are clear. Poor inspiratory effort is noted. Heart size and mediastinum are unchanged. Bony structures are grossly intact. Impression: 1. Mild bibasilar atelectasis again seen. Hiatal hernia is noted. 2. Poor inspiratory effort. Nothing acute is otherwise seen. Diagnostic code #2 This report was dictated in MDT
[2019-09-01] MEDS: Sertraline 100 MG Tab PO SCH (09:55)
--- NOTE | 2019-09-01 10:21 | PN ---
THC Physician - Brief Progress [id number]/22/2020 10:20[facility] Aide Lea [place] - MWN (ALMN) - MWN LUIS ADELE BritDate of Service 09/01/2019 10:20HPI/Events of Note eICU Progress [id number] admitted for appendicitis and septic shock. History obtained primarily fr om review of EMR.Camera exam: Patient sitting up in chair. Vitals monitor reviewed.Labs: reviewedRadi ology: reviewedeICU Impression and Recommendations:Septic shock differential including appendicitis, E. coli UTIAgree with use of norepinephrine for vasopressor support as needed to maintain MAP target of >65mmHgContinue antibiotic therapyStatus post abdominal surgeryIncentive spirometry q1h while awak e, to target goal for patientxs heightPain control per primary and surgical services, we are availabl e to assist if desiredPhysical therapy evaluation, taking patient out of bed to chair, and ambulation initiation per primary and surgical servicesDefer diet to surgical serviceDVT and GI prophylaxis as appropriate.Thank you for allowing us to participate in the care of this patient.The above note trans cribed with the assistance of dictation software. Please excuse any errors.Interventions Major-Sepsis - evaluation and management, Shock - evaluation and management
[2019-09-01] MEDS: Albuterol/Ipratropium 3.0-0.5 MG/3 ML Neb Soln NEB SCH ×4 (10:31→17:46)
--- NOTE | 2019-09-01 13:27 | PCM.SURGPN ---
- General Info Date of Service: 09/01/19 POD#: 3 Post-Op Diagnosis: Ruptured appendicitis Functional Status: Reports: Pain Controlled, Tolerating Diet, Ambulating, Urinating, Incentive Spirometry - Review of Systems General: Reports: Weakness, Appetite. Denies: Fever, Fatigue, Malaise, Chills, Night Sweats HEENT: Reports: No Symptoms Pulmonary: Denies: Shortness of Breath, Pleuritic Chest Pain, Cough, Wheezing Cardiovascular: Denies: Chest Pain Gastrointestinal: Reports: Abdominal Pain (Incisional), Flatus. Denies: Diarrhea, Nausea, Vomiting Genitourinary: Denies: Dysuria, Frequency, Burning Musculoskeletal: Reports: No Symptoms Skin: Denies: Cyanosis, Jaundice, Mottled, Pallor Neurological: Denies: Confusion, Dizziness Psychiatric: Denies: Confusion, Depression - Patient Data Vitals - Most Recent: Last Vital Signs Temp 97.9 F 09/01/19 08:00 Pulse 89 08/30/19 10:00 Resp 25 H 09/01/19 10:00 BP 145/86 H 09/01/19 10:00 Pulse Ox 92 L 09/01/19 10:00 Weight - Most Recent: 215 lb 13.321 oz I&O - Last 24 Hours: Intake & Output 09/01/19 09/01/19 09/01/19 03:59 11:59 19:59 Intake Total 100 2932 Output Total 1020 Balance 100 1912 Lab Results Last 24 Hrs: Laboratory Results - last 24 hr 08/31/19 09/01/19 09/01/19 Range/Units 14:13 06:24 06:24 WBC 12.42 H (4.0-11.0) K/uL RBC 3.58 L (4.30-5.90) M/uL Hgb 9.5 L (12.0-16.0) g/dL Hct 29.2 L (36.0-46.0) % MCV 81.6 (80.0-98.0) fL MCH 26.5 L (27.0-32.0) pg MCHC 32.5 (31.0-37.0) g/dL RDW Std Deviation 46.7 (28.0-62.0) fl RDW Coeff of Gibran 16 H (11.0-15.0) % Plt Count 404 H (150-400) K/uL MPV 9.70 (7.40-12.00) fL Neutrophils % (Manual) 82 H (48.0-80.0) % Lymphocytes % (Manual) 13 L (16.0-40.0) % Monocytes % (Manual) 4 (0.0-15.0) % Eosinophils % (Manual) 1 (0.0-7.0) % Nucleated RBC % 0.0 /100WBC Absolute Seg Neuts 10.2 H (1.4-5.7) Lymphocytes # (Manual) 1.6 (0.6-2.4) Monocytes # (Manual) 0.5 (0.0-0.8) Eosinophils # (Manual) 0.1 (0.0-0.7) Lactate 0.7 (0.20-2.00) mmol/L Sodium 134 L (136-145) mmol/L Potassium 3.2 L (3.5-5.1) mmol/L Chloride 102 (98-107) mmol/L Carbon Dioxide 25.6 (21.0-32.0) mmol/L BUN 12 (7.0-18.0) mg/dL Creatinine 0.7 (0.6-1.0) mg/dL Est Cr Clr Drug Dosing 56.12 mL/min Estimated GFR (MDRD) > 60.0 ml/min Glucose 125 H (74-106) mg/dL Calcium 7.9 L (8.5-10.1) mg/dL Magnesium 1.8 (1.8-2.4) mg/dL Gianfranco Results Last 24 Hrs: Microbiology 08/29/19 19:10 Aerobic Blood Culture - Preliminary Blood - Venous - Lab Draw NO GROWTH AFTER 2 DAYS Anaerobic Blood Culture - Preliminary NO GROWTH AFTER 2 DAYS 08/29/19 19:40 Aerobic Blood Culture - Preliminary Blood - Venous NO GROWTH AFTER 2 DAYS Anaerobic Blood Culture - Preliminary NO GROWTH AFTER 2 DAYS Med Orders - Current: Current Medications Acetaminophen (Tylenol) 325 mg PO Q4H PRN PRN Reason: Fever Greater Than 101 Hydrocodone Bitart/Acetaminophen (Starkweather 325-5 Mg) 1 - 2 tab PO Q4H PRN PRN Reason: Pain (moderate 4-6) Last Admin: 09/01/19 05:24 Dose: 1 tab Albuterol/Ipratropium (Duoneb 3.0-0.5 Mg/3 Ml) 3 ml NEB Q6HRRT [facility] Last Admin: 09/01/19 12:15 Dose: Not Given Diphenhydramine HCl (Benadryl) 25 mg IVPUSH Q6H PRN PRN Reason: Itching Diphenhydramine HCl (Benadryl) 25 mg PO Q6H PRN PRN Reason: Itching Heparin Sodium (Porcine) (Heparin Sodium) 5,000 units SUBCUT Q8H [facility] Last Admin: 09/01/19 09:55 Dose: 5,000 units Piperacillin Sod/Tazobactam (Sod 3.375 gm/ Sodium Chloride) 50 mls @ 100 mls/ hr IV Q6H [facility] Last Admin: 09/01/19 13:07 Dose: 100 mls/hr Metronidazole 500 mg/ Premix 100 mls @ 100 mls/hr IV QID [facility] Last Admin: 09/01/19 13:07 Dose: 100 mls/hr Lactated Ringer's (Ringers, Lactated) 1,000 mls @ 999 mls/hr IV BOLUS [facility] Last Admin: 08/30/19 04:06 Dose: 999 mls/hr Norepinephrine Bitartrate (Norepinephr-0.9% Nacl 4 Mg/250) 4 mg in 250 mls @ 7.5 mls/hr IV TITRATE [facility]; Protocol Last Titration: 09/01/19 03:30 Dose: 0 mcg/min, 0 mls/hr Levothyroxine Sodium (Synthroid) 88 mcg PO ACBREAKFAST [facility] Last Admin: 09/01/19 06:41 Dose: 88 mcg Metoclopramide HCl (Reglan) 10 mg IV Q6H [facility] Last Admin: 09/01/19 13:08 Dose: 10 mg Morphine Sulfate (Morphine) 3 mg IVPUSH Q4H PRN PRN Reason: Pain Naloxone HCl (Narcan) 0.04 mg IVPUSH Q3M PRN PRN Reason: Respiratory Depression Ondansetron HCl (Zofran) 4 mg IVPUSH Q6H PRN PRN Reason: Nausea/Vomiting Sertraline HCl (Zoloft) 100 mg PO DAILY [facility] Last Admin: 09/01/19 09:55 Dose: 100 mg Sodium Chloride (Saline Flush) 10 ml FLUSH ASDIRECTED PRN PRN Reason: Keep Vein Open Sodium Chloride (Saline Flush) 2.5 ml FLUSH ASDIRECTED PRN PRN Reason: Keep Vein Open Discontinued Medications Bupivacaine HCl (Marcaine 0.5%) Confirm Administered Dose 30 ml .ROUTE .STK-MED ONE Stop: 08/29/19 21:11 Cefazolin Sodium (Ancef) Confirm Administered Dose 1 gm .ROUTE .STK-MED ONE Stop: 08/29/19 21:11 Cefazolin Sodium (Ancef) Confirm Administered Dose 1 gm .ROUTE .STK-MED ONE Stop: 08/29/19 22:47 Enoxaparin Sodium (Lovenox) 85 mg 1 mg/kg (85 mg) SUBCUT DAILY [facility] Fentanyl (Sublimaze) Confirm Administered Dose 250 mcg .ROUTE .STK-MED ONE Stop: 08/29/19 21:09 Fentanyl (Sublimaze) 50 mcg IVPUSH Q5M PRN PRN Reason: Pain Fentanyl (Sublimaze) Confirm Administered Dose 250 mcg .ROUTE .STK-MED ONE Stop: 08/29/19 22:53 Glycopyrrolate (Robinul) Confirm Administered Dose 0.2 mg .ROUTE .STK-MED ONE Stop: 08/29/19 21:10 Sodium Chloride (Normal Saline) 1,000 mls @ 1,000 mls/hr IV .Bolus ONE Stop: 08/29/19 19:49 Last Admin: 08/29/19 18:57 Dose: 1,000 mls/hr Piperacillin Sod/Tazobactam (Sod 3.375 gm/ Sodium Chloride) 50 mls @ 100 mls/ hr IV ONETIME ONE Stop: 08/29/19 19:25 Last Admin: 08/29/19 19:04 Dose: 100 mls/hr Lactated Ringer's (Ringers, Lactated) 1,000 mls @ 125 mls/hr IV ASDIRECTED [facility] Last Admin: 08/29/19 21:07 Dose: 125 mls/hr Acetaminophen 1,000 mg/ Premix 100 mls @ 400 mls/hr IV Q6H PRN PRN Reason: Pain Metronidazole 500 mg/ Premix 100 mls @ 100 mls/hr IV ONETIME ONE Stop: 08/30/19 00:21 Last Admin: 08/30/19 01:08 Dose: Not Given Metronidazole 500 mg/ Premix 100 mls @ 100 mls/hr IV ONETIME ONE Stop: 08/30/19 00:24 Last Admin: 08/30/19 12:38 Dose: Not Given Metronidazole (Flagyl 500 Mg In Ns 100 Ml) Confirm Administered Dose 200 mls @ as directed .ROUTE .K-MED ONE Stop: 08/29/19 23:26 Last Admin: 08/30/19 01:08 Dose: Not Given Lactated Ringer's (Ringers, Lactated) 1,000 mls @ 125 mls/hr IV ASDIRECTED [facility] Last Admin: 08/31/19 01:46 Dose: 175 mls/hr Acetaminophen (Ofirmev) Confirm Administered Dose 100 mls @ as directed .ROUTE .[facility]-MED ONE Stop: 08/30/19 00:25 Albumin Human (Buminate 5%) 250 mls @ 500 mls/hr IV ASDIRECTED [facility] Albumin Human (Buminate 5%) 250 mls @ 500 mls/hr IV ONETIME ONE Stop: 08/30/19 06:44 Last Admin: 08/30/19 06:18 Dose: 500 mls/hr Sodium Chloride (Normal Saline) 1,000 mls @ 999 mls/hr IV .Bolus ONE Stop: 08/30/19 14:14 Last Admin: 08/30/19 13:27 Dose: 999 mls/hr Magnesium Sulfate 2 gm/ Premix 50 mls @ 50 mls/hr IV ONETIME ONE Stop: 08/30/19 14:42 Last Admin: 08/30/19 13:59 Dose: 50 mls/hr Lactated Ringer's (Ringers, Lactated) 1,000 mls @ 100 mls/hr IV ASDIRECTED [facility] Last Admin: 08/31/19 11:44 Dose: 100 mls/hr Lactated Ringer's (Ringers, Lactated) 1,000 mls @ 999 mls/hr IV ONETIME ONE Stop: 08/31/19 09:22 Last Admin: 08/31/19 08:29 Dose: 999 mls/hr Lactated Ringer's (Ringers, Lactated) 1,000 mls @ 999 mls/hr IV .BOLUS ONE Stop: 08/31/19 15:52 Last Admin: 08/31/19 14:55 Dose: 999 mls/hr Lactated Ringer's (Ringers, Lactated) 1,000 mls @ 150 mls/hr IV Q6H [facility] Last Admin: 09/01/19 03:21 Dose: 150 mls/hr Iopamidol (Isovue-370 (76%)) 100 ml IVPUSH ONETIME STA Stop: 08/29/19 19:44 Last Admin: 08/29/19 19:44 Dose: 100 ml Ketorolac Tromethamine (Toradol) Confirm Administered Dose 30 mg .ROUTE .STK- MED ONE Stop: 08/29/19 21:10 Lidocaine (Xylocaine-Mpf 2%) Confirm Administered Dose 5 ml .ROUTE .STK-MED ONE Stop: 08/29/19 21:10 Midazolam HCl (Versed 1 Mg/Ml) Confirm Administered Dose 2 mg .ROUTE .STK-MED ONE Stop: 08/29/19 21:09 Morphine Sulfate (Morphine) 6 mg IVPUSH ONETIME ONE Stop: 08/29/19 18:13 Last Admin: 08/29/19 18:23 Dose: 6 mg Morphine Sulfate (Morphine Stoper 30 Mg In 30 Ml) 0 mg IV ASDIRECTED [facility]; Protocol Last Admin: 08/30/19 01:35 Dose: 30 mg Ondansetron HCl (Zofran) 4 mg IVPUSH ONETIME ONE Stop: 08/29/19 18:13 Last Admin: 08/29/19 18:21 Dose: 4 mg Ondansetron HCl (Zofran) Confirm Administered Dose 4 mg .ROUTE .STK-MED ONE Stop: 08/29/19 21:10 Ondansetron HCl (Zofran) 4 mg IVPUSH Q6H PRN PRN Reason: Nausea/Vomiting Propofol (Diprivan 20 Ml) Confirm Administered Dose 200 mg .ROUTE .STK-MED ONE Stop: 08/29/19 21:09 Rocuronium Loma (Zemuron) Confirm Administered Dose 100 mg .ROUTE .STK-MED ONE Stop: 08/29/19 21:10 Sugammadex Sodium (Bridion) Confirm Administered Dose 200 mg .ROUTE .STK-MED ONE Stop: 08/29/19 22:12 - Exam Wound/Incisions: Other (Dressing changed and packing removed. The subcutaneous tissue is clean and dry. There was no purulent drainage noted. The wound was repacked with 2 inch Michelle moistened with saline.) Quality Assessment: Supplemental Oxygen. No: Central Line/PICC, Urine Catheter General: Alert, Oriented, Cooperative, Mild Distress HEENT: Pupils Equal, Pupils Reactive. No: Scleral Icterus Neck: Supple Lungs: Clear to Auscultation, Normal Respiratory Effort. No: Wheezing Cardiovascular: Regular Rate, Regular Rhythm GI/Abdominal Exam: Soft, Non-Tender, No Distention, Abnormal Bowel Sounds ( Hypoactive). No: Guarding, Rigid, Rebound Extremities: Normal Inspection Skin: Warm, Dry, Intact Neurological: No New Focal Deficit Psy/Mental Status: Alert, Normal Affect, Normal Mood Sepsis Event Note - Evaluation Sepsis Screening Result: Sepsis Risk - Focused Exam Vital Signs: Vital Signs Temp Resp BP Pulse Ox Pulse Ox 09/01/19 10:00 25 H 145/86 H 92 L 09/01/19 09:00 29 H 125/65 88 L 09/01/19 08:00 97.9 F 28 H 124/63 92 L 09/01/19 07:00 21 H 112/57 L 93 L 09/01/19 06:00 26 H 120/63 94 L 09/01/19 05:00 30 H 127/57 L 93 L 93 L 09/01/19 04:00 98.2 F 26 H 123/65 94 L 09/01/19 03:00 22 H 109/54 L 95 09/01/19 02:00 26 H 101/52 L 94 L Date Exam was Performed: 09/01/19 Time Exam was Performed: 13:23 - Problem List & Annotations (1) Right lower quadrant abdominal pain SNOMED Code(s): 748569486 Code(s): R10.31 - RIGHT LOWER QUADRANT PAIN Status: Acute Priority: High Current Visit: Yes (2) Loss of appetite SNOMED Code(s): 46902643 Code(s): R63.0 - ANOREXIA Status: Acute Priority: High Current Visit: Yes (3) Appendicitis SNOMED Code(s): 11449727 Code(s): K37 - UNSPECIFIED APPENDICITIS Status: Acute Priority: High Current Visit: Yes Qualifiers: Appendicitis type: acute appendicitis Acute appendicitis type: with generalized peritonitis Appendicitis gangrene presence: without gangrene Appendicitis perforation presence: with perforation Appendicitis abscess presence: with abscess Qualified Code(s): K35.21 - Acute appendicitis with generalized peritonitis, with abscess (4) Hypothyroidism SNOMED Code(s): 32254930 Code(s): E03.9 - HYPOTHYROIDISM, UNSPECIFIED Status: Acute Priority: Low Current Visit: Yes Qualifiers: Hypothyroidism type: unspecified Qualified Code(s): E03.9 - Hypothyroidism , unspecified (5) Depression SNOMED Code(s): 29383421 Code(s): F32.9 - MAJOR DEPRESSIVE DISORDER, SINGLE EPISODE, UNSPECIFIED Status: Acute Priority: Low Current Visit: Yes Qualifiers: Major depression recurrence: unspecified whether recurrent Active/ Remission status: remission status unspecified - Problem List Review Problem List Initiated/Reviewed/Updated: Yes - My Orders Last 24 Hours: Active Orders 24 hr Category Date Time Status Transfer Patient (Change bed) [ADT] Routine ADT 09/01/19 13:20 Ordered RT Aerosol Therapy [RC] ASDIRECTED Care 09/01/19 08:56 Active Consult to Physical Therapy [PT Evaluation and Cons 09/01/19 09:41 Active Treatment] [CONS] Routine Regular Diet [DIET] Diet 09/01/19 Dinner Ordered BMP [BASIC METABOLIC PANEL,BMP] [CHEM] AM Lab 09/02/19 05:11 Ordered CBC WITH AUTO DIFF [HEME] AM Lab 09/02/19 05:11 Ordered MAGNESIUM [CHEM] AM Lab 09/02/19 05:11 Ordered Albuterol/Ipratropium [DuoNeb 3.0-0.5 MG/3 ML] Med 09/01/19 08:56 Active 3 ml NEB Q6HRRT Morphine Med 08/31/19 13:58 Active 3 mg IVPUSH Q4H PRN Medication Orders Acetaminophen (Tylenol) 325 mg PO Q4H PRN PRN Reason: Fever Greater Than 101 Hydrocodone Bitart/Acetaminophen (Starkweather 325-5 Mg) 1 - 2 tab PO Q4H PRN PRN Reason: Pain (moderate 4-6) Last Admin: 09/01/19 05:24 Dose: 1 tab Admin: 08/31/19 17:50 Dose: 1 tab Admin: 08/31/19 11:55 Dose: 1 tab Albuterol/Ipratropium (Duoneb 3.0-0.5 Mg/3 Ml) 3 ml NEB Q6HRRT [facility] Last Admin: 09/01/19 12:15 Dose: Not Given Admin: 05/22/20 10:48 Dose: 3 ml Admin: 09/01/19 10:31 Dose: 3 ml Diphenhydramine HCl (Benadryl) 25 mg IVPUSH Q6H PRN PRN Reason: Itching Diphenhydramine HCl (Benadryl) 25 mg PO Q6H PRN PRN Reason: Itching Heparin Sodium (Porcine) (Heparin Sodium) 5,000 units SUBCUT Q8H [facility] Last Admin: 09/01/19 09:55 Dose: 5,000 units Admin: 09/01/19 01:09 Dose: 5,000 units Admin: 08/31/19 17:07 Dose: 5,000 units Admin: 08/31/19 08:46 Dose: 5,000 units Admin: 08/31/19 01:13 Dose: 5,000 units Admin: 08/30/19 17:38 Dose: 5,000 units Admin: 08/30/19 09:42 Dose: 5,000 units Piperacillin Sod/Tazobactam (Sod 3.375 gm/ Sodium Chloride) 50 mls @ 100 mls/ hr IV Q6H [facility] Last Admin: 09/01/19 13:07 Dose: 100 mls/hr Infusion: 09/01/19 07:07 Dose: 100 mls/hr Admin: 09/01/19 06:37 Dose: 100 mls/hr Infusion: 09/01/19 00:30 Dose: 100 mls/hr Admin: 09/01/19 00:00 Dose: 100 mls/hr Infusion: 08/31/19 18:19 Dose: 100 mls/hr Admin: 08/31/19 17:49 Dose: 100 mls/hr Infusion: 08/31/19 12:52 Dose: 100 mls/hr Admin: 08/31/19 12:22 Dose: 100 mls/hr Infusion: 08/31/19 06:19 Dose: 100 mls/hr Admin: 08/31/19 05:49 Dose: 100 mls/hr Infusion: 08/31/19 01:33 Dose: 100 mls/hr Admin: 08/31/19 01:03 Dose: 100 mls/hr Infusion: 08/30/19 19:09 Dose: 100 mls/hr Admin: 08/30/19 18:39 Dose: 100 mls/hr Infusion: 08/30/19 13:28 Dose: 100 mls/hr Admin: 08/30/19 12:58 Dose: 100 mls/hr Infusion: 08/30/19 07:39 Dose: 100 mls/hr Admin: 08/30/19 07:09 Dose: 100 mls/hr Infusion: 08/30/19 02:26 Dose: 100 mls/hr Admin: 08/30/19 01:56 Dose: 100 mls/hr Metronidazole 500 mg/ Premix 100 mls @ 100 mls/hr IV QID [facility] Last Admin: 09/01/19 13:07 Dose: 100 mls/hr Infusion: 09/01/19 06:19 Dose: 100 mls/hr Admin: 09/01/19 05:19 Dose: 100 mls/hr Infusion: 09/01/19 02:07 Dose: 100 mls/hr Admin: 09/01/19 01:07 Dose: 100 mls/hr Infusion: 08/31/19 18:49 Dose: 100 mls/hr Admin: 08/31/19 17:49 Dose: 100 mls/hr Infusion: 08/31/19 13:22 Dose: 100 mls/hr Admin: 08/31/19 12:22 Dose: 100 mls/hr Infusion: 08/31/19 06:48 Dose: 100 mls/hr Admin: 08/31/19 05:48 Dose: 100 mls/hr Infusion: 08/31/19 00:59 Dose: 100 mls/hr Admin: 08/30/19 23:59 Dose: 100 mls/hr Infusion: 08/30/19 18:41 Dose: 100 mls/hr Admin: 08/30/19 17:41 Dose: 100 mls/hr Infusion: 08/30/19 12:45 Dose: 100 mls/hr Admin: 08/30/19 11:45 Dose: 100 mls/hr Infusion: 08/30/19 06:54 Dose: 100 mls/hr Admin: 08/30/19 05:54 Dose: 100 mls/hr Lactated Ringer's (Ringers, Lactated) 1,000 mls @ 999 mls/hr IV BOLUS [facility] Last Admin: 08/30/19 04:06 Dose: 999 mls/hr Infusion: 08/30/19 04:06 Dose: 999 mls/hr Admin: 08/30/19 03:39 Dose: 999 mls/hr Norepinephrine Bitartrate (Norepinephr-0.9% Nacl 4 Mg/250) 4 mg in 250 mls @ 7.5 mls/hr IV TITRATE [facility]; Protocol Last Titration: 09/01/19 03:30 Dose: 0 mcg/min, 0 mls/hr Titration: 08/31/19 23:43 Dose: 1 mcg/min, 3.75 mls/hr Admin: 08/31/19 17:06 Dose: 2 mcg/min, 7.5 mls/hr Titration: 08/31/19 17:06 Dose: 2 mcg/min, 7.5 mls/hr Titration: 08/31/19 14:35 Dose: 2 mcg/min, 7.5 mls/hr Titration: 08/31/19 14:25 Dose: 1 mcg/min, 3.75 mls/hr Titration: 08/31/19 04:00 Dose: 0 mcg/min, 0 mls/hr Titration: 08/31/19 02:45 Dose: 1 mcg/min, 3.75 mls/hr Titration: 08/31/19 00:35 Dose: 2 mcg/min, 7.5 mls/hr Titration: 08/30/19 08:14 Dose: 3 mcg/min, 11.25 mls/hr Admin: 08/30/19 06:57 Dose: 2 mcg/min, 7.5 mls/hr Levothyroxine Sodium (Synthroid) 88 mcg PO ACBREAKFAST [facility] Last Admin: 09/01/19 06:41 Dose: 88 mcg Admin: 08/31/19 06:29 Dose: 88 mcg Metoclopramide HCl (Reglan) 10 mg IV Q6H [facility] Last Admin: 09/01/19 13:08 Dose: 10 mg Admin: 09/01/19 06:37 Dose: 10 mg Admin: 09/01/19 00:40 Dose: 10 mg Admin: 08/31/19 17:50 Dose: 10 mg Admin: 08/31/19 12:22 Dose: 10 mg Admin: 08/31/19 05:48 Dose: 10 mg Admin: 08/30/19 23:57 Dose: 10 mg Admin: 08/30/19 18:33 Dose: 10 mg Admin: 05/20/20 11:51 Dose: 10 mg Admin: 08/30/19 06:02 Dose: 10 mg Admin: 08/30/19 01:38 Dose: 10 mg Morphine Sulfate (Morphine) 3 mg IVPUSH Q4H PRN PRN Reason: Pain Naloxone HCl (Narcan) 0.04 mg IVPUSH Q3M PRN PRN Reason: Respiratory Depression Ondansetron HCl (Zofran) 4 mg IVPUSH Q6H PRN PRN Reason: Nausea/Vomiting Sertraline HCl (Zoloft) 100 mg PO DAILY [facility] Last Admin: 09/01/19 09:55 Dose: 100 mg Admin: 08/31/19 08:46 Dose: 100 mg Admin: 08/30/19 09:43 Dose: 100 mg Sodium Chloride (Saline Flush) 10 ml FLUSH ASDIRECTED PRN PRN Reason: Keep Vein Open Sodium Chloride (Saline Flush) 2.5 ml FLUSH ASDIRECTED PRN PRN Reason: Keep Vein Open - Assessment Assessment (Free Text/Narrative):: Patient does remain stable. She has mild Hypokalemia today. We will recheck labs tomorrow. She may need potassium supplementation. The dressings were removed and the packing changed. The wound itself appears clean and dry. No purulent drainage was noted. No malodorous material was present. - Plan Plan (Free Text/Narrative):: We'll transfer to telemetry unit and move out of the intensive care unit. Advance to regular diet. Labs ordered for morning.
[2019-09-01] MEDS ORDERED: Potassium Chloride 20 MEQ Tab.ER PO ONE (14:15)
[2019-09-01] MEDS ORDERED: Albuterol 0.083% 2.5 MG/3 ML Neb Soln NEB ONE (20:33)
--- NOTE | 2019-09-01 21:00 | CR ---
Chest: Portable view of the chest was obtained. Comparison: Prior chest x-ray of 09/01/19. Poor inspiratory effort is noted. Hiatal hernia is noted. Minimal atelectasis is noted within the upper right lung. Lungs otherwise are clear. Bony structures show some slight degenerative change throughout the spine. Impression: 1. Slight atelectasis within the right upper lung. 2. Hiatal hernia. 3. Nothing acute is otherwise seen. Diagnostic code #2 This report was dictated in MDT
[2019-09-01 21:03] LABS: BLOOD UREA NITROGEN,BUN 13 mg/dL (7.0-18.0); CARBON DIOXIDE,CO2 21.5 mmol/L (21.0-32.0); CHLORIDE,CL 100 mmol/L (98-107); GLUCOSE RANDOM 211 mg/dL (74-106); POTASSIUM,K 3.9 mmol/L (3.5-5.1); SODIUM,NA 134 mmol/L (136-145)
--- NOTE | 2019-09-01 21:20 | PCM.SN.2 ---
- Free Text/Narrative Note: Called by nursing staff after Rapid Response called. Patient found to be tachycardic with heart rate in the 140's and she was complaining of inability to get her breath. She is on POD 3 following an open appendectomy for a ruptured appendix of about 5 days duration. She was started on chemical DVT prophylaxis about 12 hours after surgery and had been on mechanical prophylaxis since surgery. Upon my evaluation, she was denying any chest pain. She stated her breathing was much better and she was denying any abdominal pain. Heart was RRR without a murmur. Lung sounds reveals bilateral crackles bilaterally. Abdomen was soft and nontender. Hypoactive bowel sounds. RLQ dressing was dry. Scott drain continues to show serous drainage w/o purulent drainage. Laboratory studies tonight now show a lactate of 3.0, had been 0.7 yesterday. WBC now up to 24K from 12K today. Critical value for her troponin was called tonight and is 0.109. D-dimer has been ordered and isn't back as of this writing. EKG showed a sinus tachycardia. IMPRESSION: Significant change in her cardiac status tonight with tachycardia, shortness of breath and elevated troponin along with new onset leucocytosis and elevated lactate. Differential diagnosis includes cardiac event, pulmonary embolus and possible sepsis. At this point I think she would benefit from transfer to a larger facility with more robust critical care support. If D-dimer is positive, definitely consider DVT/PE in the differential. Given her ruptured appendix with abscess, despite double antibiotic coverage, sepsis is also a concern. Urine C&S did also grow E. coli showed UTI is also a consideration. Appreciate Dr. Merino's assistance.
--- NOTE | 2019-09-01 21:24 | PCM.SN.2 ---
- Free Text/Narrative Note: D-dimer result just returned. Is 15.55. Will discuss with Dr. Merino re CT here or transfer to a larger facility first.
[2019-09-01] MEDS ORDERED: Aspirin 325 MG Tab PO STA (21:38)
[2019-09-01] MEDS ORDERED: Iopamidol 755 Mg/ML 100 ML Bottle IVPUSH ONE (22:20)
--- NOTE | 2019-09-01 22:58 | CT ---
INDICATION: Shortness of breath, elevated D-dimer and leukocytosis. TECHNIQUE: CT chest PE was acquired with 100 cc Isovue 370 intravenous contrast. COMPARISON: None. FINDINGS: Heart and vasculature: Contrast opacification of the pulmonary arterial tree is adequate. No sign of pulmonary embolism. Thoracic aorta is normal in caliber with mild atherosclerotic calcification. Mild coronary atherosclerosis. Lungs and pleural: Small right and trace left pleural effusion. Bandlike areas of atelectasis with bilateral lower lobe consolidation. Lymph nodes/mediastinum: No enlarged mediastinal lymph nodes. Moderate size hiatal hernia with fluid in the distal esophagus. Chest wall: No masses. Upper abdomen: Moderate size hiatal hernia. Minimal hepatic calcification. Distended small bowel loops within the upper abdomen suggestive of a small-bowel obstruction. Distended gallbladder without gina gallbladder wall thickening. Drain partially included along the right pericolic gutter. Bones: Unremarkable for age. IMPRESSION: 1. No evidence of pulmonary embolus. 2. Small right and trace left pleural effusions with bilateral lower lobe consolidation, likely dependent atelectasis. 3. Dilated small bowel loops in the upper abdomen suggesting small-bowel obstruction. 4. Moderate-sized hiatal hernia with fluid in the distal esophagus suggesting gastroesophageal reflux. Please note that all CT scans at this facility use dose modulation, iterative reconstruction, and/or weight-based dosing when appropriate to reduce radiation dose to as low as reasonably achievable. Dictated by Mike Choe MD @ Sep 01 2019 10:46PM Signed by Dr. Mike Choe @ Sep 01 2019 10:56PM
[2019-09-01] MEDS ORDERED: Heparin Sod,Pork In 0.45% Nacl 25,000 UNIT/500 ML IV.SOLN IV SCH (23:15)
--- NOTE | 2019-09-01 23:29 | PCM.SN.2 ---
- Free Text/Narrative Note: Patient sridhar had an episode of shortness of breath. Nurses reported patient was gasping for breath and desated to the 80s. She had a heart rate of 140 and BP of 180/121. She was placed on 10 liters of oxygen and given an albuterol neb. Repeat lab work showed a white count of 24,600, lactic acid of 3.0, troponin of 0.109 and d-dimer of 15. CT PE scan was negative for PE. EKG showed sinus tachycardia of HR of 109, Telemetry showed sinus tachycardia with peak HR of 140 when she was symptomatic. Repeat Troponin reported a rise to 0.383. I spoke with Dr. Cavazos who did not think anything acutely surgical caused her distress but felt the patient needed to be transferred. He felt the recent surgery was not a contraindication for heparin drip to treat a possible NSTEMI. Patient's symptoms did resolve and her vital signs stabilized. Patient was given aspirin and started on heparin drip. [facility] was called and Dr. Ortiz has accepted the patient.
[2019-09-01] MEDS ORDERED: Heparin Sodium 5,000 Units/ML Vial IVPUSH ONE ×2 (23:31→23:48)
[2019-09-01] MEDS ORDERED: Sodium Chloride 0.9% 1,000 ML IV SCH (23:45)
--- NOTE | 2019-09-02 09:08 | PCM.DCSUM1 ---
Discharge Summary - Hospital Course Free Text/Narrative:: Patient is a 74-year-old female who was admitted on August 28 with abdominal pain and found have a ruptured appendicitis. She had been having symptoms since the preceding Wednesday. She was taken to the operating room for laparoscopic, possible open appendectomy. At the time of her laparoscopy she was found have a ruptured appendicitis with an abscess. This was converted to an open procedure. She did tolerate this well. The skin and subcutaneous tissue of the right lower quadrant incision was left open. On the she had an episode of tachycardia and difficulty breathing. She was found have an elevated and rising troponin, elevated lactate and markedly elevated d-dimer. CT angiography did not reveal any acute pulmonary embolus. Nevertheless, with the troponin elevating over a few hours. Transfer to a higher level of care was indicated for possible NSTEMI. HPI Initial Comments: See history and physical - Discharge Data Discharge Date: 09/02/19 Discharge Disposition: DC/Tfer to Acute Hospital 02 Condition: Fair - Referral to Home Health Primary Care Physician: Sara Dickinson NP - Discharge Diagnosis/Problem(s) (1) Right lower quadrant abdominal pain SNOMED Code(s): 748339306 ICD Code: R10.31 - RIGHT LOWER QUADRANT PAIN Status: Acute Priority: High (2) Loss of appetite SNOMED Code(s): 20851271 ICD Code: R63.0 - ANOREXIA Status: Acute Priority: High (3) Appendicitis SNOMED Code(s): 03529075 ICD Code: K37 - UNSPECIFIED APPENDICITIS Status: Acute Priority: High Qualifiers: Appendicitis type: acute appendicitis Acute appendicitis type: with generalized peritonitis Appendicitis gangrene presence: without gangrene Appendicitis perforation presence: with perforation Appendicitis abscess presence: with abscess Qualified Code(s): K35.21 - Acute appendicitis with generalized peritonitis, with abscess (4) Hypothyroidism SNOMED Code(s): 77913787 ICD Code: E03.9 - HYPOTHYROIDISM, UNSPECIFIED Status: Acute Priority: Low Qualifiers: Hypothyroidism type: unspecified Qualified Code(s): E03.9 - Hypothyroidism , unspecified (5) Depression SNOMED Code(s): 34101857 ICD Code: F32.9 - MAJOR DEPRESSIVE DISORDER, SINGLE EPISODE, UNSPECIFIED Status: Acute Priority: Low Qualifiers: Major depression recurrence: unspecified whether recurrent Active/ Remission status: remission status unspecified (6) NSTEMI (non-ST elevated myocardial infarction) SNOMED Code(s): 99565295 ICD Code: I21.4 - NON-ST ELEVATION (NSTEMI) MYOCARDIAL INFARCTION Status: Acute - Patient Summary/Data Operative Procedure(s) Performed: Attempted laparoscopic appendectomy with conversion to open appendectomy Consults: Consultations 08/30/19 08:39 Consult to Physician [CONS] Routine 09/01/19 09:41 Consult to Physical Therapy [PT Evaluation and Treatment] [CONS] Routine - Patient Instructions Diet: Regular Diet as Tolerated Driving: Do Not Drive Showering/Bathing: May Shower Wound/Incision Care: Change Dressing Daily - Discharge Plan *PRESCRIPTION DRUG MONITORING PROGRAM REVIEWED*: Not Applicable *COPY OF PRESCRIPTION DRUG MONITORING REPORT IN PATIENT MERLENE: Not Applicable Home Medications: Home Meds Levothyroxine [Synthroid] 08/30/19 [History] Omeprazole 08/30/19 [History] Oxybutynin 08/30/19 [History] Sertraline HCl 08/30/19 [History] Forms: ED Department Discharge Referrals: Sara Dickinson NP [Primary Care Provider] - - Discharge Summary/Plan Comment DC Time >30 min.: Yes - General Info Date of Service: 09/01/19 Admission Dx/Problem (Free Text: Ruptured appendicitis with abscess Subjective Update: Set tachycardia with elevated and rising troponin. Elevated d-dimer. Elevated lactate. Functional Status: Reports: Pain Controlled, Tolerating Diet, Ambulating - Review of Systems General: Reports: Weakness. Denies: Fever, Fatigue, Malaise Pulmonary: Reports: Shortness of Breath. Denies: Sputum, Hemoptysis, Wheezing Cardiovascular: Reports: Palpitations Gastrointestinal: Reports: Abdominal Pain, Flatus. Denies: Constipation, Decreased Appetite, Diarrhea, Nausea, Vomiting Genitourinary: Reports: No Symptoms Musculoskeletal: Reports: No Symptoms Skin: Denies: Cyanosis, Jaundice, Mottled Neurological: Denies: Confusion, Dizziness Psychiatric: Denies: Confusion, Depression, Mood Lability - Patient Data Vitals - Most Recent: Last Vital Signs Temp 97.7 F 09/01/19 23:01 Pulse 84 09/01/19 23:01 Resp 14 09/01/19 23:01 BP 115/59 L 09/01/19 23:01 Pulse Ox 97 09/01/19 23:01 Weight - Most Recent: 215 lb 13.321 oz I&O - Last 24 hours: Intake & Output 09/01/19 09/02/19 09/02/19 19:59 03:59 11:59 Intake Total 550 Output Total 250 380 Balance 300 -380 Lab Results - Last 24 hrs: Laboratory Results - last 24 hr 09/01/19 09/01/19 09/01/19 Range/Units 20:22 20:24 20:24 WBC 24.62 H (4.0-11.0) K/uL RBC 3.99 L (4.30-5.90) M/uL Hgb 10.8 L (12.0-16.0) g/dL Hct 32.7 L (36.0-46.0) % MCV 82.0 (80.0-98.0) fL MCH 27.1 (27.0-32.0) pg MCHC 33.0 (31.0-37.0) g/dL RDW Std Deviation 48.4 (28.0-62.0) fl RDW Coeff of Gibran 16 H (11.0-15.0) % Plt Count 451 H (150-400) K/uL MPV 9.80 (7.40-12.00) fL Add Manual Diff YES Neutrophils % (Manual) 75 (48.0-80.0) % Band Neutrophils % 6 % Lymphocytes % (Manual) 15 L (16.0-40.0) % Monocytes % (Manual) 4 (0.0-15.0) % Nucleated RBC % 0.4 /100WBC Absolute Seg Neuts 18.5 H (1.4-5.7) Band Neutrophils # 1.5 Lymphocytes # (Manual) 3.7 H (0.6-2.4) Monocytes # (Manual) 1.0 H (0.0-0.8) Nucleated RBCs # 0 K/uL INR APTT (18.6-31.3) SEC D-Dimer, Quantitative 15.55 H (0.0-0.50) mg/L FEU ABG pH (7.35-7.45) ABG pCO2 (35-45) mmHG ABG pO2 (75-100) mmHG ABG HCO3 (22-26) mEq/L ABG Total CO2 ABG Base Excess (-2.0-2.0) Lactate (0.20-2.00) mmol/L Sodium (136-145) mmol/L Potassium (3.5-5.1) mmol/L Chloride (98-107) mmol/L Carbon Dioxide (21.0-32.0) mmol/L BUN (7.0-18.0) mg/dL Creatinine (0.6-1.0) mg/dL Est Cr Clr Drug Dosing mL/min Estimated GFR (MDRD) ml/min Glucose (74-106) mg/dL POC Glucose 191 H (60-110) mg/dL Calcium (8.5-10.1) mg/dL Troponin I (0.000-0.056) ng/mL Urine Color Urine Appearance Urine pH (5.0-8.0) Ur Specific [place] (1.001-1.035) Urine Protein (NEGATIVE) mg/dL Urine Glucose (UA) (NEGATIVE) mg/dL Urine Ketones (NEGATIVE) mg/dL Urine Occult Blood (NEGATIVE) Urine Nitrite (NEGATIVE) Urine Bilirubin (NEGATIVE) Urine Ictotest Urine Urobilinogen (<2.0) EU/dL Ur Leukocyte Esterase (NEGATIVE) Urine RBC (0-2/HPF) Urine WBC (0-5/HPF) Ur Epithelial Cells (NONE-FEW) Urine Bacteria (NEGATIVE) 09/01/19 09/01/19 09/01/19 Range/Units 20:24 20:24 20:24 WBC (4.0-11.0) K/uL RBC (4.30-5.90) M/uL Hgb (12.0-16.0) g/dL Hct (36.0-46.0) % MCV (80.0-98.0) fL MCH (27.0-32.0) pg MCHC (31.0-37.0) g/dL RDW Std Deviation (28.0-62.0) fl RDW Coeff of Gibran (11.0-15.0) % Plt Count (150-400) K/uL MPV (7.40-12.00) fL Add Manual Diff Neutrophils % (Manual) (48.0-80.0) % Band Neutrophils % % Lymphocytes % (Manual) (16.0-40.0) % Monocytes % (Manual) (0.0-15.0) % Nucleated RBC % /100WBC Absolute Seg Neuts (1.4-5.7) Band Neutrophils # Lymphocytes # (Manual) (0.6-2.4) Monocytes # (Manual) (0.0-0.8) Nucleated RBCs # K/uL INR 1.59 APTT 31.1 (18.6-31.3) SEC D-Dimer, Quantitative (0.0-0.50) mg/L FEU ABG pH (7.35-7.45) ABG pCO2 (35-45) mmHG ABG pO2 (75-100) mmHG ABG HCO3 (22-26) mEq/L ABG Total CO2 ABG Base Excess (-2.0-2.0) Lactate 3.0 H* (0.20-2.00) mmol/L Sodium 134 L (136-145) mmol/L Potassium 3.9 (3.5-5.1) mmol/L Chloride 100 (98-107) mmol/L Carbon Dioxide 21.5 (21.0-32.0) mmol/L BUN 13 (7.0-18.0) mg/dL Creatinine 0.9 (0.6-1.0) mg/dL Est Cr Clr Drug Dosing 43.65 mL/min Estimated GFR (MDRD) > 60.0 ml/min Glucose 211 H (74-106) mg/dL POC Glucose (60-110) mg/dL Calcium 8.4 L (8.5-10.1) mg/dL Troponin I 0.109 H* (0.000-0.056) ng/mL Urine Color Urine Appearance Urine pH (5.0-8.0) Ur Specific [place] (1.001-1.035) Urine Protein (NEGATIVE) mg/dL Urine Glucose (UA) (NEGATIVE) mg/dL Urine Ketones (NEGATIVE) mg/dL Urine Occult Blood (NEGATIVE) Urine Nitrite (NEGATIVE) Urine Bilirubin (NEGATIVE) Urine Ictotest Urine Urobilinogen (<2.0) EU/dL Ur Leukocyte Esterase (NEGATIVE) Urine RBC (0-2/HPF) Urine WBC (0-5/HPF) Ur Epithelial Cells (NONE-FEW) Urine Bacteria (NEGATIVE) 09/01/19 09/01/19 09/01/19 Range/Units 20:45 21:30 22:23 WBC (4.0-11.0) K/uL RBC (4.30-5.90) M/uL Hgb (12.0-16.0) g/dL Hct (36.0-46.0) % MCV (80.0-98.0) fL MCH (27.0-32.0) pg MCHC (31.0-37.0) g/dL RDW Std Deviation (28.0-62.0) fl RDW Coeff of Gibran (11.0-15.0) % Plt Count (150-400) K/uL MPV (7.40-12.00) fL Add Manual Diff Neutrophils % (Manual) (48.0-80.0) % Band Neutrophils % % Lymphocytes % (Manual) (16.0-40.0) % Monocytes % (Manual) (0.0-15.0) % Nucleated RBC % /100WBC Absolute Seg Neuts (1.4-5.7) Band Neutrophils # Lymphocytes # (Manual) (0.6-2.4) Monocytes # (Manual) (0.0-0.8) Nucleated RBCs # K/uL INR APTT (18.6-31.3) SEC D-Dimer, Quantitative (0.0-0.50) mg/L FEU ABG pH 7.270 L (7.35-7.45) ABG pCO2 50 H (35-45) mmHG ABG pO2 57 L (75-100) mmHG ABG HCO3 23 (22-26) mEq/L ABG Total CO2 21.1 ABG Base Excess -4.3 L (-2.0-2.0) Lactate (0.20-2.00) mmol/L Sodium (136-145) mmol/L Potassium (3.5-5.1) mmol/L Chloride (98-107) mmol/L Carbon Dioxide (21.0-32.0) mmol/L BUN (7.0-18.0) mg/dL Creatinine (0.6-1.0) mg/dL Est Cr Clr Drug Dosing mL/min Estimated GFR (MDRD) ml/min Glucose (74-106) mg/dL POC Glucose (60-110) mg/dL Calcium (8.5-10.1) mg/dL Troponin I 0.383 H* (0.000-0.056) ng/mL Urine Color YELLOW Urine Appearance SLT CLOUDY Urine pH 6.0 (5.0-8.0) Ur Specific [place] 1.025 (1.001-1.035) Urine Protein TRACE H (NEGATIVE) mg/dL Urine Glucose (UA) NEGATIVE (NEGATIVE) mg/dL Urine Ketones TRACE H (NEGATIVE) mg/dL Urine Occult Blood NEGATIVE (NEGATIVE) Urine Nitrite POSITIVE H (NEGATIVE) Urine Bilirubin SMALL H (NEGATIVE) Urine Ictotest NEGATIVE Urine Urobilinogen 0.2 (<2.0) EU/dL Ur Leukocyte Esterase NEGATIVE (NEGATIVE) Urine RBC 0-2 (0-2/HPF) Urine WBC 1-3 (0-5/HPF) Ur Epithelial Cells FEW (NONE-FEW) Urine Bacteria FEW (NEGATIVE) KELIN Results - Last 24 hrs: Microbiology 09/01/19 23:50 Anaerobic Blood Culture - Final Blood 08/29/19 19:10 Aerobic Blood Culture - Preliminary Blood - Venous - Lab Draw NO GROWTH AFTER 3 DAYS Anaerobic Blood Culture - Preliminary NO GROWTH AFTER 3 DAYS 08/29/19 19:40 Aerobic Blood Culture - Preliminary Blood - Venous NO GROWTH AFTER 3 DAYS Anaerobic Blood Culture - Preliminary NO GROWTH AFTER 3 DAYS Med Orders - Current: Current Medications Discontinued Medications Acetaminophen (Tylenol) 325 mg PO Q4H PRN PRN Reason: Fever Greater Than 101 Hydrocodone Bitart/Acetaminophen ([place] 325-5 Mg) 1 - 2 tab PO Q4H PRN PRN Reason: Pain (moderate 4-6) Last Admin: 09/01/19 16:35 Dose: 2 tab Albuterol (Proventil Neb Soln) 2.5 mg NEB ONETIME ONE Stop: 09/01/19 20:34 Last Admin: 09/01/19 20:47 Dose: 2.5 mg Albuterol/Ipratropium (Duoneb 3.0-0.5 Mg/3 Ml) 3 ml NEB Q6HRRT [facility] Last Admin: 09/01/19 17:46 Dose: 3 ml Aspirin (Aspirin) 325 mg PO NOW STA Stop: 09/01/19 21:39 Last Admin: 09/01/19 21:47 Dose: 325 mg Bupivacaine HCl (Marcaine 0.5%) Confirm Administered Dose 30 ml .ROUTE .STK-MED ONE Stop: 08/29/19 21:11 Cefazolin Sodium (Ancef) Confirm Administered Dose 1 gm .ROUTE .STK-MED ONE Stop: 08/29/19 21:11 Cefazolin Sodium (Ancef) Confirm Administered Dose 1 gm .ROUTE .STK-MED ONE Stop: 08/29/19 22:47 Diphenhydramine HCl (Benadryl) 25 mg IVPUSH Q6H PRN PRN Reason: Itching Diphenhydramine HCl (Benadryl) 25 mg PO Q6H PRN PRN Reason: Itching Enoxaparin Sodium (Lovenox) 85 mg 1 mg/kg (85 mg) SUBCUT DAILY [facility] Fentanyl (Sublimaze) Confirm Administered Dose 250 mcg .ROUTE .STK-MED ONE Stop: 08/29/19 21:09 Fentanyl (Sublimaze) 50 mcg IVPUSH Q5M PRN PRN Reason: Pain Fentanyl (Sublimaze) Confirm Administered Dose 250 mcg .ROUTE .STK-MED ONE Stop: 08/29/19 22:53 Glycopyrrolate (Robinul) Confirm Administered Dose 0.2 mg .ROUTE .STK-MED ONE Stop: 08/29/19 21:10 Heparin Sodium (Porcine) (Heparin Sodium) 5,000 units SUBCUT Q8H [facility] Last Admin: 09/01/19 16:38 Dose: 5,000 units Heparin Sodium (Porcine) (Heparin Sodium) 4,000 units IVPUSH ONETIME ONE Stop: 09/01/19 23:32 Last Admin: 09/02/19 00:35 Dose: Not Given Heparin Sodium (Porcine) (Heparin Sodium) 4,000 units IVPUSH .BOLUS ONE Stop: 09/01/19 23:49 Last Admin: 09/01/19 23:51 Dose: 4,000 units Sodium Chloride (Normal Saline) 1,000 mls @ 1,000 mls/hr IV .Bolus ONE Stop: 08/29/19 19:49 Last Admin: 08/29/19 18:57 Dose: 1,000 mls/hr Piperacillin Sod/Tazobactam (Sod 3.375 gm/ Sodium Chloride) 50 mls @ 100 mls/ hr IV ONETIME ONE Stop: 08/29/19 19:25 Last Admin: 08/29/19 19:04 Dose: 100 mls/hr Lactated Ringer's (Ringers, Lactated) 1,000 mls @ 125 mls/hr IV ASDIRECTED [facility] Last Admin: 08/29/19 21:07 Dose: 125 mls/hr Acetaminophen 1,000 mg/ Premix 100 mls @ 400 mls/hr IV Q6H PRN PRN Reason: Pain Metronidazole 500 mg/ Premix 100 mls @ 100 mls/hr IV ONETIME ONE Stop: 08/30/19 00:21 Last Admin: 08/30/19 01:08 Dose: Not Given Metronidazole 500 mg/ Premix 100 mls @ 100 mls/hr IV ONETIME ONE Stop: 08/30/19 00:24 Last Admin: 08/30/19 12:38 Dose: Not Given Metronidazole (Flagyl 500 Mg In Ns 100 Ml) Confirm Administered Dose 200 mls @ as directed .ROUTE .[facility] ONE Stop: 08/29/19 23:26 Last Admin: 08/30/19 01:08 Dose: Not Given Lactated Ringer's (Ringers, Lactated) 1,000 [facility]ls [facility] Last Admin: 08/31/19 01:46 Dose: 175 mls/hr Piperacillin Sod/Tazobactam (Sod 3.375 gm/ Sodium Chloride) 50 mls @ 100 mls/ hr IV Q6H [facility] Last Admin: 09/01/19 18:48 Dose: 100 mls/hr Metronidazole 500 mg/ Premix 100 mls @ 100 mls/hr IV QID [facility] Last Admin: 09/01/19 17:29 Dose: 100 mls/hr Acetaminophen (Ofirmev) Confirm Administered Dose 100 mls @ as directed .ROUTE .[facility] ONE Stop: 08/30/19 00:25 Lactated Ringer's (Ringers, Lactated) 1,000 mls @ 999 mls/hr IV BOLUS [facility] Last Admin: 08/30/19 04:06 Dose: 999 mls/hr Albumin Human (Buminate 5%) 250 mls @ 500 mls/hr IV ASDIRECTED [facility] Albumin Human (Buminate 5%) 250 mls @ 500 mls/hr IV ONETIME ONE Stop: 08/30/19 06:44 Last Admin: 08/30/19 06:18 Dose: 500 mls/hr Norepinephrine Bitartrate (Norepinephr-0.9% Nacl 4 Mg/250) 4 mg in 250 mls @ 7.5 mls/hr IV TITRATE [facility]; Protocol Last Titration: 09/01/19 03:30 Dose: 0 mcg/min, 0 mls/hr Sodium Chloride (Normal Saline) 1,000 mls @ 999 mls/hr IV .Bolus ONE Stop: 08/30/19 14:14 Last Admin: 08/30/19 13:27 Dose: 999 mls/hr Magnesium Sulfate 2 gm/ Premix 50 mls @ 50 mls/hr IV ONETIME ONE Stop: 08/30/19 14:42 Last Admin: 08/30/19 13:59 Dose: 50 mls/hr Lactated Ringer's (Ringers, Lactated) 1,000 mls @ 100 mls/hr IV ASDIRECTED [facility] Last Admin: 08/31/19 11:44 Dose: 100 mls/hr Lactated Ringer's (Ringers, Lactated) 1,000 mls @ 999 mls/hr IV ONETIME ONE Stop: 08/31/19 09:22 Last Admin: 08/31/19 08:29 Dose: 999 mls/hr Lactated Ringer's (Ringers, Lactated) 1,000 mls @ 999 mls/hr IV .BOLUS ONE Stop: 08/31/19 15:52 Last Admin: 08/31/19 14:55 Dose: 999 mls/hr Lactated Ringer's (Ringers, Lactated) 1,000 mls @ 150 mls/hr IV Q6H [facility] Last Admin: 09/01/19 03:21 Dose: 150 mls/hr Vancomycin HCl (Vancomycin 1.5 Gm/300 Ml Premix) 300 mls @ 200 mls/hr IV Q24H [facility] Last Admin: 09/01/19 22:59 Dose: 200 mls/hr Heparin Sodium/Sodium Chloride (Heparin-1/2ns 25,000 Units/500) 25,000 unit in 500 mls @ 19.58 mls/hr IV TITRATE [facility]; Protocol Last Admin: 09/01/19 23:49 Dose: 10 units/kg/hr, 19.58 mls/hr Sodium Chloride (Normal Saline) 1,000 mls @ 125 mls/hr IV ASDIRECTED [facility] Last Admin: 09/01/19 23:53 Dose: 125 mls/hr Iopamidol (Isovue-370 (76%)) 100 ml IVPUSH ONETIME STA Stop: 08/29/19 19:44 Last Admin: 08/29/19 19:44 Dose: 100 ml Iopamidol (Isovue-370 (76%)) 100 ml IVPUSH ONETIME ONE Stop: 09/01/19 22:21 Last Admin: 09/01/19 22:20 Dose: 100 ml Ketorolac Tromethamine (Toradol) Confirm Administered Dose 30 mg .ROUTE .STK- MED ONE Stop: 08/29/19 21:10 Levothyroxine Sodium (Synthroid) 88 mcg PO ACBREAKFAST [facility] Last Admin: 09/01/19 06:41 Dose: 88 mcg Lidocaine (Xylocaine-Mpf 2%) Confirm Administered Dose 5 ml .ROUTE .STK-MED ONE Stop: 08/29/19 21:10 Metoclopramide HCl (Reglan) 10 mg IV Q6H [facility] Last Admin: 09/01/19 18:41 Dose: 10 mg Midazolam HCl (Versed 1 Mg/Ml) Confirm Administered Dose 2 mg .ROUTE .STK-MED ONE Stop: 08/29/19 21:09 Morphine Sulfate (Morphine) 6 mg IVPUSH ONETIME ONE Stop: 08/29/19 18:13 Last Admin: 08/29/19 18:23 Dose: 6 mg Morphine Sulfate (Morphine [employer] 30 Mg In 30 Ml) 0 mg IV ASDIRECTED [facility]; Protocol Last Admin: 08/30/19 01:35 Dose: 30 mg Morphine Sulfate (Morphine) 3 mg IVPUSH Q4H PRN PRN Reason: Pain Last Admin: 09/01/19 18:43 Dose: 3 mg Naloxone HCl (Narcan) 0.04 mg IVPUSH Q3M PRN PRN Reason: Respiratory Depression Ondansetron HCl (Zofran) 4 mg IVPUSH ONETIME ONE Stop: 08/29/19 18:13 Last Admin: 08/29/19 18:21 Dose: 4 mg Ondansetron HCl (Zofran) Confirm Administered Dose 4 mg .ROUTE .STK-MED ONE Stop: 08/29/19 21:10 Ondansetron HCl (Zofran) 4 mg IVPUSH Q6H PRN PRN Reason: Nausea/Vomiting Last Admin: 09/01/19 15:23 Dose: 4 mg Ondansetron HCl (Zofran) 4 mg IVPUSH Q6H PRN PRN Reason: Nausea/Vomiting Potassium Chloride (Klor-Con M20) 40 meq PO ONETIME ONE Stop: 09/01/19 14:16 Last Admin: 09/01/19 14:43 Dose: 40 meq Propofol (Diprivan 20 Ml) Confirm Administered Dose 200 mg .ROUTE .STK-MED ONE Stop: 08/29/19 21:09 Rocuronium [place] (Zemuron) Confirm Administered Dose 100 mg .ROUTE .STK-MED ONE Stop: 08/29/19 21:10 Sertraline HCl (Zoloft) 100 mg PO DAILY [facility] Last Admin: 09/01/19 09:55 Dose: 100 mg Sodium Chloride (Saline Flush) 10 ml FLUSH ASDIRECTED PRN PRN Reason: Keep Vein Open Sodium Chloride (Saline Flush) 2.5 ml FLUSH ASDIRECTED PRN PRN Reason: Keep Vein Open Sugammadex Sodium ([place]) Confirm Administered Dose 200 mg .ROUTE .STK-MED ONE Stop: 08/29/19 22:12 Vancomycin HCl (Pharmacy To Dose - Vancomycin) 1 dose .XX ASDIRECTED [facility] - Exam Quality Assessment: Reports: Supplemental Oxygen, Urine Catheter General: Reports: Alert, Oriented, Cooperative, Moderate Distress HEENT: Reports: Pupils Equal, Pupils Reactive. Denies: Scleral Icterus Neck: Reports: Supple Lungs: Reports: Crackles (Posteriorly bilaterally). Denies: Wheezing Cardiovascular: Reports: Regular Rate, Regular Rhythm, No Murmurs, Tachycardia GI/Abdominal Exam: Soft, Non-Tender, Abnormal Bowel Sounds (Hypoactive). No: Guarding, Rigid, Rebound (Female) Exam: Deferred Rectal (Female) Exam: Deferred Back Exam: Reports: Normal Inspection, Full Range of Motion Extremities: Normal Inspection, Normal Range of Motion, Non-Tender, No Pedal Edema, Normal Capillary Refill Skin: Reports: Other (Right lower quadrant incision remains packed open. Dressing and packing were changed on August 31, and the wound is clean.) Neurological: Reports: No New Focal Deficit Psy/Mental Status: Reports: Alert, Normal Affect, Normal Mood, Anxious
== END 2019-09-02 00:20 | DRG 338 ==
LOC: MW.ED 17:40 → MW.SDS 20:47 → MW.ICU 20:48 → OBSVTOIN 20:48 → MW.MS 09-01 16:10
PROVIDERS: ADMIT Surgery; ATTEND Surgery
PROC: 0DTJ0ZZ Resection of Appendix, Open Approach (ICD-10-PCS; principal; 2019-08-29)
PROC: 0WJG4ZZ Inspection of Peritoneal Cavity, Percutaneous Endoscopic Approach (ICD-10-PCS; 2019-08-29)
PROC: 3E033XZ Introduction of Vasopressor into Peripheral Vein, Percutaneous Approach (ICD-10-PCS; 2019-08-29)
DX: K35.21 Acute appendicitis with generalized peritonitis, with abscess (principal); A41.9 Sepsis, unspecified organism; I21.4 Non-ST elevation (NSTEMI) myocardial infarction; R65.21 Severe sepsis with septic shock; N17.9 Acute kidney failure, unspecified; N39.0 Urinary tract infection, site not specified; K21.9 Gastro-esophageal reflux disease without esophagitis; Z20.828 Contact with and (suspected) exposure to other viral communicable diseases; E83.42 Hypomagnesemia; E03.9 Hypothyroidism, unspecified; F32.9 Major depressive disorder, single episode, unspecified; Z79.890 Hormone replacement therapy; Z79.899 Other long term (current) drug therapy; Z90.49 Acquired absence of other specified parts of digestive tract; Z53.31 Laparoscopic surgical procedure converted to open procedure; K35.80 Unspecified acute appendicitis
CPT/HCPCS: 36415; 74177; 80053; 81001; 83605; 84484; 85025; 85610; 87040 ×2; 87086; 87088; 87186; 96361; 96365; 96375; 99285; J2270; J2405; J2543; J7030; J7050; Q9967; U0002; 36600; 51702; 71045; 71045-26; 71275; 71275-26; 80048; 82803; 82962; 83735; 84100; 85007; 85027; 85379; 85730; 88304; 93005; 94640; 97161-GP; 99284; A9270-GY; J0131; J0690; J1644; J1885; J2001; J2250; J2274; J2704; J2765; J3010; J3370; J3475; J3490; J7120; J7620-GY

== ENCOUNTER 2020-03-29 06:29 | Day surgery (SDC) | payer MEDICARE, MEDICAID ==
[~2020-03-29 06:29] MED LIST: Lactated Ringers 1,000 ML IV SCH
[2020-03-29] MEDS ORDERED: Midazolam 1 MG/ML 2 ML SDV ONE (07:07)
[2020-03-29] MEDS ORDERED: Lidocaine 2% 5 ML SDV ONE (07:07)
[2020-03-29] MEDS ORDERED: fentaNYL 100 MCG/2 ML SDV ONE (07:07)
[2020-03-29] MEDS ORDERED: Propofol 200 MG/20 ML SDV ONE (07:07)
--- NOTE | 2020-03-29 07:29 | PCM.PREANE ---
Preanesthetic Assessment - Anesthesia/Transfusion/Family Hx Anesthesia History: Prior Anesthesia Without Reaction Family History of Anesthesia Reaction: No Transfusion History: No Prior Transfusion(s) Intubation History: Unknown - Review of Systems General: No Symptoms Pulmonary: No Symptoms Cardiovascular: No Symptoms Gastrointestinal: Other (hemoccult positive test and anemia) Neurological: No Symptoms Other: Reports: None - Physical Assessment Height: 5 ft 2 in Weight: 85.729 kg ASA Class: 3 Mental Status: Alert & Oriented x3 Airway Class: Mallampati = 2 Dentition: Reports: Normal Dentition (badly worn out edges on lower teeth) Thyro-Mental Finger Breadths: 3 Mouth Opening Finger Breadths: 3 ROM/Head Extension: Limited/Partial Lungs: Clear to Auscultation, Normal Respiratory Effort Cardiovascular: Regular Rate, Regular Rhythm - Allergies Allergies/Adverse Reactions: Allergies Allergy/AdvReac Type Severity Reaction Status Date / Time Sulfa (Sulfonamide Allergy Nausea and Verified 03/25/20 10:27 Antibiotics) Vomiting - Blood Blood Available: No - Anesthesia Plan Pre-Op Medication Ordered: None - Acknowledgements Anesthesia Type Planned: MAC Pt an Appropriate Candidate for the Planned Anesthesia: Yes Alternatives and Risks of Anesthesia Discussed w Pt/Guardian: Yes Pt/Guardian Understands and Agrees with Anesthesia Plan: Yes PreAnesthesia Questionnaire HEENT History: Reports: Impaired Vision Other HEENT History: wears glasses Cardiovascular History: Reports: CAD, High Cholesterol, IN (non-ST elevation IN) Other Cardiovascular History: states had a heart attack and three strokes when had appendectomy in August of 2019, states had a heart monitor placed under skin left chest since then Respiratory History: Reports: None Gastrointestinal History: Reports: GERD, Hiatal Hernia Genitourinary History: Reports: Other (See Below) Other Genitourinary History: states has had bladder repair surgery [employer] History: Reports: Musculoskeletal History: Reports: Fracture Other Musculoskeletal History: states had a fractured left wrist in the past Neurological History: Reports: None Psychiatric History: Reports: Anxiety, Depression Endocrine/Metabolic History: Reports: Hypothyroidism, Obesity/BMI 30+ (BMI 34.6) Hematologic History: Reports: Anemia Other Hematologic History: states has had iron infusions Immunologic History: Reports: None Oncologic (Cancer) History: Reports: None Dermatologic History: Reports: None - Infectious Disease History Infectious Disease History: Reports: Chicken Pox, Measles, Mumps Other Infectious Disease History: when a child - Past Surgical History Head Surgeries/Procedures: Reports: None HEENT Surgical History: Reports: Other (See Below) Other HEENT Surgeries/Procedures: 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 GI Surgical History: Reports: Appendectomy Female Surgical History: Reports: Hysterectomy, Tubal Ligation, Other (See Below) (bladder repair) Endocrine Surgical History: Reports: None Neurological Surgical History: Reports: None Musculoskeletal Surgical History: Reports: None - SUBSTANCE USE Tobacco Use Status *Q: Never Tobacco User - HOME MEDS Home Medications: Home Meds Levothyroxine [Synthroid] 1 tab PO DAILY 08/30/19 [History] Omeprazole 1 tab PO DAILY 08/30/19 [History] Oxybutynin 1 tab PO TID 08/30/19 [History] Sertraline HCl 2 tab PO DAILY 08/30/19 [History] Aspirin 1 tab PO DAILY 03/25/20 [History] Calcium Carb, Citrate/Vit D3 [Calcium + D3 ER Tablet] 1 tab PO DAILY 03/25/20 [History] Cholecalciferol (Vitamin D3) [Vitamin D3] 1 tab PO DAILY 03/25/20 [History] Cranberry Conc/Ascorbic Acid [Cranberry Plus Vitamin C Sftgl] 1 tab PO DAILY 03/25/20 [History] Furosemide 1 tab PO DAILY 03/25/20 [History] Magnesium Oxide 2 tab PO DAILY 03/25/20 [History] Magnesium Oxide 3 tab PO DAILY 03/25/20 [History] Niacinamide [Niacin] 1 tab PO DAILY 03/25/20 [History] Potassium Chloride 1 pkt PO DAILY 03/25/20 [History] atorvaSTATin [Lipitor] 1 tab PO BEDTIME 03/25/20 [History] - CURRENT (IN HOUSE) MEDS Current Meds: Current Medications Lactated Ringer's (Ringers, Lactated) 1,000 mls @ 125 mls/hr IV ASDIRECTED AURA Discontinued Medications Fentanyl (Sublimaze) Confirm Administered Dose 100 mcg .ROUTE .STK-MED ONE Stop: 03/29/20 07:08 Lidocaine (Xylocaine-Mpf 2%) Confirm Administered Dose 5 ml .ROUTE .STK-MED ONE Stop: 03/29/20 07:08 Midazolam HCl (Versed 1 Mg/Ml) Confirm Administered Dose 2 mg .ROUTE .STK-MED ONE Stop: 03/29/20 07:08 Propofol (Diprivan 20 Ml) Confirm Administered Dose 200 mg .ROUTE .STK-MED ONE Stop: 03/29/20 07:08
[2020-03-29] MEDS ORDERED: ePHEDrine 50 MG/ML SDV ONE (07:54)
--- NOTE | 2020-03-29 08:12 | PCM.OPNOTE ---
- General Post-Op/Procedure Note Date of Surgery/Procedure: 03/29/20 Operative Procedure(s): Esophagogastroduodenoscopy w/ antral biopsy Pre Op Diagnosis: Iron deficiency anemia. Dysphagia. Gastroesophageal reflux disease with hiatal hernia. Post-Op Diagnosis: Chronic gastritis. Hiatal hernia with superficial linear erosions. Anesthesia Technique: MAC (ASA III) Primary Surgeon: Lee Cavazos Condition: Good Free Text/Narrative:: DICTATION [id number] CPT CODE 20844
[2020-03-29] MEDS ORDERED: Lactated Ringers 1,000 ML IV SCH (08:15)
--- NOTE | 2020-03-29 08:25 | PCM.POSTAN ---
POST ANESTHESIA ASSESSMENT - MENTAL STATUS Mental Status: Alert, Oriented - VITAL SIGNS Vital Signs: Last Vital Signs Temp 36.3 C 03/29/20 06:50 Pulse 66 03/29/20 08:22 Resp 12 03/29/20 08:22 BP 107/52 L 03/29/20 08:22 Pulse Ox 93 L 03/29/20 08:22 - RESPIRATORY Respiratory Status: Respiratory Rate WNL, Airway Patent, O2 Saturation Stable - CARDIOVASCULAR CV Status: Pulse Rate WNL, Blood Pressure Stable - GASTROINTESTINAL GI Status: No Symptoms - PAIN Pain Score: 0 - POST OP HYDRATION Hydration Status: Adequate & Stable - OBSERVATIONS Free Text/Narrative:: No anesthesia problems
--- NOTE | 2020-03-29 08:58 | PCM48HPAN ---
Post Anesthesia Note - EVALUATION WITHIN 48HRS OF ANESTHETIC Vital Signs in Normal Range: Yes Patient Participated in Evaluation: Yes Respiratory Function Stable: Yes Airway Patent: Yes Cardiovascular Function Stable: Yes Hydration Status Stable: Yes Pain Control Satisfactory: Yes Nausea and Vomiting Control Satisfactory: Yes Mental Status Recovered: Yes Vital Signs: Last Vital Signs Temp 36.3 C 03/29/20 06:50 Pulse 66 03/29/20 08:22 Resp 12 03/29/20 08:22 BP 107/52 L 03/29/20 08:22 Pulse Ox 93 L 03/29/20 08:22 - COMMENTS/OBSERVATIONS Free Text/Narrative:: No anesthesia problems
--- NOTE | 2020-03-29 09:24 | OR ---
SURGEON: Lee Cavazos M.D. DATE OF PROCEDURE: 03/29/2020 OPERATION PERFORMED: Esophagogastroduodenoscopy with biopsy. PRIMARY SURGEON: Lee Cavazos M.D. ANESTHESIA: MAC. ASA CLASSIFICATION: III. PREOPERATIVE DIAGNOSES: 1. Iron-deficiency anemia. 2. Dysphagia. 3. History of gastroesophageal reflux disease. 4. Hiatal hernia. POSTOPERATIVE DIAGNOSES: 1. Mild to moderate gastritis. 2. Large hiatal hernia with linear erosions. DESCRIPTION OF PROCEDURE: The patient was taken to the endoscopy room and positioned on the endoscopy table in the supine position. Time-out was called for appropriate identification of the patient and procedure. Monitored anesthesia care was provided. The bite block was placed between the patient's teeth. The gastroscope was inserted through the bite block into the oropharynx and advanced with minimal difficulty through the esophagus and stomach into the duodenum where examination was now carried out in a retrograde fashion. The duodenum showed no acute inflammatory changes or ulcerations. The stomach did show mild- to-moderate gastritis. Antral biopsies were obtained to look for the presence of Helicobacter pylori. The gastroscope was retroflexed to visualize the proximal stomach. The patient did have a large hiatal hernia. The scope was then straightened and slowly withdrawn. The hiatal hernia was easily visualized and did show multiple linear erosions. No acute ulcerations were noted and no tumors were noted. The GE junction was well defined and showed no acute inflammatory changes or ulcerations. The esophagus itself demonstrated fair contractility. No mid or proximal lesions were identified. The vocal cords were visualized as the scope was withdrawn and noted to move symmetrically. The gastroscope was then removed with the patient having tolerated the procedure well. She was taken to recovery room in satisfactory condition. KRYSTIN / LLUVIA /[id number]
== END 2020-03-29 09:00 | disposition home or self-care (01) ==
LOC: MW.SDS 06:29
PROVIDERS: ATTEND Surgery
DX: K29.50 Unspecified chronic gastritis without bleeding (principal); D50.9 Iron deficiency anemia, unspecified; K44.9 Diaphragmatic hernia without obstruction or gangrene; F41.9 Anxiety disorder, unspecified; F32.9 Major depressive disorder, single episode, unspecified; I25.10 Atherosclerotic heart disease of native coronary artery without angina pectoris; I50.9 Heart failure, unspecified; E87.6 Hypokalemia; E03.9 Hypothyroidism, unspecified; I25.2 Old myocardial infarction; K21.9 Gastro-esophageal reflux disease without esophagitis; E78.00 Pure hypercholesterolemia, unspecified; E66.9 Obesity, unspecified; Z86.73 Personal history of transient ischemic attack (TIA), and cerebral infarction without residual deficits; Z88.2 Allergy status to sulfonamides; Z79.899 Other long term (current) drug therapy; Z79.82 Long term (current) use of aspirin; Z79.890 Hormone replacement therapy; Z90.49 Acquired absence of other specified parts of digestive tract; Z98.890 Other specified postprocedural states; Z68.34 Body mass index [BMI] 34.0-34.9, adult
CPT/HCPCS: 43239; J2001; J2250; J2704; J3010; J7120

== ENCOUNTER 2020-08-30 07:14 | Day surgery (SDC) | payer MEDICARE, MEDICAID ==
[2020-08-30] MEDS ORDERED: Propofol 200 MG/20 ML SDV ONE ×2 (07:23→09:00)
[2020-08-30] MEDS ORDERED: Lidocaine 2% 5 ML SDV ONE (07:23)
--- NOTE | 2020-08-30 08:26 | PCM.PREANE ---
Preanesthetic Assessment - Anesthesia/Transfusion/Family Hx Anesthesia History: Prior Anesthesia Without Reaction Other Type of Anesthesia Reaction Comment: non-ST elevation myocardial infarction and TIA following appy in 09/04/19 Family History of Anesthesia Reaction: No Transfusion History: No Prior Transfusion(s) Intubation History: Unknown - Review of Systems General: No Symptoms Pulmonary: No Symptoms Cardiovascular: No Symptoms Gastrointestinal: No Symptoms Neurological: No Symptoms Other: Reports: None - Physical Assessment NPO Status Date: 08/30/20 NPO Status Time: 00:01 Vital Signs: Last Vital Signs Temp 97.9 F 08/30/20 07:29 Pulse 65 08/30/20 07:29 Resp 15 08/30/20 07:29 BP 138/54 L 08/30/20 07:29 Pulse Ox 94 L 08/30/20 07:29 Height: 5 ft 2 in Weight: 185 lb ASA Class: 3 Mental Status: Alert & Oriented x3 Airway Class: Mallampati = 2 Dentition: Reports: Normal Dentition ROM/Head Extension: Full Lungs: Clear to Auscultation, Normal Respiratory Effort Cardiovascular: Regular Rate, Regular Rhythm - Allergies Allergies/Adverse Reactions: Allergies Allergy/AdvReac Type Severity Reaction Status Date / Time Sulfa (Sulfonamide Allergy Nausea and Verified 08/26/20 08:37 Antibiotics) Vomiting - Acknowledgements Anesthesia Type Planned: General Anesthesia Pt an Appropriate Candidate for the Planned Anesthesia: Yes Alternatives and Risks of Anesthesia Discussed w Pt/Guardian: Yes Pt/Guardian Understands and Agrees with Anesthesia Plan: Yes Additional Comments: npo anxiety depression jerrica tob none etoh occ obesity bmi 34 ND X 1 2019 - soon after open appy in August 2019, pt transferred to [place] for non stemi ND. On the way she had CVA and became septic CVA manifested as confusion, dysarthria, and facial droop that lasted 2 months ICM inserted Sep 2019 for afib monitoring echo showed nl lv ef, mild lvh, mod pfo pr has been on baby ASA par no questions PreAnesthesia Questionnaire HEENT History: Reports: Impaired Vision Other HEENT History: wears glasses Cardiovascular History: Reports: CAD, High Cholesterol, ND Other Cardiovascular History: states had a heart attack and three strokes when had appendectomy in August of 2019, states had a heart monitor placed under skin left chest since then Respiratory History: Reports: None Gastrointestinal History: Reports: GERD, Hiatal Hernia Genitourinary History: Reports: Other (See Below) Other Genitourinary History: states has had bladder repair surgery [employer] History: Reports: Musculoskeletal History: Reports: Fracture Other Musculoskeletal History: states had a fractured left wrist in the past Neurological History: Reports: None Psychiatric History: Reports: Anxiety, Depression Endocrine/Metabolic History: Reports: Hypothyroidism, Obesity/BMI 30+ Hematologic History: Reports: Anemia Other Hematologic History: states has had iron infusions Immunologic History: Reports: None Oncologic (Cancer) History: Reports: None Dermatologic History: Reports: None - Infectious Disease History Infectious Disease History: Reports: Chicken Pox, Measles, Mumps Other Infectious Disease History: when a child - Past Surgical History Head Surgeries/Procedures: Reports: None HEENT Surgical History: Reports: Other (See Below) Other HEENT Surgeries/Procedures: 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 Cardiovascular Surgical History: Reports: None Respiratory Surgical History: Reports: None GI Surgical History: Reports: Appendectomy Female Surgical History: Reports: Hysterectomy, Tubal Ligation, Other (See Below) Other Female Surgeries/Procedures: bladder repair Endocrine Surgical History: Reports: None Neurological Surgical History: Reports: None Musculoskeletal Surgical History: Reports: None Oncologic Surgical History: Reports: None Dermatological Surgical History: Reports: None - SUBSTANCE USE Tobacco Use Status *Q: Never Tobacco User - HOME MEDS Home Medications: Home Meds Levothyroxine [Synthroid] 88 mcg PO DAILY 08/30/19 [History] Omeprazole 20 mg PO DAILY 08/30/19 [History] Oxybutynin 5 mg PO TID 08/30/19 [History] Sertraline HCl 200 mg PO DAILY 08/30/19 [History] Aspirin 81 mg PO DAILY 03/25/20 [History] Calcium Carb, Citrate/Vit D3 [Calcium + D3 ER Tablet] 1 tab PO DAILY 03/25/20 [History] Cholecalciferol (Vitamin D3) [Vitamin D3] 25 mcg PO DAILY 03/25/20 [History] Cranberry Conc/Ascorbic Acid [Cranberry Plus Vitamin C Sftgl] 1 tab PO DAILY 03/25/20 [History] Furosemide 20 mg PO DAILY 03/25/20 [History] Magnesium Oxide 3 tab PO BEDTIME 03/25/20 [History] Magnesium Oxide 400 mg PO WITHBREAKFAST 03/25/20 [History] Niacinamide [Niacin] 500 mg PO DAILY 03/25/20 [History] Potassium Chloride 15 ml PO DAILY 03/25/20 [History] atorvaSTATin [Lipitor] 40 mg PO BEDTIME 03/25/20 [History] Iron Sucrose Complex [Venofer] 1 infusion IV ASDIRECTED 08/26/20 [History] - CURRENT (IN HOUSE) MEDS Current Meds: Current Medications Lactated Ringer's (Ringers, Lactated) 1,000 mls @ 125 mls/hr IV ASDIRECTED [facility] Last Admin: 08/30/20 07:45 Dose: 125 mls/hr Documented by: Discontinued Medications Lidocaine (Lidocaine 2% 5 Ml Sdv) Confirm Administered Dose 5 ml .ROUTE .STK-MED ONE Stop: 08/30/20 07:24 Propofol (Propofol 200 Mg/20 Ml Sdv) Confirm Administered Dose 200 mg .ROUTE .STK-MED ONE Stop: 08/30/20 07:24
--- NOTE | 2020-08-30 09:19 | PCM.OPNOTE ---
- General Post-Op/Procedure Note Date of Surgery/Procedure: 08/30/20 Operative Procedure(s): Colonoscopy Pre Op Diagnosis: Anemia Post-Op Diagnosis: No evidence of neoplasia Anesthesia Technique: MAC (ASA III) Primary Surgeon: Lee Cavazos Condition: Good Free Text/Narrative:: DICTATION [id number] CPT CODE 22823
[2020-08-30] MEDS ORDERED: Lactated Ringers 1,000 ML IV SCH (09:30)
--- NOTE | 2020-08-30 09:35 | PCM.POSTAN ---
POST ANESTHESIA ASSESSMENT - MENTAL STATUS Mental Status: Alert (no anesthetic problems), Oriented - VITAL SIGNS Vital Signs: Last Vital Signs Temp 96.8 F L 08/30/20 09:13 Pulse 59 L 08/30/20 09:29 Resp 16 08/30/20 09:29 BP 111/49 L 08/30/20 09:29 Pulse Ox 98 08/30/20 09:29 - RESPIRATORY Respiratory Status: Respiratory Rate WNL, Airway Patent, O2 Saturation Stable - CARDIOVASCULAR CV Status: Pulse Rate WNL, Blood Pressure Stable - GASTROINTESTINAL GI Status: No Symptoms - POST OP HYDRATION Hydration Status: Adequate & Stable
--- NOTE | 2020-08-30 10:23 | PCM48HPAN ---
Post Anesthesia Note - EVALUATION WITHIN 48HRS OF ANESTHETIC Vital Signs in Normal Range: Yes Patient Participated in Evaluation: Yes Respiratory Function Stable: Yes Airway Patent: Yes Cardiovascular Function Stable: Yes Hydration Status Stable: Yes Pain Control Satisfactory: Yes Nausea and Vomiting Control Satisfactory: Yes Mental Status Recovered: Yes Vital Signs: Last Vital Signs Temp 98.1 F 08/30/20 09:34 Pulse 60 08/30/20 09:34 Resp 15 08/30/20 09:34 BP 114/55 L 08/30/20 09:34 Pulse Ox 98 08/30/20 09:34
--- NOTE | 2020-08-30 15:39 | OR ---
SURGEON: Lee Cavazos M.D. DATE OF PROCEDURE: 08/30/2020 OPERATION PERFORMED: Colonoscopy. PRIMARY SURGEON: Lee Cavazos MD ANESTHESIA: MAC. ASA CLASSIFICATION: III. PREOPERATIVE DIAGNOSIS: Anemia. POSTOPERATIVE DIAGNOSIS: No evidence of neoplasia. DESCRIPTION OF PROCEDURE: The patient was taken to the endoscopy room and positioned on the endoscopy table in the left lateral decubitus position. Time-out was called for appropriate identification of the patient and procedure. Monitored anesthesia care was provided. The colonoscope was inserted into the rectum and advanced with moderate difficulty to the cecum. The cecum was identified by internal landmarks and external pressure. Once the colonoscope had been inserted to the cecum, it was retroflexed to visualize the ascending colon from below, then straightened, and slowly withdrawn. The cecum, ascending colon, hepatic flexure, transverse colon, splenic flexure, descending colon, sigmoid colon, and rectum were very well visualized. No tumors, polyps, diverticula, or angiodysplastic changes were noted anywhere in the lower gastrointestinal tract. Once the colonoscope was withdrawn to the rectum, it was retroflexed to visualize the anal orifice from above. Again, no tumors or polyps were seen and there were no acute hemorrhoidal changes. The colonoscope was then straightened, the rectum aspirated, and the colonoscope removed. The patient tolerated the procedure well and was taken to recovery room in stable condition. KRYSTIN / LLUVIA /[id number]
== END 2020-08-30 10:03 | disposition home or self-care (01) ==
LOC: MW.SDS 07:14
PROVIDERS: ATTEND Surgery
DX: D50.9 Iron deficiency anemia, unspecified (principal); K29.50 Unspecified chronic gastritis without bleeding; M81.0 Age-related osteoporosis without current pathological fracture; I25.10 Atherosclerotic heart disease of native coronary artery without angina pectoris; E78.5 Hyperlipidemia, unspecified; E03.9 Hypothyroidism, unspecified; I25.2 Old myocardial infarction; E78.00 Pure hypercholesterolemia, unspecified; F41.9 Anxiety disorder, unspecified; F32.9 Major depressive disorder, single episode, unspecified; E66.9 Obesity, unspecified; Z68.34 Body mass index [BMI] 34.0-34.9, adult; Z86.19 Personal history of other infectious and parasitic diseases; Z88.2 Allergy status to sulfonamides; Z79.82 Long term (current) use of aspirin; Z79.890 Hormone replacement therapy; Z79.899 Other long term (current) drug therapy; Z86.73 Personal history of transient ischemic attack (TIA), and cerebral infarction without residual deficits
CPT/HCPCS: 45378; J2704; J7120; 00811